=== PATIENT | male | born 1985 | race Caucasian/White ===

== ENCOUNTER 2024-12-16 19:03 | Inpatient (IN) | payer OTHER, SELFPAY ==
[2024-12-16] MEDS: TYLENOL 650 MG PO (19:19)
[2024-12-16 19:22] VITALS: BP 133/47
[2024-12-16 19:26] VITALS: BP 126/58
[2024-12-16 19:55] VITALS: BP 105/55
[2024-12-16 19:58] VITALS: BMI 27.4
[2024-12-16 20:22] LABS: % Basophils 0.6 % (0-2); % Eosinophils 1.2 % (0-6); % Immature Granulocytes 1.2 % (0-0.5); % Lymphocytes 16.4 % (20.5-51.1); % Monocytes 6.7 % (1.7-9.3); % Neutrophils 73.9 % (42.2-75.2); Absolute Basophils 0.1 10^3/uL (0-0.2); Absolute Eosinophils 0.1 10^3/uL (0-0.7); Absolute Immature Granulocytes 0.1 10^3/uL (0-0.05); Absolute Lymphocytes 1.4 10^3/uL (1.2-3.4); Absolute Monocytes 0.6 10^3/uL (0.1-0.6); Absolute Neutrophils 6.2 10^3/uL (1.4-6.5); Hematocrit 41.1 % (39.0-52.0); Hemoglobin 14.6 g/dL (13.0-18.0); Mean Corp Hgb Conc. 35.5 g/dL (33.0-37.0); Mean Corpuscular Hgb 32.7 pg (27.0-31.0); Mean Corpuscular Volume 91.9 fL (80.0-94.0); Mean Platelet Volume 8.7 fL (7.4-10.4); Nucleated Red Blood Cells % 0 % (-); Platelet Count 209 10^3/uL (130-400); Red Blood Cell Count 4.47 10^6/uL (4.70-6.10); Red Cell Dist. Width 12.7 % (11.5-14.5); White Blood Cell Count 8.4 10^3/uL (4.8-10.8)
[2024-12-16] MEDS: DILAUDID 0.5 MG IV ×2 (20:26→23:51)
[2024-12-16] MEDS: ENTRESTO 24 MG/26 MG 1 TAB PO (20:27)
[2024-12-16 20:32] LABS: Opiates Positive (Negative)
[2024-12-16 20:34] LABS: Amphetamines Negative (Negative); Barbiturates Negative (Negative); Benzodiazepines Negative (Negative); Buprenorphine Negative (Negative); Cocaine Negative (Negative)
[2024-12-16 20:35] LABS: Marijuana Negative (Negative); Methadone Negative (Negative); Methamphetamines Negative (Negative); Phencyclidine Negative (Negative); Tricyclic Antidepressants Negative (Negative)
[2024-12-16 20:39] LABS: INR 0.96; PT 13.3 Sec (11.4-14.6)
[2024-12-16 20:41] LABS: APTT 57.9 Sec (23.4-35.0); Fentanyl, Urine Negative (Negative)
[2024-12-16 20:52] LABS: ALT (SGPT) 46 U/L (0-50); AST (SGOT) 50 U/L (17-59); Alkaline Phosphatase 125 U/L (38-126); Blood Urea Nitrogen 15 mg/dl (9-20); Carbon Dioxide 26 mmol/L (22-30); Chloride 105 mmol/L (98-107); Estimated Creatinine Clearance 114 ml/min; Glucose 114 mg/dl (70-99); Potassium 4.6 mmol/L (3.5-5.1); Sodium 136 mmol/L (135-145); Total Bilirubin 0.9 mg/dl (0.2-1.3); Total Protein 6.8 g/dl (6.3-8.2); eGFR > 60.00
[2024-12-16] MEDS: HEPARIN 6900 UNITS IV (20:56)
--- NOTE | 2024-12-16 22:10 | PTCARENOTE ---
Patient arrived from [place] transport. SR on the monitor, HR in the 80s. VSS on room air. Alert and oriented x3. Neurological check WNL. Heparin running at 2300 from [facility] [employer], ptt obtained, protocol followed. 02/21 lower back pain, PRN Tylenol
and Dilaudid administered, see MAR. Oriented pt to room, admission assessment completed. Call mckee within reach.
--- NOTE | 2024-12-16 22:18 | HPS.HSE ---
Family Physician
-
Family Physician: NOT KNOW UNKNOWN - PT DOES
Chief Complaint
-
back pain, pleuritic pain
History of Present Illness
39yo M with PMHX of endocarditis x3, hx of IVDA, not currently on rugs, smoker came to [facility] with pleuritic chest pain, found L subsegmental pulmonary embolism and strted on anticoagulation. Also Echo showed severe AI and TR with reduced EF and
concern for either previous endocarditis or a new one. Bcx grew GPC in one set. Patient also c/o lower back pain started for the past 2 weeks. Transferrd to for possible valvular repair
Medical History
Past Medical History
Past Medical History: Reports Other
Additional Past Medical History:
See HPI
Past Surgical History: Reports None
Social History
Tobacco: Smoker
Alcohol: None
Drug: Former User
Family History
Family History: Not pertinent
Allergies / Home Medications
Allergies reflects when Allergies were last updated in [facility].
Home Medications with original date entered in [facility]
Allergy/Medication List:
Allergies
Allergy/AdvReac Type Severity Reaction Status Date / Time
No Known Allergies Allergy Unverified 12/16/24 16:27
Review of Systems
-
A 12 point ROS was completed and negative except as noted: Yes
Respiratory: Reports See HPI
Musculoskeletal: Reports See HPI
Physical Exam
Vital Signs
Vital Signs
Temp Pulse Resp BP Pulse Ox
97.9 F 77 18 105/55 98
12/16/24 19:52 12/16/24 20:27 12/16/24 19:52 12/16/24 20:27 12/16/24 19:52
Physical Exam
General: No Apparent Distress, Comfortable and Conversant
HEENT: NormoCephalic, Anicteric and Moist mucous membranes
Respiratory: Crackles (bibasilar); No Wheezes or Rales
Cardiac: S1/S2, Regular Rhythm and Murmur (diastolic)
GI: Soft, Non Tender and Non Distended
Genito-urinary: No costovertebral tender
Musculoskeletal: No Clubbing, No Cyanosis, No Edema and Other (thoracic and lumbar spine point tenderness to palpation)
Skin: Warm; No Dry or Rash
Neuro: Awake, Alert, Oriented and AO x 3
Psych: Calm
Laboratory Results
-
12/16/24 20:09
12/16/24 20:09
Laboratory Results
PT 13.3 Sec (11.4-14.6) 12/16/24 20:09
PT Cancelled 12/16/24 20:09
INR 0.96 12/16/24 20:09
INR Cancelled 12/16/24 20:09
APTT 57.9 Sec (23.4-35.0) H 12/16/24 20:09
Total Bilirubin 0.9 mg/dl (0.2-1.3) 12/16/24 20:09
AST 50 U/L (17-59) 12/16/24 20:09
ALT 46 U/L (0-50) 12/16/24 20:09
Alkaline Phosphatase 125 U/L (38-126) 12/16/24 20:09
Data Reviewed
-
Medical Tests (Nuc Med, Echo, EKG etc): Report Reviewed by me
Old Records: Reviewed
Impression/Plan
-
A/P:
#Severe AI and TR with concern for endocarditis
#HFrEF
COnt Entresto, Aldactone, BB, Faxiga
Add Lasix
Cardio, ID and Cardiothoracic consult
might need Echo
repeat Bcx
cont Vanco
#Pulmonary embolism
con heparin drip, eventual DOAC
#Back pain
with PMHX of IVDA and bacteremia - concern for vertebral infection. Pain extending from lower thoracic to lumbar spine - MRI ordered
DVt ppx on hep drip
Full code
I have spent at least 78min admitting the patient
[2024-12-16] MEDS: LASIX 40 MG IV (22:38)
[2024-12-16 22:39] VITALS: BP 120/46
[2024-12-16 23:03] VITALS: BP 115/50
[2024-12-16] MEDS: HEPARIN 25000 UNITS/250 ML IV (23:51)
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
[2024-12-17] MEDS: VANCOCIN 535 MG IV ×3 (00:14→19:53)
[2024-12-17 02:25] VITALS: BP 118/51
[2024-12-17] MEDS: DILAUDID 0.5 MG IV ×7 (02:59→23:15)
[2024-12-17 03:17] LABS: % Basophils 0.6 % (0-2); % Eosinophils 1.4 % (0-6); % Immature Granulocytes 1.5 % (0-0.5); % Lymphocytes 20.7 % (20.5-51.1); % Monocytes 8.4 % (1.7-9.3); % Neutrophils 67.4 % (42.2-75.2); Absolute Basophils 0.1 10^3/uL (0-0.2); Absolute Eosinophils 0.1 10^3/uL (0-0.7); Absolute Immature Granulocytes 0.1 10^3/uL (0-0.05); Absolute Lymphocytes 1.9 10^3/uL (1.2-3.4); Absolute Monocytes 0.8 10^3/uL (0.1-0.6); Absolute Neutrophils 6.3 10^3/uL (1.4-6.5); Hematocrit 40.2 % (39.0-52.0); Hemoglobin 14.1 g/dL (13.0-18.0); Mean Corp Hgb Conc. 35.1 g/dL (33.0-37.0); Mean Corpuscular Hgb 32.3 pg (27.0-31.0); Mean Corpuscular Volume 92.2 fL (80.0-94.0); Mean Platelet Volume 8.9 fL (7.4-10.4); Nucleated Red Blood Cells % 0 % (-); Platelet Count 215 10^3/uL (130-400); Red Blood Cell Count 4.36 10^6/uL (4.70-6.10); Red Cell Dist. Width 12.5 % (11.5-14.5); White Blood Cell Count 9.3 10^3/uL (4.8-10.8)
[2024-12-17 04:09] LABS: ALT (SGPT) 48 U/L (0-50); AST (SGOT) 48 U/L (17-59); Alkaline Phosphatase 120 U/L (38-126); Blood Urea Nitrogen 16 mg/dl (9-20); Calcium 8.9 mg/dl (8.4-10.2); Carbon Dioxide 26 mmol/L (22-30); Chloride 104 mmol/L (98-107); Estimated Creatinine Clearance 114 ml/min; Glucose 103 mg/dl (70-99); Magnesium 2.2 mg/dl (1.6-2.3); Potassium 4.3 mmol/L (3.5-5.1); Sodium 136 mmol/L (135-145); Total Bilirubin 0.8 mg/dl (0.2-1.3); eGFR > 60.00
[2024-12-17 04:40] LABS: TSH 2.82 uIU/ml (0.47-4.68)
[2024-12-17 05:08] LABS: INR 0.99; PT 13.6 Sec (11.4-14.6)
[2024-12-17 05:09] LABS: APTT 180.6 Sec (23.4-35.0)
[2024-12-17 06:00] VITALS: BMI 26.7
--- NOTE | 2024-12-17 07:35 | CON.CAR ---
Addendum entered and electronically signed by Jerrell Cifuentes MD 12/17/24 08:58:
I saw and examined the patient.
The Military Source Operations Specialist's note was reviewed and I agree with the note.
Comment:
GEN: No distress, awake, Ox3
HEENT: supple, anicteric, mmm
LUNGS: CTA, no wheezes/rales
CV: Reg, S1/S2, 2/6 syst LSB, no gallop
ABD: soft, BS+, NT/ND
EXT: No edema
NEURO: Gross non-focal
SKIN: No rash
PLan:
39-year-old male with past medical history of IV drug use and prior endocarditis x 3, last episode in 2017 treated conservatively with IV antibiotics presents to [facility] with severe back pains. He was found to have elevated white blood
cell count and echocardiogram suggestive of EF 37% severe aortic regurgitation and moderate to severe tricuspid regurgitation. Blood cultures were positive for gram-positive cocci, no organism identified as of yet. He denies any fevers or chills.
He states he has not used IV drugs in several years. He did have recent dental work 3 months ago where his teeth were pulled. CT scan of chest view also revealed on the left pulmonary embolism.
Check transthoracic echo today and LAURIE tomorrow.
MRI of the spine to evaluate for discitis/infectious process and back.
Continue vancomycin broad-spectrum antibiotics until bacteria identified.
LVEF was found to be 37%. He will be getting a CT scan to evaluate his coronary arteries. Continue Coreg, Entresto, spironolactone and Farxiga for now. He is on low-dose Lasix. Will check proBNP.
His EKG has no heart block and he has no clear signs of congestive heart failure.
Check CRP to evaluate inflammatory markers. His white blood cell count is normal and hemoglobin is 14.1.
The tentative plan is for likely CT surgery next week pending the results of his further testing.
Original Note:
Consultation
Consultation Request
Date/Time Consultation Performed: 12/17/24
Requesting Provider: Dr. Pineda
Performing Provider: Lor Rivera PA-C for Dr. Cifuentes
Reason for Consultation: endocarditis
Medical History
-
Chief Complaint: back pain
History of Present Illness:
Patient is a 39 yo M with PMH of IVDA (heroin, sober since 06/2023), history of endocarditis x3 in setting of prior IVDA, who presented to [facility] due to back pain. 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
the next morning felt as though he could barely walk. He went to urgent care who gave him 5 days of steroids however states the pain persisted. He then developed some pleuritic chest discomfort and he presented to [facility] ER. He was noted to have a
white count of 14. He underwent CTA which showed evidence of L PE. He was started on IV heparin. His chest imaging showed RV dysfunction out of proportion to PE burden and he underwent echo which showed EF 37% with severe AI and mod to severe TR
with echodensity of aortic valve and mobile lesion of LV outflow tract. He had 1 blood culture prelim positive for GPC. Transferred to [facility] for CT surgical evaluation. Remains with back pain. Denies fevers, chills. Reports he recently (within last 3
months) had his teeth pulled and is getting fitted for dentures.
PMH:
History of endocarditis x3 ~2017, treated with IV abx
Clot in setting of above requiring thrombectomy
History of IVDA (heroin, sober since 06/2023)
Multiple dental extractions over last several months
Tobacco use
Daily ETOH use (2-3 beers daily)
Past Medical History
Past Medical History: Other (in HPI)
Social History
Tobacco: Smoker (1 ppd)
Alcohol: Daily (2-3 beers)
Drug: Former User (heroin, quit 06/2023)
Employment: Employed
Family History
Family History: Reviewed & Not Pertinent
Allergies / Home Medications
Allergy/AdvReac Type Severity Reaction Status Date / Time
No Known Allergies Allergy Unverified 12/16/24 16:27
Review of Systems
-
History Source: Patient
All other systems: Negative unless noted
Physical Exam
Vital Signs
Temp Pulse Resp BP Pulse Ox
97.8 F 81 18 118/51 98
12/17/24 02:39 12/17/24 02:30 12/17/24 02:39 12/17/24 02:25 12/17/24 02:39
Lab Results
12/17/24 02:34
12/17/24 02:34
Physical Exam
General: No Apparent Distress and Comfortable
HEENT: Normocephalic, Anicteric and Moist Mucous Membranes
Respiratory: Clear and Non Labored Respirations
Cardiac: S1/S2, Regular Rhythm and Murmur
GI: Soft, Non Tender, Non Distended and Normal Bowel Sounds
Musculoskeletal: No Clubbing, No Cyanosis and No Edema
Skin: Warm and Dry
Neuro: AO x 3
Impression / Plan
-
Primary Natural Resources Extension Educator: ATC
Assessment:
Presentation to [facility] with back pain
Leukocytosis
L PE
Endocarditis
Severe AI and mod to severe TR with echodensity of AV and LVOT by echo at [facility]
Cardiomyopathy, EF 37% by echo at [facility]
History of endocarditis x3 ~2017, treated with IV abx
Clot in setting of above requiring thrombectomy
History of IVDA (heroin, sober since 06/2023)
Multiple dental extractions over last several months
Tobacco use
Daily ETOH use (2-3 beers daily)
ECHO at [facility]: EF 37% with Severe AI and mod to severe TR with echodensity of AV and LVOT appearing adherent onto the ventricular side of the base of the anterior mitral valve leaflet
ECHO 12/17/24: pending
Plan:
-Patient presented to [facility] with back pain and was found to have leukocytosis. Then by imaging noted to have left PE with evidence of RV dysfunction out of proportion to degree of pulmonary embolus burden. Underwent echocardiogram
which showed EF of 37% as well as severe AI and moderate to severe TR with echodensity of aortic valve as well as left ventricular outflow tract. Patient was then transferred to [facility] for CT surgical evaluation for endocarditis.
-ID evaluation. continue IV abx. follow blood cultures.
-for MRI today to further evaluate back pain. concern for discitis.
-for coronary as well as C/A/P CTA today
-continue IV heparin for PE
-EKG SR with NSSTS. in SR on review of tele overnight
-check TTE today
-will plan for LAURIE in AM. NPO after midnight
-for panelipse today. concern for oral etiology given recent extractions
-for CUS today
-does not appear to be in acute CHF. will follow on po lasix 20mg daily
-EF 37% by echo at [facility]. continue coreg, entresto, aldactone, farxiga. will have CM assess cost to patient of entresto/farxiga
-tentatively planned for surgery sometime next week
-tobacco/ETOH cessation
-d/w CT surgery
Data Reviewed
-
EKG: Tracing Personally Visualized and interpreted
CT Scan: Report Reviewed by me
Medical Tests (Nuc Med, Echo etc): Report Reviewed by me
Labs: Labs Reviewed by me
Old Records: Reviewed
[2024-12-17 07:38] VITALS: BP 116/35
[2024-12-17] MEDS: COREG 3.125 MG PO ×2 (07:56→19:52)
[2024-12-17] MEDS: ALDACTONE 25 MG PO (07:56)
[2024-12-17] MEDS: ENTRESTO 24 MG/26 MG 1 TAB PO ×2 (07:56→19:52)
[2024-12-17] MEDS: LASIX 20 MG PO (07:57)
[2024-12-17] MEDS: FARXIGA 5 MG PO (07:57)
--- NOTE | 2024-12-17 09:49 | PHA.VAN.FU ---
Vancomycin Assessment / Plan
- Assessment
Renal Function: Stable
WBC's are: WNL
In the past 24 hrs, patient has been: Afebrile
- Dosing Plan
Continue: VANCO 1750MG Q12
CONTINUE DOSING REGIMEN FROM [facility]
PREDICTED: AUC 646, PEAK 42.8, TROUGH 15.1
- Monitoring Plan
Peak Level: 6 @1000
Trough Level: 12/18 @1730
- Follow Up
Pharmacy will continue to follow.
Vancomycin Follow UP
- -
Patient Age: 39
Patient Sex: Male
Vancomycin Day #: 5 ([facility] TRANSFER, UNCLEAR EXACT START DATE)
Indication: Endocarditis
Requesting Provider: DR. WHITE
Height / Weight:
Height 5 ft 10 in
Actual Weight 84.4 kg
Pertinent Past Medical History: ENDOCARDITIS, HX PREVIOUS IVDA, PE
- Vital Signs / Lab Results
Temp Pulse Resp BP Pulse Ox
98 F 77 20 116/35 96
12/17/24 07:38 12/17/24 08:45 12/17/24 07:38 12/17/24 07:56 12/17/24 07:38
Lab Results - Hematology
12/16/24 12/17/24
20:09 02:34
WBC 8.4 9.3
Lab Results - Chemistry
12/16/24 12/17/24
20:09 02:34
BUN 15 16
Creatinine 0.9 0.9
Estimated Creat Clear 114 114
Albumin 4.0 4.0
--- NOTE | 2024-12-17 10:31 | PTCARENOTE ---
report received from previous RN at change of shift. Pt resting in bed, AAOx3. pt reports lower back pain and left sided pleural pain with deep breaths. SR on telemetry heart rate 70-80s. +murmur. +pulses, no edema. pt on room air. lung sounds
dimsinished in bases, fine crackles. active bowel sounds. voiding in urinal. pt updated on plan of care. heparin gtt infusing per protocol. see worklist for full nursing assessment and interventions.
[2024-12-17] MEDS: HEPARIN 25000 UNITS/250 ML IV ×2 (11:35→22:47)
[2024-12-17 11:38] LABS: NT-proBNP 835 pg/ml
[2024-12-17 11:46] VITALS: BP 113/61
[2024-12-17 12:03] LABS: APTT 89.3 Sec (23.4-35.0)
--- NOTE | 2024-12-17 12:22 | W.PN.HOSP.TC ---
Today's Communication/Plan
-
Await for matthews CT imaging
Carotid ultrasound pending
MRI of the back pending
Continue with broad-spectrum antibiotic
Continue with IV heparin infusion
Await CT surgery input
ID evaluation pending
Assessment / Plan
Assessment / Plan
General: No Apparent Distress, Comfortable and Conversant
HEENT: NormoCephalic, Anicteric and Moist mucous membranes
Respiratory: Crackles (bibasilar); No Wheezes or Rales
Cardiac: S1/S2, Regular Rhythm and Murmur
GI: Soft, Non Tender and Non Distended
Genito-urinary: No costovertebral tender
Musculoskeletal: No Clubbing, No Cyanosis, No Edema and Other (thoracic and lumbar spine point tenderness to palpation)
Skin: Warm; No Dry or Rash
Neuro: Awake, Alert, Oriented and AO x 3
Psych: Calm
#Severe AI and TR with concern for endocarditis
#Back pain
with PMHX of IVDA and bacteremia - concern for vertebral infection. Pain extending from lower thoracic to lumbar spine - MRI ordered
History of endocarditis
Continue with broad-spectrum antibiotics for now
MRSA screen pending
Blood cultures and lab
Transthoracic echo and LAURIE pending
CRP elevated.
Infectious disease evaluation
# Acute pulmonary embolism
Continue with heparin drip infusion for now until surgical plan is confirmed.
# Chronic HFrEF
Continue with goal-directed medical therapy with Farxiga, Entresto, Aldactone, Lasix
Monitor creatinine closely
Currently looks euvolemic
# Alcohol abuse
Low likelihood of withdrawal
# History of IV drug abuse
Currently states he is drug-free
#Tobacco abuse
Currently on nicotine patch.
Counseled on cessation.
DVt ppx on hep drip
Full code
Anticipated Discharge: > 48 hours
Subjective/Interval History
-
Date of Service: December 17, 2024
Patient states of left low pain with deep inspiration
Objective Data
-
Labs:
Laboratory Results
12/17/24 12/17/24 12/17/24
02:34 02:34 11:38
WBC 9.3
Hgb 14.1
Hct 40.2
Plt Count 215
PT 13.6
INR 0.99
APTT 180.6 H* Cancelled 89.3 H
Sodium 136
Potassium 4.3
Chloride 104
Carbon Dioxide 26
BUN 16
Creatinine 0.9
Glucose 103 H
Calcium 8.9
Total Bilirubin 0.8
AST 48
ALT 48
Alkaline Phosphatase 120
12/17/24
18:00
WBC
Hgb
Hct
Plt Count
PT
INR
APTT Pending
Sodium
Potassium
Chloride
Carbon Dioxide
BUN
Creatinine
Glucose
Calcium
Total Bilirubin
AST
ALT
Alkaline Phosphatase
Vital Signs:
Vital Signs
Temp Pulse Resp BP Pulse Ox
98 F 77 20 113/61 97
12/17/24 12:13 12/17/24 12:00 12/17/24 12:13 12/17/24 11:46 12/17/24 12:13
I&O
12/16/24 12/17/24 12/18/24
06:59 06:59 06:59
Intake Total 480 / 480
Output Total 500 / 500
Balance -500 / -500 480 / 480
Data Reviewed
-
Total Time Spent with Patient (in minutes): 55
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
--- NOTE | 2024-12-17 13:58 | CM ---
Reviewed chart. Met with Mr. Thomas to review discharge plans. He states prior to admission he resides in a three story boarding home. He states he has two flight of steps to get to his bedroom. He states the full bathroom is on the second floor.
He states prior to admission he was independent with ambulation and adls. He states he does not have any DME in the home. He states he has a prescription plan. Medical work-up in progress. The discharge plan is ti return home when medically
stable.
[2024-12-17 15:08] VITALS: BP 109/43
--- NOTE | 2024-12-17 16:13 | PTCARENOTE ---
pt refused laxatives- hospitalist notified.
[2024-12-17 18:31] LABS: APTT 82.2 Sec (23.4-35.0)
[2024-12-17 19:08] VITALS: BP 104/52
[2024-12-17 19:10] LABS: Urine Albumin 1+ (Neg - Trace); Urine Bilirubin Negative (Negative); Urine Character Clear (Clear); Urine Color Yellow; Urine Glucose 4+ (Negative); Urine Ketone Negative (Negative); Urine Leukocyte Negative (Negative); Urine Nitrite Negative (Negative); Urine Occult Blood 1+ (Negative); Urine Urobilinogen Negative (Neg - 1+)
[2024-12-17 19:25] LABS: Urine Bacteria Few (Negative)
[2024-12-17 22:27] VITALS: BP 103/82
--- NOTE | 2024-12-18 00:07 | PTCARENOTE ---
Assumed care of patient at change of shift. Patient ambulating self in room w/out difficulty. Neuro WNL. Tele monitor shows NSR, VSS, and sating 95-97% RA. Patient c/o pain on his left lateral side when taking in a deep breathe. Pete COVINGTON
aware. PRN Dilaudid administered--see MAR for further details. IS performed w/ a result of 1000. Patient aware to maintain NPO status at midnight for echo/[place] on 12/18. IV Heparin gtt currently infusing at 23ml/hr, ptt therapeutic. Next ptt due at
06:00. Patient refusing stool softeners but reports moving his bowels twice during the day. POC ongoing, call mckee within reach.
[2024-12-18] MEDS: DILAUDID 0.5 MG IV ×6 (02:44→21:41)
[2024-12-18 02:54] VITALS: BP 105/63
[2024-12-18 05:12] VITALS: BMI 26.5
[2024-12-18 05:23] LABS: % Basophils 0.6 % (0-2); % Eosinophils 1.2 % (0-6); % Immature Granulocytes 1.2 % (0-0.5); % Lymphocytes 16.3 % (20.5-51.1); % Monocytes 10.2 % (1.7-9.3); % Neutrophils 70.5 % (42.2-75.2); Absolute Basophils 0.1 10^3/uL (0-0.2); Absolute Eosinophils 0.1 10^3/uL (0-0.7); Absolute Immature Granulocytes 0.1 10^3/uL (0-0.05); Absolute Lymphocytes 1.5 10^3/uL (1.2-3.4); Absolute Neutrophils 6.5 10^3/uL (1.4-6.5); Hemoglobin 14.2 g/dL (13.0-18.0); Mean Corp Hgb Conc. 35.5 g/dL (33.0-37.0); Mean Corpuscular Hgb 32.7 pg (27.0-31.0); Mean Corpuscular Volume 92.2 fL (80.0-94.0); Mean Platelet Volume 8.7 fL (7.4-10.4); Nucleated Red Blood Cells % 0 % (-); Platelet Count 222 10^3/uL (130-400); Red Blood Cell Count 4.34 10^6/uL (4.70-6.10); Red Cell Dist. Width 12.4 % (11.5-14.5); White Blood Cell Count 9.3 10^3/uL (4.8-10.8)
[2024-12-18 05:41] LABS: APTT 106.8 Sec (23.4-35.0)
[2024-12-18] MEDS: VANCOCIN 535 MG IV ×2 (06:03→17:58)
[2024-12-18 06:25] LABS: ALT (SGPT) 45 U/L (0-50); AST (SGOT) 39 U/L (17-59); Albumin 3.9 g/dl (3.5-5.0); Alkaline Phosphatase 117 U/L (38-126); Blood Urea Nitrogen 19 mg/dl (9-20); Calcium 8.8 mg/dl (8.4-10.2); Carbon Dioxide 23 mmol/L (22-30); Chloride 107 mmol/L (98-107); Estimated Creatinine Clearance > 125 ml/min; Glucose 99 mg/dl (70-99); Potassium 4.5 mmol/L (3.5-5.1); Sodium 135 mmol/L (135-145); Total Bilirubin 0.9 mg/dl (0.2-1.3); Total Protein 6.9 g/dl (6.3-8.2); eGFR > 60.00
[2024-12-18 06:59] VITALS: BP 119/40
[2024-12-18 08:17] LABS: Erythrocyte Sed Rate 34 mm/hour (0-20)
--- NOTE | 2024-12-18 08:36 | W.PN.UPDATE ---
Update Note
Progress Note Update
Unable to calculate a STS risk score d/t the category patient is in. We will continue ongoing surgical work up and patient is tentatively scheduled for Saturday12/23/[address] Pugh. LAURIE pending for today.
--- NOTE | 2024-12-18 10:28 | PTCARENOTE ---
pt off unit for MRI and LAURIE. Report given to labor union business representative.
[2024-12-18 12:01] VITALS: BP 96/82
[2024-12-18] MEDS: COREG 3.125 MG PO ×2 (12:22→20:17)
[2024-12-18] MEDS: ENTRESTO 24 MG/26 MG PO (12:23)
[2024-12-18] MEDS: ALDACTONE PO (12:23)
[2024-12-18] MEDS: FARXIGA PO (12:24)
[2024-12-18] MEDS: HEPARIN 25000 UNITS/250 ML IV ×2 (12:25→21:45)
--- NOTE | 2024-12-18 12:53 | W.PN.HOSP.TC ---
Today's Communication/Plan
-
Surveillance cultures
Continue with broad-spectrum antibiotics
Continue with goal-directed medical therapy
Assessment / Plan
Assessment / Plan
General: No Apparent Distress, Comfortable and Conversant
HEENT: NormoCephalic, Anicteric and Moist mucous membranes
Respiratory: Crackles (bibasilar); No Wheezes or Rales
Cardiac: S1/S2, Regular Rhythm and Murmur
GI: Soft, Non Tender and Non Distended
Genito-urinary: No costovertebral tender
Musculoskeletal: No Clubbing, No Cyanosis, No Edema and Other (thoracic and lumbar spine point tenderness to palpation)
Skin: Warm; No Dry or Rash
Neuro: Awake, Alert, Oriented and AO x 3
Psych: Calm
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
#Back pain likely secondary to osteoarthrosis suspected discitis osteomyelitis at L5-S1-
#History of endocarditis x 3
Continue with broad-spectrum antibiotics for now-vancomycin
MRSA screen negative
Blood cultures growing gram-positive.
Surveillance cultures ordered
Transesophageal echocardiogram showing endocarditis involving LVOT, AV with perforation and severe AR, and tricuspid valve. Tricuspid valve lesion is calcified�may be old but TR is severe.
CRP elevated.
MRI of the thoracic spine negative
MRI of the lumbar spine abnormal finding at L5-S1 level Osteoarthritis versus discitis/osteomyelitis
Plan for surgery next week and agree with CT surgery that would like culture clearance
Infectious disease evaluation
# Acute pulmonary embolism
Continue with heparin drip infusion for now until surgical plan is confirmed.
#Splenic infarcts/ pulmonary nodules likely septic emboli
Pain control. On anticoagulation.
# Chronic HFrEF
Continue with goal-directed medical therapy with Farxiga, Entresto, Aldactone, Lasix
Monitor creatinine closely
Currently looks euvolemic
# Alcohol abuse
Low likelihood of withdrawal
# History of IV drug abuse
Currently states he is drug-free
#Tobacco abuse
Currently on nicotine patch.
Counseled on cessation.
DVt ppx on hep drip
Full code
Anticipated Discharge: > 48 hours
Subjective/Interval History
-
Date of Service: December 18, 2024
states of intermittent low back pain
Objective Data
-
Labs:
Laboratory Results
12/18/24
05:08
WBC 9.3
Hgb 14.2
Hct 40.0
Plt Count 222
APTT 106.8 H
Sodium 135
Potassium 4.5
Chloride 107
Carbon Dioxide 23
BUN 19
Creatinine 0.8
Glucose 99
Calcium 8.8
Total Bilirubin 0.9
AST 39
ALT 45
Alkaline Phosphatase 117
Vital Signs:
Vital Signs
Temp Pulse Resp BP Pulse Ox
98.1 F 83 20 96/82 96
12/18/24 06:59 12/18/24 12:22 12/18/24 06:59 12/18/24 12:22 12/18/24 07:36
I&O
12/17/24 12/18/24 12/19/24
06:59 06:59 06:59
Intake Total 2010 535 / 535
Output Total 500 / 500
Balance -500 / -500 2010 535 / 535
Data Reviewed
-
Total Time Spent with Patient (in minutes): 55
--- NOTE | 2024-12-18 13:00 | W.PN.CARDCBS ---
Addendum entered and electronically signed by Jerrell Cifuentes MD 12/18/24 14:29:
I saw and examined the patient.
The Manager Play's note was reviewed and I agree with the note.
Comment:
GEN: No distress, awake, Ox3
HEENT: supple, anicteric, mmm
LUNGS: CTA, no wheezes/rales
CV: Reg, S1/S2, 2/6 syst LSB, no gallop
ABD: soft, BS+, NT/ND
EXT: No edema
NEURO: Gross non-focal
SKIN: No rash
PLan:
LAURIE reviewed. 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 Will discuss the findings with CT surgery especially at the aorto mitral annulus.
MRI of the spine suggest possible discitis. Will need evaluation by spine/neurosurgery.
Blood cultures are currently positive here. Continue antibiotics.
He remains on IV heparin. Will need to review CT scan with radiology to assess whether previous scans are consistent with pulmonary embolism or septic emboli. He also has evidence of possible splenic infarcts.
His blood pressure remains marginal. Continue Coreg and Lasix. Would hold on Entresto/Aldactone for now.
LVEF by echocardiogram here at [place] is improved at 45 to 50%.
Original Note:
Today's Communication / Plan
-
IV abx
IV heparin
neurosurg consult
follow blood cultures
tentatively planned for double valve surgery next week
Impression / Plan
-
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
Assessment:
Presentation to [facility] with back pain
Leukocytosis
L PE
Endocarditis
Severe AI and mod to severe TR with echodensity of AV and LVOT by echo at [facility]
Cardiomyopathy, EF 37% by echo at [facility]
History of endocarditis x3 ~2017, treated with IV abx
Clot in setting of above requiring thrombectomy
History of IVDA (heroin, sober since 06/2023)
Multiple dental extractions over last several months
Tobacco use
Daily ETOH use (2-3 beers daily)
ECHO at [facility]: EF 37% with Severe AI and mod to severe TR with echodensity of AV and LVOT appearing adherent onto the ventricular side of the base of the anterior mitral valve leaflet
ECHO 12/17/24: EF 45-50%, possible basal inferior hypokinesis, stage 1 diastolic dysfunction, mobile echodensities at junction of anterior leaflet of mitral valve in LVOT, mod sized highly mobile echodensity of NCC, severe AR, small mobile echodensity
suspicious for endocarditis on tricuspid valve with moderate to severe TR, PAP 30 mmHg
Plan:
-s/p LAURIE today with EF 45 to 50%, large highly mobile echodensity of aortic valve appears to be associated with LVOT near anterior leaflet of mitral valve, no mitral valve regurgitation, another vegetation associated with aortic valve, leaflet
perforation at [facility] and also some involvement of NCC, severe AR, calcified echodensity associated of tricuspid valve with severe TR
-spine MRI with evidence of possible discitis/mild osteomyelitis with no abscess. discussed with ortho, they do not cover spine, so consulted neuro surgery for eval
-continue IV abx. follow blood cultures
-tentatively planned for double valve surgery mid week
-in SR on review of tele
-continue IV heparin for PE
-CUS with <50% stenosis B/L
-does not appear to be in acute CHF. will follow on po lasix 20mg daily
-EF 37% by echo at [facility], 45-50% by echo 12/17. continue coreg, entresto, aldactone, farxiga. will have CM assess cost to patient of entresto/farxiga
-tobacco/ETOH cessation
-d/w CT surgery
PREADMIT DATA:
-Patient presented to [facility] with back pain and was found to have leukocytosis. Then by imaging noted to have left PE with evidence of RV dysfunction out of proportion to degree of pulmonary embolus burden. Underwent echocardiogram
which showed EF of 37% as well as severe AI and moderate to severe TR with echodensity of aortic valve as well as left ventricular outflow tract. Patient was then transferred to [facility] for CT surgical evaluation for endocarditis.
Progress Note - Tea Leaf Reader
Subjective
Date of Service: December 18, 2024
reports continued back pain and pleuritic pain
Objective
Labs:
12/18/24 05:08
12/18/24 05:08
Labs
Hgb 14.2 g/dL (13.0-18.0) 12/18/24 05:08
Hct 40.0 % (39.0-52.0) 12/18/24 05:08
Plt Count 222 10^3/uL (130-400) 12/18/24 05:08
PT 13.6 Sec (11.4-14.6) 12/17/24 02:34
INR 0.99 12/17/24 02:34
APTT 106.8 Sec (23.4-35.0) H 12/18/24 05:08
Sodium 135 mmol/L (135-145) 12/18/24 05:08
Potassium 4.5 mmol/L (3.5-5.1) 12/18/24 05:08
BUN 19 mg/dl (9-20) 12/18/24 05:08
Creatinine 0.8 mg/dL (0.7-1.3) 12/18/24 05:08
Glucose 99 mg/dl (70-99) 12/18/24 05:08
Vital Signs and I&O:
Vital Signs
Temp Pulse Resp BP Pulse Ox
98.1 F 83 20 96
12/18/24 06:59 12/18/24 12:22 12/18/24 06:59 12/18/24 12:22 12/18/24 07:36
Vital Signs
Temp Pulse Resp BP Pulse Ox
98.1 F 83 20 96/82 96
12/18/24 06:59 12/18/24 12:22 12/18/24 06:59 12/18/24 12:22 12/18/24 07:36
Intake & Output
12/16/24 12/17/24 12/18/24 12/19/24
07:59 07:59 07:59 07:59
Intake Total 2546 / 2546
Output Total 500 / 500
Balance -500 / -20 2546 / 2546
Physical Exam
Physical Exam
GEN: No distress, awake, alert, oriented x3
HEENT: supple, anicteric, mmm, eomi
LUNGS: CTA B/L, no wheezes/rales
CV: Reg, S1/S2, 2/6 murmur
ABD: soft, BS+, NT/ND
EXT: No cyanosis, clubbing, edema
NEURO: Gross non-focal
SKIN: Warm, pink, dry. No rash
--- NOTE | 2024-12-18 13:10 | RESPNOTE ---
Patient declining bedside PFT at this time ' it hurts to much to take a deep breath, I cant do that.' CAP SEWER Shreya notified will attempt again tomorrow
--- NOTE | 2024-12-18 13:27 | CM ---
Reviewed chart . Met with Mr. Thomas to review discharge plans. He states he is feeling okay. He states some discussion about surgery next week. Prior to admission he resides in a three story boarding home He has to go up two full flight of stps to
get to his bedroom. His full bathroom is on the second floor. Prior to admission he was independent with ambulation and adls. He does not have any DME in the home. He has a prescription plan. Medical work-up in progress. The discharge plan is to
return home when medically stable.
[2024-12-18] MEDS: LASIX PO (13:55)
--- NOTE | 2024-12-18 14:21 | PHA.VAN.FU ---
Addendum entered and electronically signed by Shanice Lombardo, [facility] 12/18/24 18:49:
Peak level resulted at 22.4 (drawn late, ~4.5 hours after 0600 dose as pt was off of the unit)
Trough level resulted at 16 (drawn appropriately)
Plan to continue vancomycin 1750mg Q12H
Consider repeat levels in next few days
Original Note:
Vancomycin Assessment / Plan
- Assessment
Renal Function: Stable
WBC's are: WNL
In the past 24 hrs, patient has been: Afebrile
- Dosing Plan
Continue: vancomycin 1750 mg q12h
- Monitoring Plan
Peak Level: pending 12/18
Trough Level: pending 12/18
- Follow Up
Pharmacy will continue to follow.
Vancomycin Follow UP
- -
Patient Age: 39
Patient Sex: Male
Vancomycin Day #: 6 ([facility] TRANSFER, UNCLEAR EXACT START DATE)
Indication: Endocarditis
Requesting Provider: DR. WHITE
Height / Weight:
Height 5 ft 10 in
Actual Weight 83.9 kg
Pertinent Past Medical History: ENDOCARDITIS, HX PREVIOUS IVDA, PE
- Vital Signs / Lab Results
Temp Pulse Resp BP Pulse Ox
98.1 F 83 20 96/82 96
12/18/24 06:59 12/18/24 12:22 12/18/24 06:59 12/18/24 12:22 12/18/24 07:36
Lab Results - Hematology
12/16/24 12/17/24 12/18/24
20:09 02:34 05:08
WBC 8.4 9.3 9.3
Lab Results - Chemistry
12/16/24 12/17/24 12/18/24
20:09 02:34 05:08
BUN 15 16 19
Creatinine 0.9 0.9 0.8
Estimated Creat Clear 114 114 > 125
Albumin 4.0 4.0 3.9
Lab Results - Urine
12/17/24
19:05
Urine Nitrite (Reflex) Negative
Leukocyte Esterase Rfl Negative
Ur Squamous Epith Cells 3-5
Microbiology Results
12/16/24 22:52 Blood Culture - Preliminary
Blood/Venous Positive culture in progress
Gram Stain - Preliminary
12/16/24 23:46 Blood Culture - Preliminary
Blood/Venous Positive culture in progress
Gram Stain - Preliminary
12/16/24 20:09 MRSA Screen - Final
Nose No Methicillin Resistant Staphylococcus aureus isolated.
--- NOTE | 2024-12-18 15:08 | CON.NS ---
Consultation
-
Date/Time Consultation Performed: 12/18/2024; 15:10
Performing Provider: Paulina
Chief Complaint
History of Present Illness
This is a neurosurgical consultation at 39-year-old gentleman, transferred from [facility] to [facility]. He has a active medical issues including endocarditis, history of drug IV drug abuse, smoker, who presented with pleuritic
chest pain. He was found to have pulmonary embolus, started on anticoagulation. Echo cardiogram demonstrated AIN TR with reduced ejection fraction. Gram-positive cocci with blood cultures were grown. He also had significant low back pain, that
has been ongoing for the last several weeks. He has been on IV vancomycin for his bacteremia. Ejection fraction was found to be 37%. Given back pain, and bacteremia, patient underwent MRI.
Patient seen examined. Reports lower lumbosacral, midline back pain, with some radiation to the bilateral buttock area. He denies any numbness, tingling, or weakness of the lower extremities. He denies any bowel or bladder changes. He has some
radiation of pain into the groin area as well. Denies any perineal numbness.
Reports his symptoms started approximately 2 weeks ago, without any inciting event or trauma.
Review of Systems
-
10 point review of systems including constitutional, ENT, cardiovascular, respiratory, GI, , neurologic, endocrinologic, hematologic, psychiatric, musculoskeletal was performed, and was negative except for as stated in HPI.
Medication and Allergies
Allergies
Allergies
Allergy/AdvReac Type Severity Reaction Status Date / Time
No Known Allergies Allergy Unverified 12/16/24 16:27
Physical Exam
-
Exam:
Awake, alert, no apparent distress.
Cranial nerves II to XII grossly intact.
Speech is fluent, comprehension intact, repetition is normal
Motor: 5/5 strength bilaterally in the upper extremities, lower extremities.
Sensation to light touch is intact bilaterally in the upper and lower extremities.
Head is normocephalic, atraumatic.
Neck is supple
Breathing nonlabored
Cardiac: Regular rate
Abdomen is soft
Extremities are warm
Pulses palpable bilaterally
MRI of the thoracic spine with and without contrast performed on 12/18/2024 was reviewed. Images were personally viewed and interpreted by me. There is no obvious evidence of acute cord compression within the thoracic spine. No evidence of
contrast-enhancement within the thoracic cord. MRI of the lumbar spine with without contrast was reviewed. Images reports viewed and interpreted by me. There is evidence of contrast-enhancement of the L5-S1 endplates, and intervening disc, which
could be consistent/suspicious for possible early osteomyelitis/discitis. Less likely this is consistent with degenerative changes. No evidence of epidural abscess, or neural compression is noted.
Assessment / Plan
-
This is a 39-year-old gentleman with endocarditis, slated for valvular repair next week. Patient also noted to have bacteremia. He has had progressive back pain over the last several weeks. MRI of the lumbar spine does demonstrate
contrast-enhancement of the L5-S1 endplates, and intervening disc, which could be consistent with early osteodiscitis.
Given no evidence of neural compression, would not recommend surgical intervention at present time.
Recommend treatment of primary infectious etiology/source, which is bacteremia from endocarditis, which according to chart review will be valvular repair and IV antibiotics.
Recommend surveillance imaging studies (MRI of the lumbar spine with and without contrast)
in approximately 6 weeks to ensure that presumed osteodiscitis is responding, sooner should new symptoms occur/examination change.
[2024-12-18 15:11] VITALS: BP 126/44
--- NOTE | 2024-12-18 15:33 | W.PN.ID1 ---
Date of Service
Date of Service: December 18, 2024
Today's Communication
Continue antibiotics.
Assessment / Plan
Abnormal echocardiogram concerning for endocarditis
Bacteremia with coag negative staph
L5-S1 discitis
Elevated CRP
Hx prior endocarditis (x 3)
Recommendations:
Continue with empiric vancomycin.
Blood cultures at OSH are currently being worked up for full microbial identification and susceptibility.
Blood cultures here now positive. Awaiting full identification and susceptibility.
Monitor vancomycin levels to prevent nephrotoxicity.
Monitor white count and temperature curve.
Patient for possible valve replacement next week.
����������������������������������������������������������
Chief Complaint
-: Bacteremia and Other (Endocarditis; lumbar discitis)
Subjective / Review of Systems
Patient seen and examined. No significant changes overnight. Notes ongoing low back pain.
Review of Systems: No Fever
Vital Signs / Physical Exam
Vital Signs
Vital Signs
Temp Pulse Resp BP Pulse Ox
97.5 F 83 20 96/82 97
12/18/24 15:10 12/18/24 12:22 12/18/24 15:10 12/18/24 12:22 12/18/24 15:10
Physical Exam
Constitutional: No Acute Distress, Comfortable and Non-toxic
Eyes: No Conjunctival Hemorrhage and Sclera Anicteric
Cardiovascular: Regular Rate, S1/S2 and Murmur; Negative S3/S4
Pulmonary: Clear; Negative Wheezes, Rales or Rhonchi
Gastrointestinal: Soft, Non Tender, Non Distended and Normal Bowel Sounds
Extremities: Edema; Negative Cyanosis, Erythema, Splinter Hemorrhage or Janeway Lesions
Skin: Warm and Dry; Negative Rash or Jaundice
Neurological: Awake and Alert
Psychological: Calm
Objective Data
Lab Data
Lab Results
12/18/24 05:08
12/18/24 05:08
ESR 34 mm/hour (0-20) H 12/18/24 05:08
PT 13.6 Sec (11.4-14.6) 12/17/24 02:34
INR 0.99 12/17/24 02:34
APTT 106.8 Sec (23.4-35.0) H 12/18/24 05:08
Estimated Creat Clear > 125 ml/min 12/18/24 05:08
Total Bilirubin 0.9 mg/dl (0.2-1.3) 12/18/24 05:08
AST 39 U/L (17-59) 12/18/24 05:08
ALT 45 U/L (0-50) 12/18/24 05:08
Alkaline Phosphatase 117 U/L (38-126) 12/18/24 05:08
C-Reactive Protein 52.60 mg/L (0.0-10.00) H 12/17/24 02:34
Most recent labs reviewed.
Micro Results:
12/16/24 22:52 Blood Culture - Preliminary
Blood/Venous Positive culture in progress
Gram Stain - Preliminary
12/16/24 23:46 Blood Culture - Preliminary
Blood/Venous Positive culture in progress
Gram Stain - Preliminary
12/16/24 20:09 MRSA Screen - Final
Nose No Methicillin Resistant Staphylococcus aureus isolated.
12/14/20241734
Blood/Venous Blood Culture :
Coag negative staph
12/14/2024 1730
Blood/Venous Blood Culture :
Coag negative staph
Imaging:
12/18/2024 ECHO ([facility]): EF approximately 45%. Trileaflet aortic valve with a large highly mobile echodensity noted also concern for anterior leaflet mitral valve vegetation. Please see full dictation for additional detail
12/18/2024 MRI thoracic and lumbar spine: In the thoracic spine there is no evidence of discitis or osteomyelitis. No epidural abscess or focal disc protrusion. On the lumbar MRI there is disc space narrowing at L5-S1 which is suspicious for
discitis and mild osteomyelitis. No epidural collection or abscess is noted.
12/17/2024 CT chest/abdomen/pelvis: Possible aortic valve vegetation. 2 splenic hypodense wedge-shaped areas suspicious for splenic infarcts. Pulmonary nodules also noted suspicious for possible septic emboli. Please see full dictation for
additional detail.
ECHO at [facility]: EF 37% with Severe AI and mod to severe TR with echodensity of AV and LVOT appearing adherent onto the ventricular side of the base of the anterior mitral valve leaflet
[2024-12-18 16:01] LABS: Vancomycin Peak 22.4 ug/ml (18-26)
[2024-12-18 18:00] LABS: APTT 63.2 Sec (23.4-35.0)
[2024-12-18] MEDS: HEPARIN 6900 UNITS IV (18:38)
[2024-12-18 19:08] VITALS: BP 126/70
--- NOTE | 2024-12-18 19:26 | PTCARENOTE ---
pt continues to be sr on the monitor, hr in the 70s, vss. pt offers no complaints at this time. neuro checks unchanged from previous shift. heparin gtt running pre protocol. pt continues to c/o pain in left flank when breathing, Dilaudid given as
ordered, see MAR. pt finds relief. pt ambulating in room and tolerating well. pt educated on plan of care and pt verbalized understanding. call mckee within reach.
[2024-12-18] MEDS: ENTRESTO 24 MG/26 MG 1 TAB PO (20:16)
[2024-12-18 22:50] VITALS: BP 126/51
[2024-12-19] MEDS: DILAUDID 0.5 MG IV ×5 (01:08→22:27)
[2024-12-19 01:34] LABS: APTT 124.6 Sec (23.4-35.0)
--- NOTE | 2024-12-19 03:46 | PTCARENOTE ---
Pt. complaining of intermittent left lower back/flank pain with inspiration and movement this shift. Pulse ox on RA 96%, left lung base breath sounds diminished. Medicated with Dilaudid with adequate results obtained. NSR on the monitor with no
complaints of chest pain. Heparin gtt infusing as per order. Pt. sleeping.
[2024-12-19 04:27] VITALS: BP 119/46
[2024-12-19 04:34] VITALS: BMI 26.8
[2024-12-19] MEDS: VANCOCIN 535 MG IV (05:23)
[2024-12-19] MEDS: HEPARIN 25000 UNITS/250 ML IV ×2 (07:06→17:49)
[2024-12-19 07:43] VITALS: BP 101/35
--- NOTE | 2024-12-19 07:50 | PHA.VAN.FU ---
Vancomycin Assessment / Plan
- Assessment
Renal Function: No New Labs Today (labs not collected yet this AM)
- Assessment - Therapeutic Drug Monitoring
Extrapolated Cmax (mcg/mL): 31
Peak level was drawn: More than 3 hours after previous dose (drawn ~4.7H after end of previous infusion)
Extrapolated Cmin (mcg/mL): 15.5
Trough Drawn: Appropriately
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
Calculated AUC (mcg*h/mL): 541
Calculated ke: 0.0689
Calculated half life (H): 10.1
Calculated Vd (L): 94 (~1.1 L/kg)
Calculated Vanc CL (ml/min): 108
Peak was drawn late - Cmax & AUC are likely underestimated from true values and half-life may be overestimated
- Dosing Plan
Adjust Regimen to: Vanc 1500mg Q12H
New Regimen Predicts: AUC (488), Peak (28.4), Trough (13.8)
Predicted PK values have reduced accuracy due to late peak; however, linear PK predicts similar trough
- Monitoring Plan
No level(s) ordered at this time: consider repeat levels in next few days
- Follow Up
Pharmacy will continue to follow.
Vancomycin Follow UP
- -
Patient Age: 39
Patient Sex: Male
Vancomycin Day #: 7 ([facility] TRANSFER, UNCLEAR EXACT START DATE)
Indication: Endocarditis
Requesting Provider: Dr. Pineda
Pertinent Antimicrobial Allergies:
NKDA
Height / Weight:
Height 5 ft 10 in
Actual Weight 84.6 kg
Pertinent Past Medical History: Hx of IV JONA, Endocarditis
- Vital Signs / Lab Results
Temp Pulse Resp BP Pulse Ox
98.0 F 76 18 119/46 98
12/19/24 04:28 12/19/24 05:00 12/19/24 04:28 12/19/24 04:27 12/19/24 04:28
Lab Results - Hematology
12/16/24 12/17/24 12/18/24
20:09 02:34 05:08
WBC 8.4 9.3 9.3
Lab Results - Chemistry
12/16/24 12/17/24 12/18/24
20:09 02:34 05:08
BUN 15 16 19
Creatinine 0.9 0.9 0.8
Estimated Creat Clear 114 114 > 125
Albumin 4.0 4.0 3.9
Microbiology Results
12/16/24 23:46 Blood Culture - Preliminary
Blood/Venous Positive culture in progress
Gram Stain - Final
12/16/24 22:52 Blood Culture - Preliminary
Blood/Venous Positive culture in progress
Gram Stain - Preliminary
12/16/24 20:09 MRSA Screen - Final
Nose No Methicillin Resistant Staphylococcus aureus isolated.
Therapeutic Drug Monitoring
Vancomycin Peak 22.4 ug/ml (18-26) 12/18/24 12:45
Vancomycin Trough 16.0 ug/ml (5-20) 12/18/24 17:38
--- NOTE | 2024-12-19 08:15 | RESPNOTE ---
Attempt made for bedside PFT, patient declining due to pain when taken deep breaths. Explained its an important part of the preoperative testing, still declining. Will follow up
[2024-12-19 08:48] LABS: % Basophils 0.6 % (0-2); % Immature Granulocytes 0.9 % (0-0.5); % Lymphocytes 17.7 % (20.5-51.1); % Monocytes 8.3 % (1.7-9.3); % Neutrophils 71.5 % (42.2-75.2); Absolute Basophils 0.1 10^3/uL (0-0.2); Absolute Eosinophils 0.1 10^3/uL (0-0.7); Absolute Immature Granulocytes 0.1 10^3/uL (0-0.05); Absolute Lymphocytes 1.5 10^3/uL (1.2-3.4); Absolute Monocytes 0.7 10^3/uL (0.1-0.6); Absolute Neutrophils 6.2 10^3/uL (1.4-6.5); Hemoglobin 13.1 g/dL (13.0-18.0); Mean Corp Hgb Conc. 34.5 g/dL (33.0-37.0); Mean Corpuscular Volume 92.7 fL (80.0-94.0); Mean Platelet Volume 8.7 fL (7.4-10.4); Nucleated Red Blood Cells % 0 % (-); Platelet Count 223 10^3/uL (130-400); Red Cell Dist. Width 12.6 % (11.5-14.5); White Blood Cell Count 8.7 10^3/uL (4.8-10.8)
[2024-12-19 08:55] LABS: APTT 111.6 Sec (23.4-35.0)
[2024-12-19] MEDS: ALDACTONE 25 MG PO (08:57)
[2024-12-19] MEDS: LASIX 20 MG PO (08:57)
[2024-12-19] MEDS: FARXIGA 5 MG PO (08:57)
[2024-12-19] MEDS: ENTRESTO 24 MG/26 MG 1 TAB PO ×2 (08:57→20:28)
[2024-12-19] MEDS: COREG 3.125 MG PO ×2 (08:57→20:27)
[2024-12-19 09:19] LABS: ALT (SGPT) 37 U/L (0-50); AST (SGOT) 30 U/L (17-59); Albumin 3.8 g/dl (3.5-5.0); Alkaline Phosphatase 102 U/L (38-126); Blood Urea Nitrogen 19 mg/dl (9-20); Calcium 8.8 mg/dl (8.4-10.2); Carbon Dioxide 23 mmol/L (22-30); Chloride 109 mmol/L (98-107); Estimated Creatinine Clearance > 125 ml/min; Glucose 111 mg/dl (70-99); Potassium 4.5 mmol/L (3.5-5.1); Sodium 137 mmol/L (135-145); Total Bilirubin 0.7 mg/dl (0.2-1.3); Total Protein 6.9 g/dl (6.3-8.2); eGFR > 60.00
--- NOTE | 2024-12-19 09:32 | W.PN.CARDCBS ---
Addendum entered and electronically signed by Jerrell Cifuentes MD 12/19/24 10:52:
I saw and examined the patient.
The Welder Fitter Apprentice's note was reviewed and I agree with the note.
Comment:
GEN: No distress, awake, Ox3
HEENT: supple, anicteric, mmm
LUNGS: CTA, no wheezes/rales
CV: Reg, S1/S2, 2/6 syst LSB, no gallop
ABD: soft, BS+, NT/ND
EXT: No edema
NEURO: Gross non-focal
SKIN: No rash
PLan:
Overall remains stable. Tentative plan is for operating room on Saturday. Continue IV antibiotics for multi valve endocarditis.
Blood pressure remains borderline. Continue Coreg, Entresto and Aldactone as blood pressure tolerates. Creatinine overall stable.
LVEF was improved by recent echo at 50%.
Appreciate neurosurgery input. Plan is for conservative therapy.
Original Note:
Today's Communication / Plan
-
Continue IV antibiotics
Continue GDMT
Continue IV heparin
Anticipated valve surgery 12/23/2024
Impression / Plan
-
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
Assessment:
Presentation to [facility] with back pain
Leukocytosis
Left pulmonary embolus started on anticoagulation at [facility]
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
Severe AI and mod to severe TR with echodensity of AV and LVOT by echo at [facility]
Cardiomyopathy, EF 37% by echo at [facility]
History of endocarditis x3 ~2017, treated with IV abx
Clot in setting of above requiring thrombectomy
History of IVDA (heroin, sober since 06/2023)
Multiple dental extractions over last several months
Tobacco use
Daily ETOH use (2-3 beers daily)
ECHO at [facility]: EF 37% with Severe AI and mod to severe TR with echodensity of AV and LVOT appearing adherent onto the ventricular side of the base of the anterior mitral valve leaflet
ECHO 12/17/24: EF 45-50%, possible basal inferior hypokinesis, stage 1 diastolic dysfunction, mobile echodensities at junction of anterior leaflet of mitral valve in LVOT, mod sized highly mobile echodensity of NCC, severe AR, small mobile echodensity
suspicious for endocarditis on tricuspid valve with moderate to severe TR, PAP 30 mmHg
[facility] 12/18/2024: EF 45 to 50%. Large highly mobile echodensity (1.5 cm x 0.6 cm) suspected to be vegetation near anterior leaflet of mitral valve. No mitral regurgitation. Also appears to have vegetation associated with aortic valve with leaflet
perforation at RCC and some involvement of the NCC associated with severe AI. Calcified ehodensity (0.9 cm x 0.3 cm) associated with the tricuspid valve is visualized. Suspect calcified vegetation. Severe tricuspid regurgitation.
Plan:
-s/p LAURIE 12/18/24 with EF 45 to 50%, large highly mobile echodensity of aortic valve appears to be associated with LVOT near anterior leaflet of mitral valve, no mitral valve regurgitation, another vegetation associated with aortic valve, leaflet
perforation at RCC and also some involvement of NCC, severe AR, calcified echodensity associated of tricuspid valve with severe TR
-coagulase negative Staphylococcus on 2 cultures 12/16/24. Continue empiric vancomycin per ID
-tentatively planned multivalve surgery 12/23/[address] Pugh
-in SR on my review of tele
-continue IV heparin for pulmonary embolism
-CUS with <50% stenosis B/L
-does not appear to be in acute CHF. will follow on po lasix 20mg daily
-EF 37% by echo at [facility], 45-50% by echo 12/17. Continue Coreg, Entresto, Aldactone, Farxiga.
-tobacco/ETOH cessation
-spine MRI with evidence of possible discitis/mild osteomyelitis with no abscess. Neurosurgery evaluation appreciated. They would not recommend surgical intervention at this time but continue treatment with IV antibiotics. Recommended
surveillance imaging studies MRI of lower spine with and without contrast in 6 weeks to reassess presumed osteodiscitis.
-d/w CT surgery, patient, nursing
PREADMIT DATA:
-Patient presented to [facility] with back pain and was found to have leukocytosis. Then by imaging noted to have left PE with evidence of RV dysfunction out of proportion to degree of pulmonary embolus burden. Underwent echocardiogram
which showed EF of 37% as well as severe AI and moderate to severe TR with echodensity of aortic valve as well as left ventricular outflow tract. Patient was then transferred to [facility] for CT surgical evaluation for endocarditis.
Progress Note - Sales Representative [employer]
Subjective
Date of Service: December 19, 2024
Patient seen and examined. Patient sitting up on edge of bed playing game on phone. Continues to have some mild left-sided chest discomfort with taking deep breath. Otherwise feels well.
Objective
Labs:
12/19/24 08:32
12/19/24 08:32
Labs
Hgb 13.1 g/dL (13.0-18.0) 12/19/24 08:32
Hct 38.0 % (39.0-52.0) L 12/19/24 08:32
Plt Count 223 10^3/uL (130-400) 12/19/24 08:32
PT 13.6 Sec (11.4-14.6) 12/17/24 02:34
INR 0.99 12/17/24 02:34
APTT 111.6 Sec (23.4-35.0) H 12/19/24 08:32
Sodium 137 mmol/L (135-145) 12/19/24 08:32
Potassium 4.5 mmol/L (3.5-5.1) 12/19/24 08:32
BUN 19 mg/dl (9-20) 12/19/24 08:32
Creatinine 0.8 mg/dL (0.7-1.3) 12/19/24 08:32
Glucose 111 mg/dl (70-99) H 12/19/24 08:32
Vital Signs and I&O:
Vital Signs
Temp Pulse Resp BP Pulse Ox
97.9 F 80 16 101/35 98
12/19/24 09:04 12/19/24 09:00 12/19/24 09:04 12/19/24 07:43 12/19/24 04:28
Vital Signs
Temp Pulse Resp BP Pulse Ox
97.9 F 80 16 101/35 98
12/19/24 09:04 12/19/24 09:00 12/19/24 09:04 12/19/24 07:43 12/19/24 04:28
Intake & Output
12/17/24 12/18/24 12/19/24 12/20/24
06:59 06:59 06:59 06:59
Intake Total 2010 535 / 535
Output Total 500 / 500
Balance -500 / -500 2010 535 / 535
Physical Exam
Physical Exam
GEN: No distress, awake, alert, oriented x3
HEENT: supple, anicteric, mmm, eomi
LUNGS: Mildly decreased at bases otherwise CTA B/L, no wheezes/rales
CV: Reg, S1/S2, 2/6 radiating murmur
ABD: soft, BS+, NT/ND
EXT: No cyanosis, clubbing, edema
NEURO: Gross non-focal
SKIN: Warm, pink, dry. No rash
[2024-12-19 10:53] LABS: Glycohemoglobin (HgbA1c) 4.9 % (4.0-5.6)
[2024-12-19] MEDS: ROXICODONE 5 MG PO ×2 (11:02→15:01)
[2024-12-19 11:03] VITALS: BP 111/46
--- NOTE | 2024-12-19 11:12 | W.PN.HOSP.TC ---
Today's Communication/Plan
-
Continue with heparin drip
Continue with antibiotic
Follow culture data
Assessment / Plan
Assessment / Plan
General: No Apparent Distress, Comfortable and Conversant
HEENT: NormoCephalic, Anicteric and Moist mucous membranes
Respiratory: Crackles (bibasilar); No Wheezes or Rales
Cardiac: S1/S2, Regular Rhythm and Murmur
GI: Soft, Non Tender and Non Distended
Genito-urinary: No costovertebral tender
Musculoskeletal: No Clubbing, No Cyanosis, No Edema and Other (thoracic and lumbar spine point tenderness to palpation)
Skin: Warm; No Dry or Rash
Neuro: Awake, Alert, Oriented and AO x 3
Psych: Calm
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
#Back pain likely secondary to osteoarthrosis suspected discitis osteomyelitis at L5-S1-
#History of endocarditis x 3
Continue with broad-spectrum antibiotics for now-vancomycin
MRSA screen negative
Blood cultures growing coag negative staph
Surveillance cultures ordered
Transesophageal echocardiogram showing endocarditis involving LVOT, AV with perforation and severe AR, and tricuspid valve. Tricuspid valve lesion is calcified�may be old but TR is severe.
CRP elevated.
MRI of the thoracic spine negative
MRI of the lumbar spine abnormal finding at L5-S1 level Osteoarthritis versus discitis/osteomyelitis-per neurosurgery no plan for surgery. Continue with medical management and treating with antibiotics.
Plan for surgery next week and agree with CT surgery that would like culture clearance
# Acute pulmonary embolism
Continue with heparin drip infusion for now until surgical plan is confirmed.
#Splenic infarcts/ pulmonary nodules likely septic emboli
Pain control. On anticoagulation.
# Chronic HFrEF
Continue with goal-directed medical therapy with Farxiga, Entresto, Aldactone, Lasix
Monitor creatinine closely
Currently looks euvolemic
# Alcohol abuse
Low likelihood of withdrawal
# History of IV drug abuse
Currently states he is drug-free
#Tobacco abuse
Currently on nicotine patch.
Counseled on cessation.
DVt ppx on hep drip
Full code
Anticipated Discharge: > 48 hours
Subjective/Interval History
-
Date of Service: December 19, 2024
Remains with intermittent back pain
Remains afebrile
Tolerating diet
Objective Data
-
Labs:
Laboratory Results
12/19/24 12/19/24 12/19/24
01:13 06:00 08:32
WBC 8.7
Hgb 13.1
Hct 38.0 L
Plt Count 223
APTT 124.6 H Cancelled 111.6 H
Sodium 137
Potassium 4.5
Chloride 109 H
Carbon Dioxide 23
BUN 19
Creatinine 0.8
Glucose 111 H
Calcium 8.8
Total Bilirubin 0.7
AST 30
ALT 37
Alkaline Phosphatase 102
12/19/24
15:00
WBC
Hgb
Hct
Plt Count
APTT Pending
Sodium
Potassium
Chloride
Carbon Dioxide
BUN
Creatinine
Glucose
Calcium
Total Bilirubin
AST
ALT
Alkaline Phosphatase
Vital Signs:
Vital Signs
Temp Pulse Resp BP Pulse Ox
97.9 F 80 16 101/35 98
12/19/24 09:04 12/19/24 09:00 12/19/24 09:04 12/19/24 07:43 12/19/24 04:28
I&O
12/18/24 12/19/24 12/20/24
06:59 06:59 06:59
Intake Total 2010 535 / 535
Balance 2010 535 / 535
--- NOTE | 2024-12-19 11:47 | W.PN.ID1 ---
Date of Service
Date of Service: December 19, 2024
Today's Communication
Continue antibiotics.
Assessment / Plan
Endocarditis
Bacteremia with coag negative staph
L5-S1 discitis
Elevated CRP
Hx prior endocarditis (x 3)
Recommendations:
Continue with empiric vancomycin.
Blood cultures at OSH are currently being worked up for full microbial identification and susceptibility.
Blood cultures here now positive. Awaiting full identification and susceptibility. Repeat blood cultures obtained today.
Monitor vancomycin levels to prevent nephrotoxicity.
Monitor white count and temperature curve.
Patient for tentative valve replacements next week.
����������������������������������������������������������
Chief Complaint
-: Bacteremia and Other (Endocarditis; lumbar discitis)
Subjective / Review of Systems
Review of Systems: No Fever and No Chills
Vital Signs / Physical Exam
Vital Signs
Vital Signs
Temp Pulse Resp BP Pulse Ox
97.9 F 80 16 101/35 96
12/19/24 09:04 12/19/24 09:00 12/19/24 09:04 12/19/24 07:43 12/19/24 11:28
Physical Exam
Constitutional: No Acute Distress, Comfortable and Non-toxic
Eyes: Sclera Anicteric
Cardiovascular: Regular Rate, S1/S2 and Murmur; Negative S3/S4
Pulmonary: Clear; Negative Wheezes, Rales or Rhonchi
Gastrointestinal: Soft and Non Distended
Extremities: Edema; Negative Cyanosis, Erythema, Splinter Hemorrhage or Janeway Lesions
Skin: Warm and Dry; Negative Rash or Jaundice
Neurological: Awake and Alert
Psychological: Calm
Objective Data
Lab Data
Lab Results
12/19/24 08:32
12/19/24 08:32
ESR 34 mm/hour (0-20) H 12/18/24 05:08
PT 13.6 Sec (11.4-14.6) 12/17/24 02:34
INR 0.99 12/17/24 02:34
APTT 111.6 Sec (23.4-35.0) H 12/19/24 08:32
Estimated Creat Clear > 125 ml/min 12/19/24 08:32
Total Bilirubin 0.7 mg/dl (0.2-1.3) 12/19/24 08:32
AST 30 U/L (17-59) 12/19/24 08:32
ALT 37 U/L (0-50) 12/19/24 08:32
Alkaline Phosphatase 102 U/L (38-126) 12/19/24 08:32
C-Reactive Protein 52.60 mg/L (0.0-10.00) H 12/17/24 02:34
Most recent labs reviewed.
Micro Results:
12/16/24 23:46 Blood Culture - Preliminary
Blood/Venous Coagulase neg. staphylococcus
Gram Stain - Final
12/16/24 22:52 Blood Culture - Preliminary
Blood/Venous Coagulase neg. staphylococcus
Gram Stain - Preliminary
12/19/24 08:32 Blood Culture - Pending
Blood/Venous
12/16/24 20:09 MRSA Screen - Final
Nose No Methicillin Resistant Staphylococcus aureus isolated.
12/14/20241734
Blood/Venous Blood Culture :
Coag negative staph
12/14/2024 1730
Blood/Venous Blood Culture :
Coag negative staph
Imaging:
12/18/2024 ECHO ([facility]): EF approximately 45%. Trileaflet aortic valve with a large highly mobile echodensity noted also concern for anterior leaflet mitral valve vegetation. Please see full dictation for additional detail
12/18/2024 MRI thoracic and lumbar spine: In the thoracic spine there is no evidence of discitis or osteomyelitis. No epidural abscess or focal disc protrusion. On the lumbar MRI there is disc space narrowing at L5-S1 which is suspicious for
discitis and mild osteomyelitis. No epidural collection or abscess is noted.
12/17/2024 CT chest/abdomen/pelvis: Possible aortic valve vegetation. 2 splenic hypodense wedge-shaped areas suspicious for splenic infarcts. Pulmonary nodules also noted suspicious for possible septic emboli. Please see full dictation for
additional detail.
ECHO at [facility]: EF 37% with Severe AI and mod to severe TR with echodensity of AV and LVOT appearing adherent onto the ventricular side of the base of the anterior mitral valve leaflet
[2024-12-19] MEDS: NEURONTIN 400 MG PO ×2 (15:01→22:27)
[2024-12-19 15:29] VITALS: BP 120/48
[2024-12-19 16:53] LABS: APTT 87.2 Sec (23.4-35.0)
[2024-12-19] MEDS: VANCOCIN 530 MG IV (17:48)
[2024-12-19 20:20] VITALS: BP 125/57
[2024-12-19 22:44] VITALS: BP 108/70
[2024-12-19 23:03] LABS: APTT 72.5 Sec (23.4-35.0)
[2024-12-19] MEDS: HEPARIN 3500 UNITS IV (23:25)
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
[2024-12-20] MEDS: DILAUDID 0.5 MG IV ×4 (02:30→21:29)
[2024-12-20 02:36] VITALS: BP 124/51
[2024-12-20] MEDS: ROXICODONE 5 MG PO ×2 (04:49→12:45)
[2024-12-20] MEDS: HEPARIN 25000 UNITS/250 ML IV ×2 (04:49→18:33)
[2024-12-20] MEDS: VANCOCIN 530 MG IV (05:07)
[2024-12-20 05:17] LABS: % Basophils 0.8 % (0-2); % Eosinophils 0.9 % (0-6); % Immature Granulocytes 0.6 % (0-0.5); % Monocytes 7.7 % (1.7-9.3); Absolute Basophils 0.1 10^3/uL (0-0.2); Absolute Eosinophils 0.1 10^3/uL (0-0.7); Absolute Immature Granulocytes 0.1 10^3/uL (0-0.05); Absolute Lymphocytes 1.9 10^3/uL (1.2-3.4); Absolute Monocytes 0.7 10^3/uL (0.1-0.6); Absolute Neutrophils 6.2 10^3/uL (1.4-6.5); Hematocrit 39.3 % (39.0-52.0); Hemoglobin 13.7 g/dL (13.0-18.0); Mean Corp Hgb Conc. 34.9 g/dL (33.0-37.0); Mean Corpuscular Hgb 32.3 pg (27.0-31.0); Mean Corpuscular Volume 92.7 fL (80.0-94.0); Mean Platelet Volume 8.5 fL (7.4-10.4); Nucleated Red Blood Cells % 0 % (-); Platelet Count 240 10^3/uL (130-400); Red Blood Cell Count 4.24 10^6/uL (4.70-6.10); Red Cell Dist. Width 12.4 % (11.5-14.5); White Blood Cell Count 8.9 10^3/uL (4.8-10.8)
[2024-12-20 05:42] LABS: APTT 159.6 Sec (23.4-35.0)
[2024-12-20 06:12] LABS: ALT (SGPT) 30 U/L (0-50); AST (SGOT) 30 U/L (17-59); Albumin 3.9 g/dl (3.5-5.0); Alkaline Phosphatase 91 U/L (38-126); Blood Urea Nitrogen 15 mg/dl (9-20); Calcium 9.1 mg/dl (8.4-10.2); Carbon Dioxide 22 mmol/L (22-30); Chloride 109 mmol/L (98-107); Estimated Creatinine Clearance > 125 ml/min; Glucose 109 mg/dl (70-99); Potassium 4.5 mmol/L (3.5-5.1); Sodium 139 mmol/L (135-145); Total Bilirubin 0.7 mg/dl (0.2-1.3); Total Protein 6.9 g/dl (6.3-8.2); eGFR > 60.00
[2024-12-20 06:59] VITALS: BP 109/43
--- NOTE | 2024-12-20 07:42 | PHA.VAN.FU ---
Vancomycin Assessment / Plan
- Assessment
Renal Function: Stable
WBC's are: WNL
In the past 24 hrs, patient has been: Afebrile
- Dosing Plan
Continue: Vanc 1500mg Q12H (adjusted 12/19)
- Monitoring Plan
Peak Level: 12/20 21:30
Trough Level: 12/21 05:30
Monitoring Comments: levels to be drawn after 3rd maintenance dose
- Follow Up
Pharmacy will continue to follow.
Vancomycin Follow UP
- -
Patient Age: 39
Patient Sex: Male
Vancomycin Day #: 8 ([facility] TRANSFER, UNCLEAR EXACT START DATE)
Indication: Endocarditis
Requesting Provider: Dr. Pineda
Pertinent Antimicrobial Allergies:
NKDA
Height / Weight:
Height 5 ft 10 in
Actual Weight 84.6 kg
Pertinent Past Medical History: Hx of IV JONA, Endocarditis
- Vital Signs / Lab Results
Temp Pulse Resp BP Pulse Ox
97.5 F 83 20 124/51 97
12/20/24 06:59 12/20/24 02:36 12/20/24 06:59 12/20/24 02:36 12/20/24 06:59
Lab Results - Hematology
12/18/24 12/19/24 12/20/24
05:08 08:32 05:04
WBC 9.3 8.7 8.9
Lab Results - Chemistry
12/18/24 12/19/24 12/20/24
05:08 08:32 05:03
BUN 19 19 15
Creatinine 0.8 0.8 0.8
Estimated Creat Clear > 125 > 125 > 125
Albumin 3.9 3.8 3.9
Microbiology Results
12/16/24 22:52 Blood Culture - Preliminary
Blood/Venous Coagulase neg. staphylococcus
Positive culture in progress
Gram Stain - Preliminary
12/16/24 23:46 Blood Culture - Preliminary
Blood/Venous Coagulase neg. staphylococcus
Gram Stain - Final
12/16/24 20:09 MRSA Screen - Final
Nose No Methicillin Resistant Staphylococcus aureus isolated.
Therapeutic Drug Monitoring
Vancomycin Peak 22.4 ug/ml (18-26) 12/18/24 12:45
Vancomycin Trough 16.0 ug/ml (5-20) 12/18/24 17:38
[2024-12-20] MEDS: LASIX 20 MG PO (08:26)
[2024-12-20] MEDS: COREG 3.125 MG PO ×2 (08:26→21:20)
[2024-12-20] MEDS: ENTRESTO 24 MG/26 MG 1 TAB PO (08:26)
[2024-12-20] MEDS: NEURONTIN 400 MG PO (08:28)
[2024-12-20] MEDS: ALDACTONE 25 MG PO (08:28)
[2024-12-20 08:44] VITALS: BMI 26.3
--- NOTE | 2024-12-20 10:33 | W.PN.ID1 ---
Date of Service
Date of Service: December 20, 2024
Today's Communication
Continue antibiotics. Transition to cefazolin.
Assessment / Plan
Endocarditis
Bacteremia with coag negative staph
L5-S1 discitis
Elevated CRP
Hx prior endocarditis (x 3)
Recommendations:
Blood cultures with Staph epidermidis on several bottles, which match isolates recovered at OSH.
Staph. epi. noted to be MSSE.
Transition to cefazolin 2 g IV every 8 hours
Monitor white count and temperature curve.
Patient for tentative valve replacements 12/23/2024.
����������������������������������������������������������
Chief Complaint
-: Bacteremia and Other (Endocarditis; lumbar discitis)
Subjective / Review of Systems
Patient seen and examined. Reports feels well except for ongoing discomfort in the low back, and the left thorax.
Review of Systems: No Fever and No Chills
Vital Signs / Physical Exam
Vital Signs
Vital Signs
Temp Pulse Resp BP Pulse Ox
97.5 F 83 20 124/51 97
12/20/24 06:59 12/20/24 02:36 12/20/24 06:59 12/20/24 02:36 12/20/24 08:00
Physical Exam
Constitutional: No Acute Distress, Comfortable and Non-toxic
Eyes: No Conjunctival Hemorrhage and Sclera Anicteric
Cardiovascular: Regular Rate, S1/S2 and Murmur; Negative S3/S4
Pulmonary: Clear and Non Labored; Negative Wheezes, Rales or Rhonchi
Gastrointestinal: Soft and Non Distended
Extremities: Edema; Negative Cyanosis, Erythema, Splinter Hemorrhage or Janeway Lesions
Skin: Warm and Dry; Negative Rash or Jaundice
Neurological: Awake and Alert
Psychological: Calm
Objective Data
Lab Data
Lab Results
12/20/24 05:04
12/20/24 05:03
ESR 34 mm/hour (0-20) H 12/18/24 05:08
PT 13.6 Sec (11.4-14.6) 12/17/24 02:34
INR 0.99 12/17/24 02:34
APTT 159.6 Sec (23.4-35.0) H* 12/20/24 05:03
Estimated Creat Clear > 125 ml/min 12/20/24 05:03
Total Bilirubin 0.7 mg/dl (0.2-1.3) 12/20/24 05:03
AST 30 U/L (17-59) 12/20/24 05:03
ALT 30 U/L (0-50) 12/20/24 05:03
Alkaline Phosphatase 91 U/L (38-126) 12/20/24 05:03
C-Reactive Protein 52.60 mg/L (0.0-10.00) H 12/17/24 02:34
Most recent labs reviewed.
Micro Results:
12/16/24 22:52 Blood Culture - Preliminary
Blood/Venous Staphylococcus epidermidis
Gram Stain - Preliminary
12/16/24 23:46 Blood Culture - Final
Blood/Venous Staphylococcus epidermidis
Gram Stain - Final
12/19/24 08:32 Blood Culture - Preliminary
Blood/Venous No Growth in 24 hours- Final report to follow
12/19/24 16:26 Blood Culture - Pending
Blood/Venous
12/16/24 20:09 MRSA Screen - Final
Nose No Methicillin Resistant Staphylococcus aureus isolated.
12/14/20241734
Blood/Venous Blood Culture :
Coag negative staph
12/14/20241729
Blood/Venous Blood Culture :
Coag negative staph
Blood Culture 12/20/24-1015
1. Staphylococcus epidermidis
M.I.C. RX
--------- ---
Amoxicillin/Potas. Clavulanate <=4/2 S
Ampicillin <=2 R
Clindamycin <=0.5 S
Gentamicin <=4 S
Erythromycin >4 R
Levofloxacin <=1 S
--> Oxacillin <=0.25 S
Tetracycline <=4 S
Trimethoprim/Sulfamethoxazole 2/38 S
Vancomycin 1 S
Imaging:
12/18/2024 ECHO ([facility]): EF approximately 45%. Trileaflet aortic valve with a large highly mobile echodensity noted also concern for anterior leaflet mitral valve vegetation. Please see full dictation for additional detail
12/18/2024 MRI thoracic and lumbar spine: In the thoracic spine there is no evidence of discitis or osteomyelitis. No epidural abscess or focal disc protrusion. On the lumbar MRI there is disc space narrowing at L5-S1 which is suspicious for
discitis and mild osteomyelitis. No epidural collection or abscess is noted.
12/17/2024 CT chest/abdomen/pelvis: Possible aortic valve vegetation. 2 splenic hypodense wedge-shaped areas suspicious for splenic infarcts. Pulmonary nodules also noted suspicious for possible septic emboli. Please see full dictation for
additional detail.
ECHO at [facility]: EF 37% with Severe AI and mod to severe TR with echodensity of AV and LVOT appearing adherent onto the ventricular side of the base of the anterior mitral valve leaflet
--- NOTE | 2024-12-20 10:52 | W.PN.HOSP.TC ---
Today's Communication/Plan
-
Continue with heparin drip
Continue with antibiotic-transition to cefazolin
Follow culture data
OR tentatively next week
Increase gabapentin to 600 3 times daily
Assessment / Plan
Assessment / Plan
General: No Apparent Distress, Comfortable and Conversant
HEENT: NormoCephalic, Anicteric and Moist mucous membranes
Respiratory: Crackles (bibasilar); No Wheezes or Rales
Cardiac: S1/S2, Regular Rhythm and Murmur
GI: Soft, Non Tender and Non Distended
Genito-urinary: No costovertebral tender
Musculoskeletal: No Clubbing, No Cyanosis, No Edema and Other (thoracic and lumbar spine point tenderness to palpation)
Skin: Warm; No Dry or Rash
Neuro: Awake, Alert, Oriented and AO x 3
Psych: Calm
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
#Back pain likely secondary to osteoarthrosis suspected discitis osteomyelitis at L5-S1-
#History of endocarditis x 3
Vancomycin discontinued on 12/20/2024 and started on cefazolin per ID.
MRSA screen negative
Blood cultures growing Staph epidermidis. Sensitivity noted.
Surveillance cultures in lab.
Transesophageal echocardiogram showing endocarditis involving LVOT, AV with perforation and severe AR, and tricuspid valve. Tricuspid valve lesion is calcified�may be old but TR is severe.
CRP elevated.
MRI of the thoracic spine negative
MRI of the lumbar spine abnormal finding at L5-S1 level Osteoarthritis versus discitis/osteomyelitis-per neurosurgery no plan for surgery. Continue with medical management and treating with antibiotics.
Plan for surgery next week and agree with CT surgery that would like culture clearance
# Acute pulmonary embolism
Continue with heparin drip infusion for now until surgical plan is confirmed.
#Splenic infarcts/ pulmonary nodules likely septic emboli
Pain control. On anticoagulation.
# Chronic HFrEF
Continue with goal-directed medical therapy with Farxiga, Entresto, Aldactone, Lasix
Monitor creatinine closely
Currently looks euvolemic. Blood pressure controlled.
# Alcohol abuse
Low likelihood of withdrawal
# History of IV drug abuse
Currently states he is drug-free
#Tobacco abuse
Currently on nicotine patch.
Counseled on cessation.
DVt ppx on hep drip
Full code
Discussed with ID
Anticipated Discharge: > 48 hours
Subjective/Interval History
-
Date of Service: December 20, 2024
Remains with back pain
Tolerating diet
Remains afebrile
Looks comfortable
Objective Data
-
Labs:
Laboratory Results
12/19/24 12/20/24 12/20/24
22:42 05:03 05:04
WBC 8.9
Hgb 13.7
Hct 39.3
Plt Count 240
APTT 72.5 H 159.6 H*
Sodium 139
Potassium 4.5
Chloride 109 H
Carbon Dioxide 22
BUN 15
Creatinine 0.8
Glucose 109 H
Calcium 9.1
Total Bilirubin 0.7
AST 30
ALT 30
Alkaline Phosphatase 91
12/20/24
12:45
WBC
Hgb
Hct
Plt Count
APTT Pending
Sodium
Potassium
Chloride
Carbon Dioxide
BUN
Creatinine
Glucose
Calcium
Total Bilirubin
AST
ALT
Alkaline Phosphatase
Vital Signs:
Vital Signs
Temp Pulse Resp BP Pulse Ox
97.5 F 83 20 124/51 97
12/20/24 06:59 12/20/24 02:36 12/20/24 06:59 12/20/24 02:36 12/20/24 08:00
I&O
12/19/24 12/20/24 12/21/24
06:59 06:59 06:59
Intake Total 1367 / 1367 1288 / 1288
Balance 1367 / 1367 1288 / 1288
Data Reviewed
-
Total Time Spent with Patient (in minutes): 55
--- NOTE | 2024-12-20 11:15 | W.PN.CARDCBS ---
Today's Communication / Plan
-
No new fevers. Coag negative staph endocarditis awaiting surgery on Saturday
Plans conservative therapy for discitis and continued IV antibiotics. Currently on cefazolin.
LVEF looked improved on repeat echo. Continue Coreg, Entresto, spironolactone, and Lasix. Blood pressure has been stable.
CT scan had no clear central pulmonary emboli. Will continue IV heparin for now. Will discuss with CT surgery regarding plan for long-term anticoagulation
CT scan did have some splenic infarcts.
Continue pain control.
Impression / Plan
-
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
Assessment:
Presentation to [facility] with back pain
Leukocytosis
Left pulmonary embolus started on anticoagulation at [facility]
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
Severe AI and mod to severe TR with echodensity of AV and LVOT by echo at [facility]
Cardiomyopathy, EF 37% by echo at [facility]
History of endocarditis x3 ~2017, treated with IV abx
Clot in setting of above requiring thrombectomy
History of IVDA (heroin, sober since 06/2023)
Multiple dental extractions over last several months
Tobacco use
Daily ETOH use (2-3 beers daily)
ECHO at [facility]: EF 37% with Severe AI and mod to severe TR with echodensity of AV and LVOT appearing adherent onto the ventricular side of the base of the anterior mitral valve leaflet
ECHO 12/17/24: EF 45-50%, possible basal inferior hypokinesis, stage 1 diastolic dysfunction, mobile echodensities at junction of anterior leaflet of mitral valve in LVOT, mod sized highly mobile echodensity of NCC, severe AR, small mobile echodensity
suspicious for endocarditis on tricuspid valve with moderate to severe TR, PAP 30 mmHg
[facility] 12/18/2024: EF 45 to 50%. Large highly mobile echodensity (1.5 cm x 0.6 cm) suspected to be vegetation near anterior leaflet of mitral valve. No mitral regurgitation. Also appears to have vegetation associated with aortic valve with leaflet
perforation at [facility] and some involvement of the NCC associated with severe AI. Calcified ehodensity (0.9 cm x 0.3 cm) associated with the tricuspid valve is visualized. Suspect calcified vegetation. Severe tricuspid regurgitation.
Plan:
-s/p [facility]IE 12/18/24 with EF 45 to 50%, large highly mobile echodensity of aortic valve appears to be associated with LVOT near anterior leaflet of mitral valve, no mitral valve regurgitation, another vegetation associated with aortic valve, leaflet
perforation at [facility] and also some involvement of NCC, severe AR, calcified echodensity associated of tricuspid valve with severe TR
-coagulase negative Staphylococcus on 2 cultures 12/16/24. Continue empiric vancomycin per ID. Repeat blood cultures are negative.
-tentatively planned multivalve surgery 12/23/[address] Pugh
-Remains in sinus rhythm.
-continue IV heparin for pulmonary embolism. Repeat CT scan here did not show large central pulmonary embolism. Will discuss with CT surgery regarding long plan for anticoagulation.
-CUS with <50% stenosis B/L
-does not appear to be in acute CHF. will follow on po lasix 20mg daily
-EF 37% by echo at [facility], 45-50% by echo 12/17. Continue Coreg, Entresto, Aldactone, Farxiga.
-tobacco/ETOH cessation
-spine MRI with evidence of possible discitis/mild osteomyelitis with no abscess. Neurosurgery evaluation appreciated. They would not recommend surgical intervention at this time but continue treatment with IV antibiotics. Recommended
surveillance imaging studies MRI of lower spine with and without contrast in 6 weeks to reassess presumed osteodiscitis.
-d/w , patient
PREADMIT DATA:
-Patient presented to [facility] with back pain and was found to have leukocytosis. Then by imaging noted to have left PE with evidence of RV dysfunction out of proportion to degree of pulmonary embolus burden. Underwent echocardiogram
which showed EF of 37% as well as severe AI and moderate to severe TR with echodensity of aortic valve as well as left ventricular outflow tract. Patient was then transferred to [facility] for CT surgical evaluation for endocarditis.
Progress Note - Wood Floor Refinisher
Subjective
Date of Service: December 20, 2024
Overall doing well. Still having some back pains and occasional left-sided chest pains with deep breaths. No fevers.
Objective
Labs:
12/20/24 05:04
12/20/24 05:03
Labs
Hgb 13.7 g/dL (13.0-18.0) 12/20/24 05:04
Hct 39.3 % (39.0-52.0) 12/20/24 05:04
Plt Count 240 10^3/uL (130-400) 12/20/24 05:04
PT 13.6 Sec (11.4-14.6) 12/17/24 02:34
INR 0.99 12/17/24 02:34
APTT 159.6 Sec (23.4-35.0) H* 12/20/24 05:03
Sodium 139 mmol/L (135-145) 12/20/24 05:03
Potassium 4.5 mmol/L (3.5-5.1) 12/20/24 05:03
BUN 15 mg/dl (9-20) 12/20/24 05:03
Creatinine 0.8 mg/dL (0.7-1.3) 12/20/24 05:03
Glucose 109 mg/dl (70-99) H 12/20/24 05:03
Vital Signs and I&O:
Vital Signs
Temp Pulse Resp BP Pulse Ox
97.5 F 83 20 124/51 97
12/20/24 06:59 12/20/24 02:36 12/20/24 06:59 12/20/24 02:36 12/20/24 08:00
Vital Signs
Temp Pulse Resp BP Pulse Ox
97.5 F 83 20 124/51 97
12/20/24 06:59 12/20/24 02:36 12/20/24 06:59 12/20/24 02:36 12/20/24 08:00
Intake & Output
12/18/24 12/19/24 12/20/24 12/21/24
06:59 06:59 06:59 06:59
Intake Total 2010 1367 / 1367 1288 / 1288
Balance 2010 1367 / 1367 1288 / 1288
Physical Exam
Physical Exam
GEN: No distress, awake, Ox3
HEENT: supple, anicteric, mmm
LUNGS: CTA, no wheezes/rales
CV: Reg, S1/S2, 2/6 syst LSB, no gallop
ABD: soft, BS+, NT/ND
EXT: No edema
NEURO: Gross non-focal
SKIN: No rash
[2024-12-20] MEDS: ANCEF 10 IV ×2 (11:33→21:19)
[2024-12-20] MEDS: FLUSH (NSS) 1 FLUSH IV (11:34)
[2024-12-20 12:09] VITALS: BP 128/54
[2024-12-20 13:24] LABS: APTT 96.5 Sec (23.4-35.0)
[2024-12-20 16:12] VITALS: BP 114/48
[2024-12-20] MEDS: NEURONTIN 600 MG PO ×2 (16:25→21:20)
--- NOTE | 2024-12-20 16:57 | PTCARENOTE ---
Pt received this am with continued c/o of left sided chest pain requesting Dilaudid alternating with roxicodone with partial relief. Heparin infusing as ordered. OOB ad karen in the room. No other c/o offered.
[2024-12-20 20:07] LABS: APTT 74.4 Sec (23.4-35.0)
[2024-12-20 20:15] VITALS: BP 117/58
[2024-12-20 22:17] VITALS: BP 128/56
[2024-12-21 03:42] VITALS: BP 121/42
[2024-12-21] MEDS: ANCEF 10 IV ×3 (04:04→19:51)
[2024-12-21] MEDS: DILAUDID 0.5 MG IV ×5 (04:05→21:15)
[2024-12-21 04:10] VITALS: BMI 26.4
[2024-12-21 04:21] LABS: % Basophils 0.5 % (0-2); % Eosinophils 0.7 % (0-6); % Immature Granulocytes 0.6 % (0-0.5); % Lymphocytes 23.9 % (20.5-51.1); % Neutrophils 66.3 % (42.2-75.2); Absolute Eosinophils 0.1 10^3/uL (0-0.7); Absolute Immature Granulocytes 0.1 10^3/uL (0-0.05); Absolute Monocytes 0.7 10^3/uL (0.1-0.6); Absolute Neutrophils 5.4 10^3/uL (1.4-6.5); Hematocrit 40.5 % (39.0-52.0); Hemoglobin 14.1 g/dL (13.0-18.0); Mean Corp Hgb Conc. 34.8 g/dL (33.0-37.0); Mean Corpuscular Hgb 32.6 pg (27.0-31.0); Mean Corpuscular Volume 93.5 fL (80.0-94.0); Mean Platelet Volume 8.8 fL (7.4-10.4); Nucleated Red Blood Cells % 0 % (-); Platelet Count 238 10^3/uL (130-400); Red Blood Cell Count 4.33 10^6/uL (4.70-6.10); Red Cell Dist. Width 12.3 % (11.5-14.5); White Blood Cell Count 8.2 10^3/uL (4.8-10.8)
[2024-12-21 04:25] LABS: APTT 88.7 Sec (23.4-35.0)
[2024-12-21 04:45] LABS: ALT (SGPT) 28 U/L (0-50); AST (SGOT) 25 U/L (17-59); Albumin 4.1 g/dl (3.5-5.0); Alkaline Phosphatase 103 U/L (38-126); Blood Urea Nitrogen 19 mg/dl (9-20); Calcium 9.4 mg/dl (8.4-10.2); Carbon Dioxide 25 mmol/L (22-30); Chloride 106 mmol/L (98-107); Estimated Creatinine Clearance 102 ml/min; Glucose 103 mg/dl (70-99); Potassium 4.6 mmol/L (3.5-5.1); Sodium 139 mmol/L (135-145); Total Bilirubin 0.8 mg/dl (0.2-1.3); Total Protein 7.2 g/dl (6.3-8.2); eGFR > 60.00
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
--- NOTE | 2024-12-21 06:14 | PTCARENOTE ---
Pt NSR on monitor. c/o left side pain 01/21. PRN Dilaudid given. No SOB noted. Pt independent in the room
[2024-12-21] MEDS: MYLICON 80 MG PO (06:34)
[2024-12-21] MEDS: HEPARIN 25000 UNITS/250 ML IV ×2 (06:34→18:57)
[2024-12-21 07:46] VITALS: BP 121/40
[2024-12-21] MEDS: COREG 3.125 MG PO ×2 (08:47→19:51)
[2024-12-21] MEDS: LASIX 20 MG PO (08:47)
[2024-12-21] MEDS: ALDACTONE 25 MG PO (08:47)
[2024-12-21] MEDS: NEURONTIN 600 MG PO ×3 (08:47→21:15)
--- NOTE | 2024-12-21 09:05 | W.PN.HOSP.TC ---
Today's Communication/Plan
-
Obtain a chest x-ray
Continue with Lasix and spironolactone. Holding Farxiga and Entresto presurgery.
Assessment / Plan
Assessment / Plan
#Infective endocarditis involving the aortic valve.
#Staph epidermidis bacteremia
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
#Back pain likely secondary to osteoarthrosis suspected discitis osteomyelitis at L5-S1-
#History of endocarditis x 3
Vancomycin discontinued on 12/20/2024 and started on cefazolin per ID. Continue with antibiotics per ID
MRSA screen negative
Blood cultures growing Staph epidermidis. Sensitivity noted.
Surveillance cultures so far negative
Transesophageal echocardiogram showing endocarditis involving LVOT, AV with perforation and severe AR, and tricuspid valve. Tricuspid valve lesion is calcified�may be old but TR is severe.
CRP elevated.
MRI of the thoracic spine negative
MRI of the lumbar spine abnormal finding at L5-S1 level Osteoarthritis versus discitis/osteomyelitis-per neurosurgery no plan for surgery. Continue with medical management and treating with antibiotics.
CT surgery awaiting clearance of blood cultures and optimization of medical condition prior to planned AVR/TVR +/- LENCHO clip by Dr. Pugh on Saturday, 12/23
# Acute pulmonary embolism in the left lung-noted at [facility].
CT angiogram of the chest on this admission shows pulmonary nodule and raises concern for septic emboli.
Continue with heparin drip infusion for now until surgical plan is confirmed.
#Splenic infarcts/ pulmonary nodules likely septic emboli
Pain control. On anticoagulation.
# Chronic HFrEF
Continue with goal-directed medical therapy with Aldactone, Lasix. Holding Entresto and Farxiga pre-CT surgery
Monitor creatinine closely
Blood pressure controlled.
Repeat chest x-ray to evaluate for pleural effusion
# Alcohol abuse
No signs and symptoms of withdrawal
# History of IV drug abuse
Currently states he is drug-free
#Tobacco abuse
Currently on nicotine patch.
Counseled on cessation.
DVt ppx on hep drip
Full code
Discussed with ID
Anticipated Discharge: > 48 hours
Subjective/Interval History
-
Date of Service: December 21, 2024
Complaints of shortness of breath which has been better since admission to the hospital. Not hypoxic. He also has associated left-sided pleuritic chest pain. Again the pleuritic chest pain is present since hospitalization. He does have left
shoulder discomfort along with the pleuritic chest pain. No radiation to the left arm.
No cough. No fever chills currently. No nausea vomiting.
Persist to have low back pain without radiculopathy.
Objective Data
-
Labs:
Laboratory Results
12/21/24
03:50
WBC 8.2
Hgb 14.1
Hct 40.5
Plt Count 238
APTT 88.7 H
Sodium 139
Potassium 4.6
Chloride 106
Carbon Dioxide 25
BUN 19
Creatinine 1.0
Glucose 103 H
Calcium 9.4
Total Bilirubin 0.8
AST 25
ALT 28
Alkaline Phosphatase 103
Vital Signs:
Vital Signs
Temp Pulse Resp BP Pulse Ox
97.7 F 79 20 121/40 97
12/21/24 07:46 12/21/24 08:00 12/21/24 07:46 12/21/24 07:46 12/21/24 07:46
I&O
12/20/24 12/21/24 12/22/24
06:59 06:59 06:59
Intake Total 1288 / 1288 763 / 763
Balance 1288 / 1288 763 / 763
Review of Systems
-
Constitutional: Denies Fever or Chills
EENT: Denies Sore Throat
Abdomen/GI: Denies Abdominal Pain, Nausea or Vomiting
Neuro: Denies Dizzy
Physical Exam
-
HEENT: Moist Mucous Membranes
Respiratory: Decreased Breath Sounds (Bilateral bases); Negative Wheezes or Rales
Cardiac: Regular Rhythm, S1/S2 and Murmur
GI: Soft
Musculoskeletal: No Edema
Neuro: AO x 3
Data Reviewed
-
Labs: Labs Reviewed by me
[2024-12-21 11:58] VITALS: BP 105/38
--- NOTE | 2024-12-21 12:58 | W.PN.CARDCBS ---
Today's Communication / Plan
-
Optimize medical therapy with plan for AVR/TVR +/- LENCHO clip by Dr. Pugh on Saturday, 12/23
Impression / Plan
-
Primary Iron Launder Operator: ATC
Assessment:
Presentation to [facility] with back pain
Leukocytosis
Left pulmonary embolus started on anticoagulation at [facility]
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
Severe AI and mod to severe TR with echodensity of AV and LVOT by echo at [facility]
Cardiomyopathy, EF 37% by echo at [facility]
History of endocarditis x3 ~2017, treated with IV abx
Clot in setting of above requiring thrombectomy
History of IVDA (heroin, sober since 06/2023)
Multiple dental extractions over last several months
Tobacco use
Daily ETOH use (2-3 beers daily)
ECHO at [facility]: EF 37% with Severe AI and mod to severe TR with echodensity of AV and LVOT appearing adherent onto the ventricular side of the base of the anterior mitral valve leaflet
ECHO 12/17/24: EF 45-50%, possible basal inferior hypokinesis, stage 1 diastolic dysfunction, mobile echodensities at junction of anterior leaflet of mitral valve in LVOT, mod sized highly mobile echodensity of NCC, severe AR, small mobile echodensity
suspicious for endocarditis on tricuspid valve with moderate to severe TR, PAP 30 mmHg
LAURIE 12/18/2024: EF 45 to 50%. Large highly mobile echodensity (1.5 cm x 0.6 cm) suspected to be vegetation near anterior leaflet of mitral valve. No mitral regurgitation. Also appears to have vegetation associated with aortic valve with leaflet
perforation at RCC and some involvement of the NCC associated with severe AI. Calcified ehodensity (0.9 cm x 0.3 cm) associated with the tricuspid valve is visualized. Suspect calcified vegetation. Severe tricuspid regurgitation.
Plan:
39-year-old gentleman with history of prior IV drug abuse, sober since June 2023 presents with left-sided pulmonary embolism and MSSE bacteremia s/p LAURIE 12/18/24 with EF 45 to 50%, large highly mobile echodensity of aortic valve appears to be
associated with LVOT near anterior leaflet of mitral valve, no mitral valve regurgitation, another vegetation associated with aortic valve, leaflet perforation at RCC and also some involvement of NCC, severe AR, calcified echodensity associated of
tricuspid valve with severe TR
-Remains hemodynamically stable with several days of left shoulder pain worse with deep inspiration suggesting pleuritic etiology in the setting of left sided pulmonary embolism. Agree with primary service to order a chest x-ray, pending.
-Continue IV heparin for pulmonary embolism
-Continue IV antibiotics; appreciate ID input
-Patient has a history of cardiomyopathy who appears euvolemic. Entresto/Farxiga held in anticipation of surgery on 12/23/2024
-Carotid ultrasound with less than 50% stenosis bilaterally
-Will continue carvedilol and Aldactone
-spine MRI with evidence of possible discitis/mild osteomyelitis with no abscess. Neurosurgery evaluation appreciated. They would not recommend surgical intervention at this time but continue treatment with IV antibiotics. Recommended
surveillance imaging studies MRI of lower spine with and without contrast in 6 weeks to reassess presumed osteodiscitis.
-tentatively planned multivalve surgery 12/23/[address] Pugh
-tobacco/ETOH cessation
PREADMIT DATA:
-Patient presented to [facility] with back pain and was found to have leukocytosis. Then by imaging noted to have left PE with evidence of RV dysfunction out of proportion to degree of pulmonary embolus burden. Underwent echocardiogram
which showed EF of 37% as well as severe AI and moderate to severe TR with echodensity of aortic valve as well as left ventricular outflow tract. Patient was then transferred to [facility] for CT surgical evaluation for endocarditis.
Progress Note - Iron Launder Operator
Subjective
Date of Service: December 21, 2024
Patient seen and examined. Complaining of left-sided shoulder pain with deep inspiration. No chest pain. No fevers. No shortness of breath. No edema.
Objective
Labs:
12/21/24 03:50
12/21/24 03:50
Labs
Hgb 14.1 g/dL (13.0-18.0) 12/21/24 03:50
Hct 40.5 % (39.0-52.0) 12/21/24 03:50
Plt Count 238 10^3/uL (130-400) 12/21/24 03:50
PT 13.6 Sec (11.4-14.6) 12/17/24 02:34
INR 0.99 12/17/24 02:34
APTT 88.7 Sec (23.4-35.0) H 12/21/24 03:50
Sodium 139 mmol/L (135-145) 12/21/24 03:50
Potassium 4.6 mmol/L (3.5-5.1) 12/21/24 03:50
BUN 19 mg/dl (9-20) 12/21/24 03:50
Creatinine 1.0 mg/dL (0.7-1.3) 12/21/24 03:50
Glucose 103 mg/dl (70-99) H 12/21/24 03:50
Vital Signs and I&O:
Vital Signs
Temp Pulse Resp BP Pulse Ox
98 F 80 18 121/40 96
12/21/24 11:56 12/21/24 11:56 12/21/24 11:56 12/21/24 07:46 12/21/24 11:56
Vital Signs
Temp Pulse Resp BP Pulse Ox
98 F 80 18 121/40 96
12/21/24 11:56 12/21/24 11:56 12/21/24 11:56 12/21/24 07:46 12/21/24 11:56
Intake & Output
12/19/24 12/20/24 12/21/24 12/22/24
06:59 06:59 06:59 06:59
Intake Total 1367 / 1367 1288 / 1288 763 / 763 400 / 400
Balance 1367 / 1367 1288 / 1288 763 / 763 400 / 400
Physical Exam
Physical Exam
GEN: No distress, awake, Ox3
HEENT: supple, anicteric, mmm
LUNGS: CTA, no wheezes/rales
CV: Reg, S1/S2, 2/6 syst LSB, no gallop
ABD: soft, BS+, NT/ND
EXT: No edema
NEURO: Gross non-focal
SKIN: No rash
--- NOTE | 2024-12-21 13:41 | CM ---
Addendum entered by Enid Fontana RN 12/21/24 14:25:
Voicemail left for Hi. REJI to followup
Original Note:
Chart reviewed. Patient is independent of ADLS, lives in a Boarding Home, 3 STH, 2 full flight of stairs to get to his bedroom/bathroom, 0 TAI, 0 DME. Reviewed preoperative and postoperative instructions, along with showering guidelines. Patient
already had a Cardiac Surgery Book at bedside. Patient has a history of IV drug abuse. Reached out to Dr Contreras to see if patient can go back to [facility] on IV antibiotics, if he is able to CM to follow up with Hi, manager security and safety at [facility]
Home, to see if he is allowed to return there with IV antibiotics. Hi # [phone]. CM to follow
[2024-12-21 15:16] VITALS: BP 125/53
--- NOTE | 2024-12-21 16:11 | W.PN.ID1 ---
Date of Service
Date of Service: December 21, 2024
Today's Communication
Continue antibiotics.
Assessment / Plan
Endocarditis
Bacteremia with coag negative staph
L5-S1 discitis
Elevated CRP
Hx prior endocarditis (x 3)
Recommendations:
Blood cultures with Staph epidermidis on several bottles, which match isolates recovered at OSH.
Staph. epi. noted to be MSSE.
Transition to cefazolin 2 g IV every 8 hours
Monitor white count and temperature curve.
Patient for tentative valve replacements 12/23/2024.
����������������������������������������������������������
Chief Complaint
-: Bacteremia and Other (Endocarditis; lumbar discitis)
Subjective / Review of Systems
Review of Systems: No Fever and No Chills
Vital Signs / Physical Exam
Vital Signs
Vital Signs
Temp Pulse Resp BP Pulse Ox
98 F 90 20 125/53 100
12/21/24 15:14 12/21/24 15:16 12/21/24 15:14 12/21/24 15:16 12/21/24 15:14
Physical Exam
Constitutional: No Acute Distress, Comfortable and Non-toxic
Eyes: No Conjunctival Hemorrhage and Sclera Anicteric
Cardiovascular: Regular Rate, S1/S2 and Murmur; Negative S3/S4
Pulmonary: Clear and Non Labored; Negative Wheezes, Rales or Rhonchi
Gastrointestinal: Soft and Non Distended
Extremities: Edema; Negative Cyanosis, Erythema, Splinter Hemorrhage or Janeway Lesions
Skin: Warm and Dry; Negative Rash or Jaundice
Neurological: Awake and Alert
Psychological: Calm
Objective Data
Lab Data
Lab Results
12/21/24 03:50
12/21/24 03:50
ESR 34 mm/hour (0-20) H 12/18/24 05:08
PT 13.6 Sec (11.4-14.6) 12/17/24 02:34
INR 0.99 12/17/24 02:34
APTT 88.7 Sec (23.4-35.0) H 12/21/24 03:50
Estimated Creat Clear 102 ml/min 12/21/24 03:50
Total Bilirubin 0.8 mg/dl (0.2-1.3) 12/21/24 03:50
AST 25 U/L (17-59) 12/21/24 03:50
ALT 28 U/L (0-50) 12/21/24 03:50
Alkaline Phosphatase 103 U/L (38-126) 12/21/24 03:50
C-Reactive Protein 52.60 mg/L (0.0-10.00) H 12/17/24 02:34
Most recent labs reviewed.
Micro Results:
12/19/24 08:32 Blood Culture - Preliminary
Blood/Venous Positive culture in progress
Gram Stain - Preliminary
12/16/24 22:52 Blood Culture - Preliminary
Blood/Venous Staphylococcus epidermidis
Gram Stain - Preliminary
12/19/24 16:26 Blood Culture - Preliminary
Blood/Venous No Growth in 24 hours- Final report to follow
12/16/24 23:46 Blood Culture - Final
Blood/Venous Staphylococcus epidermidis
Gram Stain - Final
12/16/24 20:09 MRSA Screen - Final
Nose No Methicillin Resistant Staphylococcus aureus isolated.
12/14/20241734
Blood/Venous Blood Culture :
Coag negative staph
12/14/20241729
Blood/Venous Blood Culture :
Coag negative staph
Blood Culture 12/20/24-5
1. Staphylococcus epidermidis
M.I.C. RX
--------- ---
Amoxicillin/Potas. Clavulanate <=4/2 S
Ampicillin <=2 R
Clindamycin <=0.5 S
Gentamicin <=4 S
Erythromycin >4 R
Levofloxacin <=1 S
--> Oxacillin <=0.25 S
Tetracycline <=4 S
Trimethoprim/Sulfamethoxazole 2/38 S
Vancomycin 1 S
Imaging:
12/18/2024 ECHO (LAURIE): EF approximately 45%. Trileaflet aortic valve with a large highly mobile echodensity noted also concern for anterior leaflet mitral valve vegetation. Please see full dictation for additional detail
12/18/2024 MRI thoracic and lumbar spine: In the thoracic spine there is no evidence of discitis or osteomyelitis. No epidural abscess or focal disc protrusion. On the lumbar MRI there is disc space narrowing at L5-S1 which is suspicious for
discitis and mild osteomyelitis. No epidural collection or abscess is noted.
12/17/2024 CT chest/abdomen/pelvis: Possible aortic valve vegetation. 2 splenic hypodense wedge-shaped areas suspicious for splenic infarcts. Pulmonary nodules also noted suspicious for possible septic emboli. Please see full dictation for
additional detail.
ECHO at [facility]: EF 37% with Severe AI and mod to severe TR with echodensity of AV and LVOT appearing adherent onto the ventricular side of the base of the anterior mitral valve leaflet
[2024-12-21 18:39] VITALS: BP 130/49
[2024-12-21 21:51] VITALS: BP 124/51
[2024-12-22] VITALS (7 sets, daily range): BP systolic 114–134; BP diastolic 46–59; BMI 26.4
[2024-12-22] MEDS: DILAUDID 0.5 MG IV ×5 (01:31→21:42)
[2024-12-22] MEDS: ANCEF 10 IV ×3 (04:06→19:44)
[2024-12-22 04:39] LABS: Blood Urea Nitrogen 23 mg/dl (9-20); Calcium 9.9 mg/dl (8.4-10.2); Carbon Dioxide 25 mmol/L (22-30); Chloride 105 mmol/L (98-107); Estimated Creatinine Clearance 114 ml/min; Glucose 103 mg/dl (70-99); Potassium 4.7 mmol/L (3.5-5.1); Sodium 138 mmol/L (135-145); eGFR > 60.00
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
--- NOTE | 2024-12-22 05:38 | PTCARENOTE ---
pt NSR on monitor, VSS, c/o left side pain, PRN Dilaudid given. Heparin gtt per protocol.
[2024-12-22] MEDS: HEPARIN 25000 UNITS/250 ML IV ×2 (06:26→17:46)
[2024-12-22] MEDS: ALDACTONE 25 MG PO (08:35)
[2024-12-22] MEDS: NEURONTIN 600 MG PO ×3 (08:35→21:42)
[2024-12-22] MEDS: COREG 3.125 MG PO ×2 (08:35→19:43)
[2024-12-22] MEDS: LASIX 20 MG PO (08:35)
--- NOTE | 2024-12-22 09:45 | W.PN.HOSP.TC ---
Today's Communication/Plan
-
Continue with IV cefazolin, IV heparin.
OR tomorrow
Assessment / Plan
Assessment / Plan
#Infective endocarditis involving the aortic valve.
#Staph epidermidis bacteremia-persistent positivity blood cultures noted
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
#Back pain likely secondary to osteoarthrosis suspected discitis osteomyelitis at L5-S1-
#History of endocarditis x 3
Vancomycin discontinued on 12/20/2024 and started on cefazolin per ID. Continue with antibiotics per ID
MRSA screen negative
Blood cultures growing Staph epidermidis. Sensitivity noted
Surveillance cultures positive
Transesophageal echocardiogram showing endocarditis involving LVOT, AV with perforation and severe AR, and tricuspid valve. Tricuspid valve lesion is calcified�may be old but TR is severe
CRP elevated
MRI of the thoracic spine negative
MRI of the lumbar spine abnormal finding at L5-S1 level Osteoarthritis versus discitis/osteomyelitis-per neurosurgery no plan for surgery. Continue with medical management and treating with antibiotics.
CT surgery planned AVR/TVR +/- LENCHO clip by Dr. Pugh on Saturday, 12/23.
Possibly surgical treatment will help sterilize the bloodstream.
# Acute pulmonary embolism in the left lung-noted at [facility].
CT angiogram of the chest on this admission shows pulmonary nodule and raises concern for septic emboli.
Continue with heparin drip infusion for now until surgical plan is confirmed.
#Splenic infarcts/ pulmonary nodules likely septic emboli
Pain control. On anticoagulation.
# Chronic HFrEF
Continue with goal-directed medical therapy with Aldactone, Lasix. Holding Entresto and Farxiga pre-CT surgery
Monitor creatinine closely
Blood pressure controlled.
chest x-ray 12/21 without pleural effusions
# Alcohol abuse
No signs and symptoms of withdrawal
# History of IV drug abuse
Currently states he is drug-free
#Tobacco abuse
Currently on nicotine patch.
Counseled on cessation.
DVt ppx on hep drip
Full code
Anticipated Discharge: > 48 hours
Subjective/Interval History
-
Date of Service: December 22, 2024
Feels okay today. Finishes breakfast. Denies any nausea or vomiting.
Denies any shortness of breath at rest.
Objective Data
-
Labs:
Laboratory Results
12/22/24
04:01
APTT 96.0 H
Sodium 138
Potassium 4.7
Chloride 105
Carbon Dioxide 25
BUN 23 H
Creatinine 0.9
Glucose 103 H
Calcium 9.9
Vital Signs:
Vital Signs
Temp Pulse Resp BP Pulse Ox
97.9 F 71 18 114/53 97
12/22/24 07:15 12/22/24 07:21 12/22/24 07:15 12/22/24 07:21 12/22/24 07:15
I&O
12/21/24 12/22/24 12/23/24
06:59 06:59 06:59
Intake Total 763 / 763 1443 / 1443
Balance 763 / 763 1443 / 1443
Review of Systems
-
Constitutional: Denies Fever
Neuro: Denies Dizzy
Physical Exam
-
General: No Apparent Distress
HEENT: Moist Mucous Membranes
Respiratory: Clear to Auscultation (Today, able to take deep breaths)
Cardiac: Regular Rhythm and S1/S2
GI: Soft
Neuro: AO x 3
Psych: Calm
Data Reviewed
-
Diagnostic Radiology: Report Reviewed by me (Chest x-ray)
Labs: Labs Reviewed by me
--- NOTE | 2024-12-22 10:35 | CM ---
Chart reviewed. Patient is going for AVR/TVR tomorrow. Patient lives [facility], patient's room is on the 3rd floor, 2 full flight of stairs, 0 DME. Patient has IVDA history. I spoke to Hi, the wellness program manager at the [facility],
and he said it is not a recovery house, patient will be able to come back there on IV antibiotics. CM to talk to Risk to assess if patient will be able to return to the [facility] on IV antibiotics.
--- NOTE | 2024-12-22 12:49 | W.PN.CARDCBS ---
Addendum entered and electronically signed by Alberto Escudero MD 12/22/24 13:16:
I saw and examined the patient.
The Rn Placement's note was reviewed and I agree with the note.
Comment: Briefly, 39-year-old man past medical history of endocarditis complicated by severe aortic regurgitation and severe tricuspid regurgitation with resultant cardiomyopathy
He was referred to [place] for CT surgery evaluation to address his valvular pathology
Resting comfortably this morning the time of my evaluation
Appears euvolemic on exam and is not reporting any symptoms of decompensated heart failure
Would continue current oral Lasix and Aldactone dosing
Entresto and Farxiga on hold for OR
We will follow along with you
Original Note:
Today's Communication / Plan
-
for AVR/TVR/LENCHO clip in AM
continue IV heparin, IV abx
will follow postoperatively
Impression / Plan
-
Primary Data Management Consultant: ATC
Assessment:
Presentation to [facility] with back pain
Leukocytosis
Left pulmonary embolus started on anticoagulation at [facility]
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
Severe AI and mod to severe TR with echodensity of AV and LVOT by echo at [facility]
Cardiomyopathy, EF 37% by echo at [facility]
History of endocarditis x3 ~2017, treated with IV abx
Clot in setting of above requiring thrombectomy
History of IVDA (heroin, sober since 06/2023)
Multiple dental extractions over last several months
Tobacco use
Daily ETOH use (2-3 beers daily)
ECHO at [facility]: EF 37% with Severe AI and mod to severe TR with echodensity of AV and LVOT appearing adherent onto the ventricular side of the base of the anterior mitral valve leaflet
ECHO 12/17/24: EF 45-50%, possible basal inferior hypokinesis, stage 1 diastolic dysfunction, mobile echodensities at junction of anterior leaflet of mitral valve in LVOT, mod sized highly mobile echodensity of NCC, severe AR, small mobile echodensity
suspicious for endocarditis on tricuspid valve with moderate to severe TR, PAP 30 mmHg
LAURIE 12/18/2024: EF 45 to 50%. Large highly mobile echodensity (1.5 cm x 0.6 cm) suspected to be vegetation near anterior leaflet of mitral valve. No mitral regurgitation. Also appears to have vegetation associated with aortic valve with leaflet
perforation at RCC and some involvement of the NCC associated with severe AI. Calcified ehodensity (0.9 cm x 0.3 cm) associated with the tricuspid valve is visualized. Suspect calcified vegetation. Severe tricuspid regurgitation.
Plan:
39-year-old gentleman with history of prior IV drug abuse, sober since June 2023 presents with left-sided pulmonary embolism and MSSE bacteremia s/p LAURIE 12/18/24 with EF 45 to 50%, large highly mobile echodensity of aortic valve appears to be
associated with LVOT near anterior leaflet of mitral valve, no mitral valve regurgitation, another vegetation associated with aortic valve, leaflet perforation at RCC and also some involvement of NCC, severe AR, calcified echodensity associated of
tricuspid valve with severe TR
-plan for AVR/TVR/LENCHO clip 12/23/24
-continue IV heparin for PE
-continue IV abx. appreciate ID
-in SR on review of tele
-Patient has a history of cardiomyopathy. Entresto/Farxiga held in anticipation of surgery on 12/23/2024. continue coreg, aldactone
-spine MRI with evidence of possible discitis/mild osteomyelitis with no abscess. Neurosurgery evaluation appreciated. They would not recommend surgical intervention at this time but continue treatment with IV antibiotics. Recommended
surveillance imaging studies MRI of lower spine with and without contrast in 6 weeks to reassess presumed osteodiscitis.
-tobacco/ETOH cessation
-d/w nursing
PREADMIT DATA:
-Patient presented to [facility] with back pain and was found to have leukocytosis. Then by imaging noted to have left PE with evidence of RV dysfunction out of proportion to degree of pulmonary embolus burden. Underwent echocardiogram
which showed EF of 37% as well as severe AI and moderate to severe TR with echodensity of aortic valve as well as left ventricular outflow tract. Patient was then transferred to [facility] for CT surgical evaluation for endocarditis.
Progress Note - Data Management Consultant
Subjective
Date of Service: December 22, 2024
remains with pleuritic chest discomfort. back pain improving
Objective
Labs:
12/21/24 03:50
12/22/24 04:01
Labs
Hgb 14.1 g/dL (13.0-18.0) 12/21/24 03:50
Hct 40.5 % (39.0-52.0) 12/21/24 03:50
Plt Count 238 10^3/uL (130-400) 12/21/24 03:50
PT 13.6 Sec (11.4-14.6) 12/17/24 02:34
INR 0.99 12/17/24 02:34
APTT 96.0 Sec (23.4-35.0) H 12/22/24 04:01
Sodium 138 mmol/L (135-145) 12/22/24 04:01
Potassium 4.7 mmol/L (3.5-5.1) 12/22/24 04:01
BUN 23 mg/dl (9-20) H 12/22/24 04:01
Creatinine 0.9 mg/dL (0.7-1.3) 12/22/24 04:01
Glucose 103 mg/dl (70-99) H 12/22/24 04:01
Vital Signs and I&O:
Vital Signs
Temp Pulse Resp BP Pulse Ox
97.8 F 77 15 116/46 97
12/22/24 11:10 12/22/24 11:10 12/22/24 11:10 12/22/24 11:10 12/22/24 11:10
Vital Signs
Temp Pulse Resp BP Pulse Ox
97.8 F 77 15 116/46 97
12/22/24 11:10 12/22/24 11:10 12/22/24 11:10 12/22/24 11:10 12/22/24 11:10
Intake & Output
12/20/24 12/21/24 12/22/24 12/23/24
07:59 07:59 07:59 07:59
Intake Total 1288 / 1288 763 / 763 1443 / 1443
Balance 1288 / 1288 763 / 763 1443 / 1443
Physical Exam
Physical Exam
GEN: No distress, awake, alert, oriented x3
HEENT: supple, anicteric, mmm, eomi
LUNGS: CTA B/L, no wheezes/rales
CV: Reg, S1/S2, 2/6 murmur
ABD: soft, BS+, NT/ND
EXT: No cyanosis, clubbing, edema
NEURO: Gross non-focal
SKIN: Warm, pink, dry. No rash
--- NOTE | 2024-12-22 13:09 | W.PN.ID1 ---
Date of Service
Date of Service: December 22, 2024
Today's Communication
Continue antibiotics
Assessment / Plan
Endocarditis
Bacteremia with coag negative staph
L5-S1 discitis
Elevated CRP
Hx prior endocarditis (x 3)
Recommendations:
Blood cultures remain positive for Staph epidermidis, which match isolates recovered at OSH.
Staph. epi. noted to be MSSE.
Continue cefazolin 2 g IV every 8 hours
Monitor white count and temperature curve.
Patient for tentative valve replacements 12/23/2024.
����������������������������������������������������������
Chief Complaint
-: Bacteremia and Other (Endocarditis; lumbar discitis)
Subjective / Review of Systems
Review of Systems: No Fever and No Chills
Vital Signs / Physical Exam
Vital Signs
Vital Signs
Temp Pulse Resp BP Pulse Ox
97.8 F 77 15 116/46 97
12/22/24 11:10 12/22/24 11:10 12/22/24 11:10 12/22/24 11:10 12/22/24 11:10
Physical Exam
Constitutional: No Acute Distress, Comfortable and Non-toxic
Eyes: No Conjunctival Hemorrhage and Sclera Anicteric
Cardiovascular: Regular Rate, S1/S2 and Murmur; Negative S3/S4
Pulmonary: Clear and Non Labored; Negative Wheezes, Rales or Rhonchi
Gastrointestinal: Soft and Non Distended
Extremities: Edema; Negative Cyanosis, Erythema, Splinter Hemorrhage or Janeway Lesions
Skin: Warm and Dry; Negative Rash or Jaundice
Neurological: Awake and Alert
Psychological: Calm
Objective Data
Lab Data
Lab Results
12/21/24 03:50
12/22/24 04:01
ESR 34 mm/hour (0-20) H 12/18/24 05:08
PT 13.6 Sec (11.4-14.6) 12/17/24 02:34
INR 0.99 12/17/24 02:34
APTT 96.0 Sec (23.4-35.0) H 12/22/24 04:01
Estimated Creat Clear 114 ml/min 12/22/24 04:01
Total Bilirubin 0.8 mg/dl (0.2-1.3) 12/21/24 03:50
AST 25 U/L (17-59) 12/21/24 03:50
ALT 28 U/L (0-50) 12/21/24 03:50
Alkaline Phosphatase 103 U/L (38-126) 12/21/24 03:50
C-Reactive Protein 52.60 mg/L (0.0-10.00) H 12/17/24 02:34
Most recent labs reviewed.
Micro Results:
12/19/24 16:26 Blood Culture - Preliminary
Blood/Venous Staphylococcus epidermidis
Gram Stain - Preliminary
12/19/24 08:32 Blood Culture - Preliminary
Blood/Venous Staphylococcus epidermidis
Gram Stain - Preliminary
12/16/24 22:52 Blood Culture - Final
Blood/Venous Staphylococcus epidermidis
Gram Stain - Final
12/16/24 23:46 Blood Culture - Final
Blood/Venous Staphylococcus epidermidis
Gram Stain - Final
12/16/24 20:09 MRSA Screen - Final
Nose No Methicillin Resistant Staphylococcus aureus isolated.
12/14/20241734
Blood/Venous Blood Culture :
Coag negative staph
12/14/2024 1730
Blood/Venous Blood Culture :
Coag negative staph
Blood Culture 12/20/24-5
1. Staphylococcus epidermidis
M.I.C. RX
--------- ---
Amoxicillin/Potas. Clavulanate <=4/2 S
Ampicillin <=2 R
Clindamycin <=0.5 S
Gentamicin <=4 S
Erythromycin >4 R
Levofloxacin <=1 S
--> Oxacillin <=0.25 S
Tetracycline <=4 S
Trimethoprim/Sulfamethoxazole 2/38 S
Vancomycin 1 S
Imaging:
12/18/2024 ECHO ([facility]): EF approximately 45%. Trileaflet aortic valve with a large highly mobile echodensity noted also concern for anterior leaflet mitral valve vegetation. Please see full dictation for additional detail
12/18/2024 MRI thoracic and lumbar spine: In the thoracic spine there is no evidence of discitis or osteomyelitis. No epidural abscess or focal disc protrusion. On the lumbar MRI there is disc space narrowing at L5-S1 which is suspicious for
discitis and mild osteomyelitis. No epidural collection or abscess is noted.
12/17/2024 CT chest/abdomen/pelvis: Possible aortic valve vegetation. 2 splenic hypodense wedge-shaped areas suspicious for splenic infarcts. Pulmonary nodules also noted suspicious for possible septic emboli. Please see full dictation for
additional detail.
ECHO at [facility]: EF 37% with Severe AI and mod to severe TR with echodensity of AV and LVOT appearing adherent onto the ventricular side of the base of the anterior mitral valve leaflet
--- NOTE | 2024-12-22 13:33 | W.CVOR.SURPR ---
CVOR Surgeon Immed Pre Op
-
I have examined this patient prior to performance of the scheduled procedure.
The patient's condition is unchanged from the time of the dictated/written History and
Physical and the patient is able to undergo the scheduled procedure.
We discussed the options of a mech valve in the AV position. With his severe TR with the background of endocarditis, I'm suspicious this is secondary to infection and may find ourselves with a TVR. If this is the case, he will certainly require
another surgical intervention in his lifetime. He states he would like a biological valve, despite his age, and understands that even with improving transcatheter technology, he would need likely another open heart surgery and transcatheter
intervention down the line, the order of which is debatable. He will think about it overnight and make the decision in the morning.
--- NOTE | 2024-12-22 14:55 | PTCARENOTE ---
Pt w/ run of VT and broke back to SR. Strip in chart. Pt asymptomatic. BP 132/49. Lor COVINGTON made aware. EKG obtained and mag lab added.
[2024-12-23] MEDS: DILAUDID 0.5 MG IV ×5 (01:48→21:42)
--- NOTE | 2024-12-23 05:03 | PTCARENOTE ---
Assumed care of pt from dayshift. Hep gtt continues infusing at 21 mls/hour. Pt requiring Dilaudid Q4 hour for left flank pain rating it 7 or 8/10. VSS. SR/ST on monitor , HR 60s-100s. OOB as tolerated independently.
[2024-12-23] MEDS: ANCEF 10 IV ×3 (05:29→19:22)
[2024-12-23] MEDS: HEPARIN 25000 UNITS/250 ML IV ×2 (05:30→18:43)
[2024-12-23 05:33] LABS: Hematocrit 37.1 % (39.0-52.0); Hemoglobin 13.2 g/dL (13.0-18.0); Mean Corp Hgb Conc. 35.6 g/dL (33.0-37.0); Mean Corpuscular Hgb 32.1 pg (27.0-31.0); Mean Corpuscular Volume 90.3 fL (80.0-94.0); Mean Platelet Volume 8.6 fL (7.4-10.4); Platelet Count 251 10^3/uL (130-400); Red Blood Cell Count 4.11 10^6/uL (4.70-6.10); White Blood Cell Count 7.4 10^3/uL (4.8-10.8)
[2024-12-23 05:36] VITALS: BP 127/48
[2024-12-23 05:40] LABS: APTT 84.3 Sec (23.4-35.0)
[2024-12-23 05:45] LABS: Blood Urea Nitrogen 23 mg/dl (9-20); Calcium 9.4 mg/dl (8.4-10.2); Carbon Dioxide 25 mmol/L (22-30); Chloride 107 mmol/L (98-107); Estimated Creatinine Clearance 114 ml/min; Glucose 107 mg/dl (70-99); Potassium 4.4 mmol/L (3.5-5.1); Sodium 139 mmol/L (135-145); eGFR > 60.00
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
[2024-12-23 06:58] VITALS: BP 109/51
[2024-12-23] MEDS: NEURONTIN 600 MG PO ×3 (07:21→21:42)
[2024-12-23] MEDS: LASIX 20 MG PO (07:21)
[2024-12-23] MEDS: COREG 3.125 MG PO ×2 (07:21→19:22)
[2024-12-23] MEDS: ALDACTONE 25 MG PO (07:27)
--- NOTE | 2024-12-23 08:39 | W.PN.CARDCBS ---
Addendum entered and electronically signed by Alberto Escudero MD 12/23/24 10:48:
I saw and examined the patient.
The Snuff Container Inspector's note was reviewed and I agree with the note.
Comment: Briefly, 39-year-old man past medical history of endocarditis complicated by severe aortic regurgitation and severe tricuspid regurgitation with resultant cardiomyopathy
He was referred to [place] for CT surgery evaluation to address his valvular pathology
Intermittent left-sided chest discomfort which sounds pleuritic in nature, but otherwise no complaints
Appears euvolemic on exam and is not reporting any symptoms of decompensated heart failure
Would continue current oral Lasix and Aldactone dosing
Entresto and Farxiga on hold for OR
Tentative plan for OR tomorrow
We will follow along with you
Original Note:
Today's Communication / Plan
-
for AVR/TVR/LENCHO clip 12/24/24
continue IV heparin, IV abx
Impression / Plan
-
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
Assessment:
Presentation to [facility] with back pain
Leukocytosis
Left pulmonary embolus started on anticoagulation at [facility]
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
Severe AI and mod to severe TR with echodensity of AV and LVOT by echo at [facility]
Cardiomyopathy, EF 37% by echo at [facility]
History of endocarditis x3 ~2017, treated with IV abx
Clot in setting of above requiring thrombectomy
History of IVDA (heroin, sober since 06/2023)
Multiple dental extractions over last several months
Tobacco use
Daily ETOH use (2-3 beers daily)
ECHO at [facility]: EF 37% with Severe AI and mod to severe TR with echodensity of AV and LVOT appearing adherent onto the ventricular side of the base of the anterior mitral valve leaflet
ECHO 12/17/24: EF 45-50%, possible basal inferior hypokinesis, stage 1 diastolic dysfunction, mobile echodensities at junction of anterior leaflet of mitral valve in LVOT, mod sized highly mobile echodensity of NCC, severe AR, small mobile echodensity
suspicious for endocarditis on tricuspid valve with moderate to severe TR, PAP 30 mmHg
LAURIE 12/18/2024: EF 45 to 50%. Large highly mobile echodensity (1.5 cm x 0.6 cm) suspected to be vegetation near anterior leaflet of mitral valve. No mitral regurgitation. Also appears to have vegetation associated with aortic valve with leaflet
perforation at RCC and some involvement of the NCC associated with severe AI. Calcified ehodensity (0.9 cm x 0.3 cm) associated with the tricuspid valve is visualized. Suspect calcified vegetation. Severe tricuspid regurgitation.
Plan:
-39-year-old gentleman with history of prior IV drug abuse, sober since June 2023 presents with left-sided pulmonary embolism and MSSE bacteremia s/p LAURIE 12/18/24 with EF 45 to 50%, large highly mobile echodensity of aortic valve appears to be
associated with LVOT near anterior leaflet of mitral valve, no mitral valve regurgitation, another vegetation associated with aortic valve, leaflet perforation at RCC and also some involvement of NCC, severe AR, calcified echodensity associated of
tricuspid valve with severe TR
-reports back pain is improving. states remains with some pleuritic pain
-plan for AVR/TVR/LENCHO clip 12/24/24
-continue IV heparin for PE
-continue IV abx. appreciate ID
-in SR on review of tele overnight
-Patient has a history of cardiomyopathy. Entresto/Farxiga held in anticipation of surgery on 12/23/2024. continue coreg, aldactone
-spine MRI with evidence of possible discitis/mild osteomyelitis with no abscess. Neurosurgery evaluation appreciated. no surgical intervention at this time but continue treatment with IV abx. Recommended surveillance imaging studies MRI of lower
spine with and without contrast in 6 weeks to reassess presumed osteodiscitis.
-tobacco/ETOH cessation has been encouraged
PREADMIT DATA:
-Patient presented to [facility] with back pain and was found to have leukocytosis. Then by imaging noted to have left PE with evidence of RV dysfunction out of proportion to degree of pulmonary embolus burden. Underwent echocardiogram
which showed EF of 37% as well as severe AI and moderate to severe TR with echodensity of aortic valve as well as left ventricular outflow tract. Patient was then transferred to [facility] for CT surgical evaluation for endocarditis.
Progress Note - Supervisor [employer]
Subjective
Date of Service: December 23, 2024
Reports back discomfort is somewhat improved. Continues with pleuritic discomfort, particularly with deep breathing
Objective
Labs:
12/23/24 05:02
12/23/24 05:02
Labs
Hgb 13.2 g/dL (13.0-18.0) 12/23/24 05:02
Hct 37.1 % (39.0-52.0) L 12/23/24 05:02
Plt Count 251 10^3/uL (130-400) 12/23/24 05:02
PT 13.6 Sec (11.4-14.6) 12/17/24 02:34
INR 0.99 12/17/24 02:34
APTT 84.3 Sec (23.4-35.0) H 12/23/24 05:02
Sodium 139 mmol/L (135-145) 12/23/24 05:02
Potassium 4.4 mmol/L (3.5-5.1) 12/23/24 05:02
BUN 23 mg/dl (9-20) H 12/23/24 05:02
Creatinine 0.9 mg/dL (0.7-1.3) 12/23/24 05:02
Glucose 107 mg/dl (70-99) H 12/23/24 05:02
Vital Signs and I&O:
Vital Signs
Temp Pulse Resp BP Pulse Ox
97.8 F 69 16 127/48 97
12/23/24 07:00 12/23/24 05:36 12/23/24 07:00 12/23/24 05:36 12/23/24 07:09
Vital Signs
Temp Pulse Resp BP Pulse Ox
97.8 F 69 16 127/48 97
12/23/24 07:00 12/23/24 05:36 12/23/24 07:00 12/23/24 05:36 12/23/24 07:09
Intake & Output
12/21/24 12/22/24 12/23/24 12/24/24
07:59 07:59 07:59 07:59
Intake Total 763 / 763 1443 / 1443 600 / 600
Balance 763 / 763 1443 / 1443 600 / 600
Physical Exam
Physical Exam
GEN: No distress, awake, alert, oriented x3
HEENT: supple, anicteric, mmm, eomi
LUNGS: CTA B/L, no wheezes/rales
CV: Reg, S1/S2, 2/6 murmur
ABD: soft, BS+, NT/ND
EXT: No cyanosis, clubbing, edema
NEURO: Gross non-focal
SKIN: Warm, pink, dry. No rash
[2024-12-23 10:44] VITALS: BP 120/62
--- NOTE | 2024-12-23 11:04 | CM ---
Chart reviewed. Patient's surgery reschedule and his AVR/TVR will be tomorrow. Patient lives at a Boarding House, [address], patient's room is on the 3rd floor, 2 full flight of stairs, 0 DME. Patient has IVDA history. I spoke to Hi, the fabrication manager
at the [facility], and he said it is not a recovery house, patient will be able to come back there on IV antibiotics. Dr Contreras is OK with the patient returning to the boarding house. Patient's girlfriend is house sitting and patient would
like to go there and then back to his Boarding House. Patient will confirm with CM and get address. Plan is for the patient to go with girlfriend or home with IV antibiotics. CM to follow
--- NOTE | 2024-12-23 11:17 | W.PN.ID1 ---
Date of Service
Date of Service: December 23, 2024
Today's Communication
Continue antibiotics. Recheck blood cultures today.
Assessment / Plan
Endocarditis
Bacteremia with coag negative staph
L5-S1 discitis
Elevated CRP
Hx prior endocarditis (x 3)
Recommendations:
Blood cultures remain positive for Staph epidermidis, which match isolates recovered at OSH.
Staph. epi. noted to be MSSE.
Continue cefazolin 2 g IV every 8 hours
Repeat blood cultures x 2 today.
Monitor white count and temperature curve.
Patient for tentative valve replacements 12/24/2024.
����������������������������������������������������������
Chief Complaint
-: Bacteremia and Other (Endocarditis; lumbar discitis)
Subjective / Review of Systems
Review of Systems: No Fever and No Chills
Vital Signs / Physical Exam
Vital Signs
Vital Signs
Temp Pulse Resp BP Pulse Ox
97.8 F 69 16 127/48 97
12/23/24 07:00 12/23/24 05:36 12/23/24 07:00 12/23/24 05:36 12/23/24 07:09
Physical Exam
Constitutional: No Acute Distress, Comfortable and Non-toxic
Eyes: No Conjunctival Hemorrhage and Sclera Anicteric
Cardiovascular: Regular Rate, S1/S2 and Murmur; Negative S3/S4
Pulmonary: Clear and Non Labored; Negative Wheezes, Rales or Rhonchi
Gastrointestinal: Soft and Non Distended
Extremities: Edema; Negative Cyanosis, Erythema, Splinter Hemorrhage or Janeway Lesions
Skin: Warm and Dry; Negative Rash or Jaundice
Neurological: Awake and Alert
Psychological: Calm
Objective Data
Lab Data
Lab Results
12/23/24 05:02
12/23/24 05:02
ESR 34 mm/hour (0-20) H 12/18/24 05:08
PT 13.6 Sec (11.4-14.6) 12/17/24 02:34
INR 0.99 12/17/24 02:34
APTT 84.3 Sec (23.4-35.0) H 12/23/24 05:02
Estimated Creat Clear 114 ml/min 12/23/24 05:02
Total Bilirubin 0.8 mg/dl (0.2-1.3) 12/21/24 03:50
AST 25 U/L (17-59) 12/21/24 03:50
ALT 28 U/L (0-50) 12/21/24 03:50
Alkaline Phosphatase 103 U/L (38-126) 12/21/24 03:50
C-Reactive Protein 52.60 mg/L (0.0-10.00) H 12/17/24 02:34
Most recent labs reviewed.
Micro Results:
12/16/24 23:46 Blood Culture - Final
Blood/Venous Staphylococcus epidermidis
Gram Stain - Final
12/19/24 16:26 Blood Culture - Preliminary
Blood/Venous Staphylococcus epidermidis
Gram Stain - Preliminary
12/19/24 08:32 Blood Culture - Preliminary
Blood/Venous Staphylococcus epidermidis
Gram Stain - Preliminary
12/16/24 22:52 Blood Culture - Final
Blood/Venous Staphylococcus epidermidis
Gram Stain - Final
12/16/24 20:09 MRSA Screen - Final
Nose No Methicillin Resistant Staphylococcus aureus isolated.
12/14/20241734
Blood/Venous Blood Culture :
Coag negative staph
12/14/20241729
Blood/Venous Blood Culture :
Coag negative staph
Blood Culture 12/20/24-1015
1. Staphylococcus epidermidis
M.I.C. RX
--------- ---
Amoxicillin/Potas. Clavulanate <=4/2 S
Ampicillin <=2 R
Clindamycin <=0.5 S
Gentamicin <=4 S
Erythromycin >4 R
Levofloxacin <=1 S
--> Oxacillin <=0.25 S
Tetracycline <=4 S
Trimethoprim/Sulfamethoxazole 2/38 S
Vancomycin 1 S
Imaging:
12/18/2024 ECHO ([facility]): EF approximately 45%. Trileaflet aortic valve with a large highly mobile echodensity noted also concern for anterior leaflet mitral valve vegetation. Please see full dictation for additional detail
12/18/2024 MRI thoracic and lumbar spine: In the thoracic spine there is no evidence of discitis or osteomyelitis. No epidural abscess or focal disc protrusion. On the lumbar MRI there is disc space narrowing at L5-S1 which is suspicious for
discitis and mild osteomyelitis. No epidural collection or abscess is noted.
12/17/2024 CT chest/abdomen/pelvis: Possible aortic valve vegetation. 2 splenic hypodense wedge-shaped areas suspicious for splenic infarcts. Pulmonary nodules also noted suspicious for possible septic emboli. Please see full dictation for
additional detail.
ECHO at [facility]: EF 37% with Severe AI and mod to severe TR with echodensity of AV and LVOT appearing adherent onto the ventricular side of the base of the anterior mitral valve leaflet
--- NOTE | 2024-12-23 14:20 | W.PN.HOSP.TC ---
Today's Communication/Plan
-
CTS tomorrow
CW IV heparin- dc holistic health practitioner to OR
Assessment / Plan
Assessment / Plan
#Infective endocarditis involving the aortic valve.
#Staph epidermidis bacteremia-persistent positivity blood cultures noted
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
#Back pain likely secondary to osteoarthrosis suspected discitis osteomyelitis at L5-S1-
#History of endocarditis x 3
Vancomycin discontinued on 12/20/2024 and started on cefazolin per ID. Continue with antibiotics per ID
MRSA screen negative
Blood cultures growing Staph epidermidis. Sensitivity noted
Surveillance cultures positive
Transesophageal echocardiogram showing endocarditis involving LVOT, AV with perforation and severe AR, and tricuspid valve. Tricuspid valve lesion is calcified�may be old but TR is severe
CRP elevated
MRI of the thoracic spine negative
MRI of the lumbar spine abnormal finding at L5-S1 level Osteoarthritis versus discitis/osteomyelitis-per neurosurgery no plan for surgery. Continue with medical management and treating with antibiotics.
CT surgery planned AVR/TVR +/- LENCHO clip by Dr. Pugh on 12/24.
Possibly surgical treatment will help sterilize the bloodstream.
# Acute pulmonary embolism in the left lung-noted at [facility].
CT angiogram of the chest on this admission shows pulmonary nodule and raises concern for septic emboli.
Continue with heparin drip infusion for now until surgical plan is confirmed.
#Splenic infarcts/ pulmonary nodules likely septic emboli
Pain control. On anticoagulation.
# Chronic HFrEF
Continue with goal-directed medical therapy with Aldactone, Lasix. Holding Entresto and Farxiga pre-CT surgery
Monitor creatinine closely
Blood pressure controlled.
chest x-ray 12/21 without pleural effusions
# Alcohol abuse
No signs and symptoms of withdrawal
# History of IV drug abuse
Currently states he is drug-free
#Tobacco abuse
Currently on nicotine patch.
Counseled on cessation.
DVt ppx on hep drip
Full code
Anticipated Discharge: > 48 hours
Subjective/Interval History
-
Date of Service: December 23, 2024
Voicing no specific complaints.
Await CT surgery tomorrow.
Denies shortness of breath, chest pain. No nausea vomiting.
No fever or chills.
Objective Data
-
Labs:
Laboratory Results
12/23/24
05:02
WBC 7.4
Hgb 13.2
Hct 37.1 L
Plt Count 251
APTT 84.3 H
Sodium 139
Potassium 4.4
Chloride 107
Carbon Dioxide 25
BUN 23 H
Creatinine 0.9
Glucose 107 H
Calcium 9.4
Vital Signs:
Vital Signs
Temp Pulse Resp BP Pulse Ox
98.1 F 69 20 127/48 96
12/23/24 11:39 12/23/24 05:36 12/23/24 11:39 12/23/24 05:36 12/23/24 11:39
I&O
12/22/24 12/23/24 12/24/24
06:59 06:59 06:59
Intake Total 1443 / 1443 600 / 600
Balance 1443 / 1443 600 / 600
Physical Exam
-
Respiratory: Non Labored Respirations; Negative Accessory Resp Muscle Use
Cardiac: Regular Rhythm and S1/S2
GI: Soft
Neuro: AO x 3
Data Reviewed
-
Labs: Labs Reviewed by me
[2024-12-23 15:18] VITALS: BP 119/53
--- NOTE | 2024-12-23 18:01 | PTCARENOTE ---
Pt received this am with c/o of left chest/side pain requesting Dilaudid. Pt using the Dilaudid q4hrs. Pt oob ad karen. Heparin infusing as ordered.
[2024-12-23 19:16] VITALS: BP 131/61
[2024-12-23] MEDS: ROXICODONE 5 MG PO (19:23)
[2024-12-23 22:47] VITALS: BP 116/50
[2024-12-24] VITALS (14 sets, daily range): BP systolic 90–119; BP diastolic 52–88; BMI 26.3
[2024-12-24] MEDS: DILAUDID 0.5 MG IV ×4 (02:34→22:27)
[2024-12-24 05:15] LABS: APTT 96.1 Sec (23.4-35.0)
[2024-12-24] MEDS: BACTROBAN 2% OINTMENT 1 APPLIC NASAL ×2 (05:59→20:57)
[2024-12-24] MEDS: LOPRESSOR 25 MG PO (06:00)
[2024-12-24] MEDS: MAGNESIUM OXIDE 500 MG PO (06:00)
[2024-12-24] MEDS: PROTONIX 40 MG PO (06:01)
--- NOTE | 2024-12-24 06:10 | W.CVOR.SURPR ---
CVOR Surgeon Immed Pre Op
-
I have examined this patient prior to performance of the scheduled procedure.
The patient's condition is unchanged from the time of the dictated/written History and
Physical and the patient is able to undergo the scheduled procedure.
He has made the decision to move forward with two biological valves
--- NOTE | 2024-12-24 06:40 | PTCARENOTE ---
Pt. clipped and showered x 2 with CHG soap this shift, also wipes in the AM. All linens changed, bed and equipment switched out for CVICU equipment, pre-op medications given. Heparin gtt dc'd human capital consultant to OR (per CV-PA) - report given to CVOR nurse
[place]. Pt. transported to OR at 0630.
[2024-12-24 07:19] LABS: ACT+ - POC 115 Seconds (82-134)
[2024-12-24 07:26] LABS: Urine Albumin 1+ (Neg - Trace); Urine Bilirubin Negative (Negative); Urine Character Clear (Clear); Urine Color Yellow; Urine Glucose Negative (Negative); Urine Ketone Negative (Negative); Urine Leukocyte Negative (Negative); Urine Nitrite Negative (Negative); Urine Occult Blood 1+ (Negative); Urine Urobilinogen Negative (Neg - 1+)
[2024-12-24 08:06] LABS: ACT+ - POC 451 Seconds (82-134)
[2024-12-24 08:19] LABS: Urine Squamous Cell 0-2 /LPF (Few)
[2024-12-24 08:32] LABS: B.E. - POC -0.4 mmol/L; Glucose - POC 108 mg/dl (70-99); HCO3 - POC 26 mmol/L (21-28); Hematocrit - POC 36 % PCV (42-52); Hemodilution- POC No; Hemoglobin Calculated - POC 12.2; Ionized Calcium - POC 1.27 mmol/L (1.15-1.33); Lactate - POC 1.29 mmol/L (0.36-0.75); O2 Saturation %Calculated-POC 99.7 % (94-98); PCO2 - POC 46 mmHg (35-48); PO2 - POC 218 mmHg (83-108); POC Comment PRE; Potassium - POC 4.3 mmol/L (3.5-5.1); Sodium - POC 138 mmol/L (136-145); Specimen Type - POC Arterial; pH - POC 7.35 (7.35-7.45)
[2024-12-24 08:42] LABS: ACT+ - POC 446 Seconds (82-134)
[2024-12-24 08:53] LABS: B.E. - POC 3.1 mmol/L; Glucose - POC 147 mg/dl (70-99); HCO3 - POC 30 mmol/L (21-28); Hematocrit - POC 28 % PCV (42-52); Hemodilution- POC Yes; Hemoglobin Calculated - POC 9.4; Ionized Calcium - POC 1.09 mmol/L (1.15-1.33); Lactate - POC 1.16 mmol/L (0.36-0.75); PCO2 - POC 56 mmHg (35-48); PO2 - POC 400 mmHg (83-108); POC Comment CPB; Potassium - POC 5.5 mmol/L (3.5-5.1); Sodium - POC 136 mmol/L (136-145); Specimen Type - POC Arterial; pH - POC 7.34 (7.35-7.45)
[2024-12-24 08:59] LABS: ACT+ - POC 457 Seconds (82-134)
[2024-12-24 09:27] LABS: B.E. - POC 2.6 mmol/L; Glucose - POC 169 mg/dl (70-99); HCO3 - POC 28 mmol/L (21-28); Hematocrit - POC 29 % PCV (42-52); Hemodilution- POC Yes; Hemoglobin Calculated - POC 9.7; Ionized Calcium - POC 1.08 mmol/L (1.15-1.33); Lactate - POC 1.92 mmol/L (0.36-0.75); O2 Saturation %Calculated-POC 99.8 % (94-98); PCO2 - POC 43 mmHg (35-48); PO2 - POC 247 mmHg (83-108); POC Comment CPB; Potassium - POC 6.4 mmol/L (3.5-5.1); Sodium - POC 134 mmol/L (136-145); Specimen Type - POC Arterial; pH - POC 7.41 (7.35-7.45)
--- NOTE | 2024-12-24 09:28 | CM ---
Addendum entered by AVINASH Cummings 12/24/24 10:55:
Per [employer], patient is covered at 100% for infusion care. [employer] will provide infusion nursing, no need for CM to arrange additional home-care agency.
At this time, anticipate HOME w/ IV ABT + CT Transitional Care RN.
Original Note:
Patient in OR today for CT Surgery.
Reviewed initial assessment. Pt. resides in a [address] [facility] with 2 FF of stairs to his bedroom.
Pt. is functionally indep. at baseline w/ ADLs, mobility.
At [place], patient is planning to stay with his sig. other while she house-sits in [place]. Will need to clarify address + for how long.
Anticipating that patient will require long tern IV ABX at [place]. I have sent preliminary paperwork to [employer] (infusion company) for benefit check. Will need to update them accordingly.
Will follow.
[2024-12-24 09:35] LABS: ACT+ - POC 452 Seconds (82-134)
[2024-12-24 09:47] LABS: B.E. - POC -0.8 mmol/L; Glucose - POC 252 mg/dl (70-99); HCO3 - POC 25 mmol/L (21-28); Hematocrit - POC 30 % PCV (42-52); Hemodilution- POC Yes; Hemoglobin Calculated - POC 10.1; Ionized Calcium - POC 1.08 mmol/L (1.15-1.33); Lactate - POC 3.01 mmol/L (0.36-0.75); O2 Saturation %Calculated-POC 97.5 % (94-98); PCO2 - POC 49 mmHg (35-48); PO2 - POC 105 mmHg (83-108); POC Comment CPB; Potassium - POC 6.3 mmol/L (3.5-5.1); Sodium - POC 135 mmol/L (136-145); Specimen Type - POC Arterial; pH - POC 7.33 (7.35-7.45)
[2024-12-24 09:54] LABS: ACT+ - POC 457 Seconds (82-134)
[2024-12-24 10:00] LABS: B.E. - POC -0.2 mmol/L; Glucose - POC 204 mg/dl (70-99); HCO3 - POC 27 mmol/L (21-28); Hematocrit - POC 35 % PCV (42-52); Hemodilution- POC Yes; Hemoglobin Calculated - POC 11.8; Ionized Calcium - POC 1.06 mmol/L (1.15-1.33); Lactate - POC 3.64 mmol/L (0.36-0.75); O2 Saturation %Calculated-POC 99.4 % (94-98); PCO2 - POC 54 mmHg (35-48); PO2 - POC 179 mmHg (83-108); POC Comment WARM; Potassium - POC 6.1 mmol/L (3.5-5.1); Sodium - POC 139 mmol/L (136-145); Specimen Type - POC Arterial; pH - POC 7.31 (7.35-7.45)
[2024-12-24 10:37] LABS: B.E. - POC -0.2 mmol/L; Glucose - POC 211 mg/dl (70-99); HCO3 - POC 24 mmol/L (21-28); Hematocrit - POC 33 % PCV (42-52); Hemodilution- POC Yes; Hemoglobin Calculated - POC 11.1; Lactate - POC 3.76 mmol/L (0.36-0.75); O2 Saturation %Calculated-POC 99.2 % (94-98); PCO2 - POC 35 mmHg (35-48); PO2 - POC 134 mmHg (83-108); POC Comment CPB; Sodium - POC 137 mmol/L (136-145); Specimen Type - POC Arterial; pH - POC 7.44 (7.35-7.45)
[2024-12-24 10:42] LABS: ACT+ - POC 123 Seconds (82-134)
[2024-12-24] MEDS: NEURONTIN PO ×2 (10:45→16:10)
[2024-12-24] MEDS: COREG PO (10:46)
[2024-12-24] MEDS: LASIX PO (10:46)
[2024-12-24] MEDS: ALDACTONE PO (10:46)
--- NOTE | 2024-12-24 10:58 | W.PN.CT.SURG ---
CT Surgery Operative Note
-
CARDIAC SURGERY OPERATIVE REPORT
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
Postoperative Diagnosis: Same
Procedure(s) Performed:
1. Standard sternotomy with aortic and bicaval cannulation
2. Surgical aortic valve replacement [27 mm bioprosthesis]
3. Extensive debridement of the anterior leaflet of the mitral valve on the ventricular aspect
4. Chordal sparing tricuspid valve replacement [33 mm bioprosthesis]
5. Left atrial appendage exclusion [50 mm device]
6. Placement of temporary atrial ventricular pacing wires
7. Transesophageal echocardiography
Date of Surgery: 12/24/2024
Comorbidities:
1. 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
2. Acute on chronic systolic and diastolic congestive heart failure with a EF of approximately 25% that recovered to 45% preoperatively
3. Osteomyelitis and splenic infarcts and abscess
4. History of endocarditis x 3
5. Acute pulmonary embolism of the left lung
6. EtOH abuse
7. History of IVDA
8. Tobacco abuse
Attending Surgeon: Brandon Pugh MD, MS
Assistants: Srinivas Galan PA-C (present and necessary to registered medical assistant, retraction, suction, exposure, suture management, and wound closure under my direction)
Anesthesiology: Gene Ramsye MD and Carson Kendrick CRNA
Scrub and Circulating RNs: Shanice Arce RN, Shreya Graham RN
Fieldwork Coordinator: Manpreet Mccabe CCP
Anesthesia: GETA
EBL: per perfusion records
Products: 2 FFP for heparin resistance
CPB Time: 112 minutes
Aortic Cross Clamp Time: 91 minutes
Indication(s) for Procedures: This is a 39-year-old male with a history of IVDA and endocarditis x 3. He presents with a dilated left ventricle reduced left trickle ejection fraction that was acute on chronic and severe aortic valve insufficiency
and severe tricuspid valve insufficiency secondary to endocarditis. Extensive discussion was had with the patient, overall consensus was to pursue 2 biological valves if necessary. Blood cultures were growing staph epi on multiple sets. A period
of approximately 7 days was given order for antibiotics to help eradicate bacteremia prior to surgery.
Aortic Valve Description: All 3 leaflets were destroyed with multiple fenestrations and vegetations on the ventricular aspect of the leaflets, left and right coronary ostia with normal anatomic positions.
Mitral Valve Description: There was an extensive degree of vegetations on the ventricular aspect of the aorto mitral curtain heading down to the LVOT. This was debrided with no clear perforation.
Tricuspid Valve Description: There is evidence of dilated tricuspid annulus and the anterior leaflet of the tricuspid valve looked as though it had burned-out endocarditis with the free margin being scarred and abnormal. All cords are elongated.
There is no evidence of active infection at this time however I did not feel that the repair of this valve was feasible.
Findings: His left ventricular ejection fraction preoperatively was essentially 50 to be 55% under anesthesia, the LV was dilated. He had severe aortic valve insufficiency due to destruction of his leaflets, and severe tricuspid valve
insufficiency. There is no significant mitral valve insufficiency however there was LVOT vegetations along the ventricular aspect of the anterior leaflet of the aorto mitral curtain. Following surgery his EF was approximately 45% with no new
regional wall motion abnormalities. There was initially mild to moderate mitral valve insufficiency secondary to LV dysfunction that improved with time and regaining of his sinus rhythm. The RV was normal size and function. There was no
paravalvular leak of the aortic valve leaflets, there was normal leaflet excursion and the mean gradient across the new valve was 8 mmHg. The valve was replaced with a total of 16 nonpledgeted 2-0 Ethibond sutures placed from LVOT through annulus
through sewing cuff. These were secured to place with core knots. I did examine the mitral valve with a dental mirror through the root, this was after debriding the vegetations off the aorto mitral curtain. There was no significant vegetations on
the mitral valve and the cords appeared to be normal as I left this alone. Moving onto the tricuspid valve, I felt the anteriorly for the tricuspid valve is very abnormal and the free margin was scarred from previous infections. The cords were
also elongated and the annulus was dilated. I did not feel that that could salvage this tricuspid valve and so the valve was replaced using a plication technique toward the septal leaflet in order to avoid the AV node. The rest the sutures were
placed to the annulus. A total of 14 pledgeted 2 Ethibond sutures were placed from RV through the leaflet/annulus through sewing cuff and secured with core knots. The Watkins was then replaced back into the RVOT. After, of cardiopulmonary bypass she
was initially on 3 of epinephrine however I quickly transitioned this to dobutamine at 4, on this he had a cardiac index of over 2.5 and his SVR was 900. He initially required AV pacing but then was able to regain a sinus rhythm. He only received
blood products because he was heparin resistant on cardiopulmonary bypass and so 2 FFP was ordered. The left atrial Penders was clipped flush the base and verified to be free of any thrombus or debris preoperatively and found to have no flow
postoperatively. Intraoperative cultures were sent.
Specimen(s): Aortic valve leaflets with vegetation, vegetation on the mitral valve. Both sent for culture.
Prosthesis:
1. 27 mm Valenz[employer]'s Resilia aortic valve bioprosthesis, serial #[id number]
2. 33 mm Valenzuela mitral's Resilia mitral valve bioprosthesis, serial #[id number]
3. 50 mm left atrial appendage clip, serial #[id number]
Description of Procedure: The patient was taken to the operating room. Their identity and procedure to be performed were verified and they were positioned supine on the operating table. Induction via general anesthesia with endotracheal intubation
was performed and central venous access and arterial monitoring were inserted. A preoperative transesophageal echocardiogram was performed to assess cardiac function and valvular function. The patient was then prepped and draped from chin to feet in
a sterile fashion. A preoperative time-out was performed with all members of the team present. A midline chest incision was performed along with median sternotomy. The innominate vein was isolated. Full heparinization was given (a total of 70
units). We created a pericardial well. The aortic cannulation site was chosen where it was soft, pliable, and free of calcium. Cannulation was performed with an arterial cannula in the ascending aorta, angled metal tip cannular in the superior vena
cava and straight bendable cannula in the inferior vena cava. The arterial cannula line had an appropriate bounce and correlating pressures. Next, a retrograde coronary sinus catheter was placed under manual and echo guidance. The pulmonary artery
was away from the aorta to facilitate a clamp site.The ACT was confirmed to be over 400 and retrograde autologous priming was performed before applying the cross-clamp and commencing cardiopulmonary bypass. At this point retrograde
cardioplegia was given with an intended dose of approximately 800 cc. The ascending aorta was opened and the heart was exsanguinated and the stay sutures were placed in order to facilitate exposure. Once 800 cc of antegrade cardioplegia was given,
additional cardioplegia down the left main and right coronary ostia were given to a dose of 1200 cc total. Planned for re-dosing every 60 minutes as necessary. There was rapid electro-mechanical arrest of the heart as soon as we started giving down
the right coronary ostia. Cold slush was placed into a lap on the RV and we systemically cooled to 34 degrees centigrade. Carbon dioxide was used to flood the field. The aortotomy was then extended towards the pulmonary artery and down towards the
STJ at the noncoronary sinus. The location of both left and right coronary vessels were visualized in the root.The leaflets were excised and sent for pathological assessment and culture. Once the leaflets were excised, there is obvious vegetations
toward the ventricular aspect of the aorto mitral curtain which was debrided using suction and a freer elevator. The root and left ventricular outflow tract were thoroughly irrigated with a diluted Betadine solution to remove any debris. I then
inspected the mitral valve through the root using a dental mirror and felt there was no active infection of the mitral valve on the atrial or chordal structures.
I turned my attention back toward the root. A total of 16 Non-pledgeted 2-0 ethibond inverted annular sutures were placed [id number] circumferentially. These were brought through the sewing cuff of the prosthetic valve which as then parachuted
into place. The left and right coronary ostia were visualized and were unobstructed by the valve. A Cor-Knot device was used to secure the annular sutures. The valve was inspected and was well seated. The aortotomy was approximated with 4-0 prolene
in two layers. PrevaLeak sealant was placed along the suture line for reinforcement. An additional 150cc of antegrade cardioplegia was given once the root vent was inserted and with a new competent valve.
While the heart was still arrested, I opened the right atrium longitudinally at the insertion point of the coronary sinus catheter. Pledgetted annular sutures were placed (at the anterio-septal to mid-septal portion I plicated the leaflets and
placed it just through the leaflet tissue to avoid the AV condition system). The tricuspid valve was replaced with a 33mm bioprosthesis as described above and the swan was manually replaced into the RVOT. De-airing maneuvers were performed and
temporary atrial and ventricular pacing wires were placed at the SVC/RA junction and base of the right ventricle, respectively. The patient was placed in a Trendelenburg position and flows on bypass were lowered. The aortic cross clamp was removed
and flows were slowly brought back up. The heart was allowed to reperfused while the RA suture line was closed in two layers with 5-0 prolene in a running fashion.
Transesophageal echocardiography revealed normal functioning AV prosthesis that was well seated without PVL or AI. There was only mild TR from the swan without PVL of the TV prosthesis. Once de-airing was satisfactory the left ventricular and root
vents were removed. After verifying acceptable parameters, we initiated weaning from cardiopulmonary bypass. Once we were off cardiopulmonary bypass, the venous cannulas was clamped and removed sequentially. A test dose of protamine was administered
and the patient was monitored for any adverse reaction before resuming protamine. Once half of the protamine dose was delivered, pump suckers were turned off and the systolic blood pressure was lowered for aortic decannulation. The aortic cannula
was removed and purse strings were tied down. All cannulation sites were oversewn with a 4-0 prolene. The right atrial suture line was inspected and hemostasis was confirmed. Mediastinal hemostasis was obtained. Two #24 Hema drains were placed
within the pericardium. The sternum was approximated with 4 #7 single and 3 #8 double stainless steel wires. Fascia was approximated with #1 vicryl suture. The subcutaneous, dermis and epidermis were closed in layers in a running fashion. The skin
wound was cleansed and dressed.
All instrument, sponge, and needle counts were confirmed to be correct x 2 at the end of the operation. The patient was transferred to the cardiac intensive care unit in critical but stable condition.
I, Dr. Brandon Pugh, was present, scrubbed for, and performed all critical elements of this procedure.
Brandon Pugh MD, MS
Cardiothoracic Surgeon
[facility]
This dictation was created using the [employer] dictation system. Please excuse any grammatical, typographical, or 'sound alike' errors
[2024-12-24 11:24] LABS: Glucose - POC 135 mg/dl (70-99); HCO3 - POC 29 mmol/L (21-28); Hematocrit - POC 31 % PCV (42-52); Hemodilution- POC Yes; Hemoglobin Calculated - POC 10.4; Ionized Calcium - POC 1.21 mmol/L (1.15-1.33); Lactate - POC 1.64 mmol/L (0.36-0.75); PCO2 - POC 54 mmHg (35-48); PO2 - POC 522 mmHg (83-108); POC Comment POST; Potassium - POC 3.9 mmol/L (3.5-5.1); Sodium - POC 142 mmol/L (136-145); Specimen Type - POC Arterial; pH - POC 7.34 (7.35-7.45)
[2024-12-24 11:47] LABS: Hepatitis B Surface Antigen Negative (Negative)
[2024-12-24 11:51] LABS: Glucose - Point of Care 125 mg/dl (70-99)
[2024-12-24 11:58] LABS: HIV Combo Negative (Negative)
--- NOTE | 2024-12-24 12:00 | PTCARENOTE ---
assumed care of patient @ 1130. received pt from [facility] intubated, sedate. Pt currently unresponsive, pupils are 3 and reactive. NSR with R bundle branch on tele. AV wires set to DDD rate 45, A 10, 0.5 V 0.3, 2. Box turned on, wires left unplugged,
was apparently competing. BP labile on arrival 80s-130s. Goal 90-130. [place] in right atria on chest xray, repositioned by providers at bedside , repeat xray showed correct placement in pulmonary artery. PAPs 20s/10s, CVP ~ 10. output 4.57, index
2.27, SVR 1207. 8.0 ET tube 22 @ lip SIMv 16, 500, 5/5 40 % pulling good volumes satting 100%. lungs clear and audible anteriorly. 2 mediastinal chest tubes to wall suction with moderate drainage, no air leaks tidaling or crepitus noted. belly
soft, hypoactive. indwelling summers draining clear yellow urine. [employer] CDI. R IJ cordis, swan now at 45. L radial a line, PIV x2 all patent. central lines zeroed and flushed. Labs drawn and sent, EKG preformed, summers care done, suctioned for thin
secretions and mouth swabbed.
[2024-12-24 12:05] LABS: Hepatitis B Surface Antibody Negative; Hepatitis C Antibody Negative (Negative)
--- NOTE | 2024-12-24 12:07 | CON.INTV ---
Consultation
Consultation Request
Date/Time Consultation Requested: 12/24/2024 - 1034
Date/Time Consultation Performed: 12/24/2024 - 1054
Requesting Provider: Tammy Lebron NP
Performing Provider: Dr. Powell
Reason for Consultation: s/p SAVR, TV replacement + ELAA
Medical History
-
Chief Complaint: Severe back pain
History of Present Illness:
39-year-old tobacco smoker male with a past medical history of alcohol abuse, IV drug abuse (no use since June 2023), and history of of endocarditis x 3 (last episode May 2017) presents with back pain X 2 weeks. 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 Went to urgent care and then was sent to [facility] on 12/12/2024. Patient also admitted to having shortness of breath with fatigue. CT chest at the time showed a left subsegmental PE
and IV heparin was started. LV appeared dilated and RV dysfunction was out of proportion to the pulmonary emboli clot burden. An echo was performed on 12/14/2024 showing an echodensity on the aortic valve as well as the LVOT, with severe AI,
moderate�severe TR and dilated LV with LVEF 37%. Blood cultures were positive in the <24 hours for GPC's. Apparently, the patient had his teeth pulled between April 2024 through August 2024 and was supposed to get dentures in the near future.
They also will plan to get an MRI of his spine at [facility] but this was never done. Vancomycin started and he was transferred to [facility] for further evaluation for valve replacement. Once he arrived, infectious disease was consulted and he
was continued on empiric vancomycin. Blood cultures drawn here between 12/16 and 12/19 grew Staphylococcus epidermidis. CTA chest, abdomen, pelvis on 12/17/2024 showed suspected aortic valve vegetations with a tiny pericardial effusion vs pericardial
thickening, with suspected to splenic infarcts, and pulmonary nodules with suspected septic emboli. MRI thoracic + lumbar spine imaging performed on 12/18/2024, with possible discitis/mild osteomyelitis of L5-S1, with no evidence for discitis or OM
of the thoracic spine. Transthoracic echo on 12/17/2024 showed an LVEF at 45-50% with suspected basal inferior hypokinesis, with normal RV size and function, with mobile echodensities at the junction of the anterior leaflet of the mitral valve in the
LVOT, as well as a moderately sized highly mobile vegetation on the noncoronary cusp of the aortic valve measuring 1.2 cm x 0.53 cm with severe AI, and also a small mobile echodensity on the tricuspid valve with moderate to severe eccentric TR with
a PASP of 30 mmHg. LAURIE on 12/18 confirmed a 1.5 cm x 0.6 cm large highly mobile echodensity on the aortic valve, which appeared to be associated with the LVOT, with severe AI and a calcified echodensity measuring 0.9 cm x 0.3 cm associated with the
tricuspid valve, with severe TR. Cardiothoracic surgery reviewed these findings with the patient and today underwent surgical aortic valve replacement with extensive debridement of the anterior leaflet of the mitral valve on the ventricular aspect,
chordal sparing tricuspid valve replacement and left atrial appendage exclusion. There were no complications, and he was transferred to the CVICU postoperatively with [employer] services consulted for additional management/recommendations.
When I saw the patient, he was intubated on SIMV 16/500/40%/5, with PIP 15 cmH2O, VTe 518 cc in breathing at 16 breaths/min. Heart rate currently 76, BP via A-line 108/67, PAP 31/28, CO/CI: 4.57/2.27, respectively, and saturating 99%. Currently on
insulin drip at 3.5 units/hr and Precedex at 0.3 mcg/kg/hr.
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
PSHx: Noncontributory
Past Medical History
Past Medical History: Other (Above as per HPI)
Past Surgical History: Other (Above as per HPI)
Social History
Tobacco: Smoker
Alcohol: Daily (2-3 beers daily)
Drug: Former User (History of heroin abuse, sober since 06/2023)
Employment: Employed
Family History
Family History: Reviewed & Not Pertinent
Allergies / Home Medications
Allergies
Allergy/AdvReac Type Severity Reaction Status Date / Time
No Known Allergies Allergy Unverified 12/16/24 16:27
Review of Systems
-
Unable to Obtain full review of systems at this time due to: Patient Intubation
Vitals / Labs / Diagnostic Testing
Vital Signs
Temp Pulse Resp BP Pulse Ox
96.6 F L 67 16 118/52 99
12/24/24 12:00 12/24/24 11:55 12/24/24 12:00 12/24/24 06:00 12/24/24 12:00
Laboratory Results
12/24/24
04:50
APTT 96.1 H
Microbiology
12/16/24 23:46 Blood/Venous Blood Culture - Final
Staphylococcus epidermidis
12/16/24 23:46 Blood/Venous Gram Stain - Final
12/19/24 16:26 Blood/Venous Blood Culture - Preliminary
Staphylococcus epidermidis
12/19/24 16:26 Blood/Venous Gram Stain - Preliminary
12/19/24 08:32 Blood/Venous Blood Culture - Preliminary
Staphylococcus epidermidis
12/19/24 08:32 Blood/Venous Gram Stain - Preliminary
12/16/24 22:52 Blood/Venous Blood Culture - Final
Staphylococcus epidermidis
12/16/24 22:52 Blood/Venous Gram Stain - Final
Diagnostic Testing:
Physical Exam
-
HEENT: Normocephalic, Anicteric and Other (ETT in place)
Cardiovascular: S1/S2 and Peripheral Edema (negative)
Respiratory: Wheeze (negative), Rales (negative), Rhonchi (negative), Non-Labored Respirations and Other (Mechanical breath sounds heard bilaterally)
GI: Soft, Non Distended, Non Tender and Normal Bowel Sounds
Neurology: Tremors (negative) and Other (Sedated)
Skin: Warm and Dry
General: Respiratory Distress (negative), Comfortable, Chills (negative) and Sweats (negative)
Assessment
-
Assessment: 39-year-old tobacco smoker male with a past medical history of alcohol abuse, IV drug abuse (no use since June 2023), and history of of endocarditis x 3 (last episode May 2017) presents with back pain X 2 weeks. 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 Went to urgent care and then was sent to [facility] on 12/12/2024. Patient also admitted to having shortness of breath with fatigue. CT chest at the time showed a left
subsegmental PE and IV heparin was started. LV appeared dilated and RV dysfunction was out of proportion to the pulmonary emboli clot burden. An echo was performed on 12/14/2024 showing an echodensity on the aortic valve as well as the LVOT, with
severe AI, moderate�severe TR and dilated LV with LVEF 37%. Blood cultures were positive in the <24 hours for GPC's. Apparently, the patient had his teeth pulled between April 2024 through August 2024 and was supposed to get dentures in the
near future. They also will plan to get an MRI of his spine at [facility] but this was never done. Vancomycin started and he was transferred to [facility] for further evaluation for valve replacement. Once he arrived, infectious disease was
consulted and he was continued on empiric vancomycin. Blood cultures drawn here between 12/16 and 12/19 grew Staphylococcus epidermidis. CTA chest, abdomen, pelvis on 12/17/2024 showed suspected aortic valve vegetations with a tiny pericardial effusion
vs pericardial thickening, with suspected to splenic infarcts, and pulmonary nodules with suspected septic emboli. MRI thoracic + lumbar spine imaging performed on 12/18/2024, with possible discitis/mild osteomyelitis of L5-S1, with no evidence for
discitis or OM of the thoracic spine. Transthoracic echo on 12/17/2024 showed an LVEF at 45-50% with suspected basal inferior hypokinesis, with normal RV size and function, with mobile echodensities at the junction of the anterior leaflet of the
mitral valve in the LVOT, as well as a moderately sized highly mobile vegetation on the noncoronary cusp of the aortic valve measuring 1.2 cm x 0.53 cm with severe AI, and also a small mobile echodensity on the tricuspid valve with moderate to
severe eccentric TR with a PASP of 30 mmHg. LAURIE on 12/18 confirmed a 1.5 cm x 0.6 cm large highly mobile echodensity on the aortic valve, which appeared to be associated with the LVOT, with severe AI and a calcified echodensity measuring 0.9 cm x 0.3
cm associated with the tricuspid valve, with severe TR. Cardiothoracic surgery reviewed these findings with the patient and on 12/24/2024, the pt underwent surgical aortic valve replacement with extensive debridement of the anterior leaflet of the
mitral valve on the ventricular aspect, chordal sparing tricuspid valve replacement and left atrial appendage exclusion. There were no complications, and he was transferred to the CVICU postoperatively with [employer] services consulted for
additional management/recommendations.
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
Impression:
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
chordal sparing tricuspid valve replacement (33 mm bioprosthesis), surgical aortic valve replacement (27 mm bioprosthesis), and left atrial appendage exclusion with 50 mm device (POD #0)
#CONS bacteremia
#L5-S1 discitis
#Acute anemia due to above
#Acute on chronic systolic and diastolic congestive heart failure
#Osteomyelitis and splenic infarcts and abscess with suspected septic emboli/pulmonary nodules
#History of endocarditis x 3
#Acute PE of the left lung (diagnosed at [facility])
#Alcohol abuse
#History of IVDA
#Tobacco abuse
Plan:
Ventilator settings reviewed
FiO2 will be weaned to maintain SpO2 >90-94%
Minute ventilation will be adjusted
Arterial blood gases will be monitored
Spontaneous breathing trial will be attempted with hopeful extubation after anesthesia/sedation wear off
prn nebulized bronchodilators - not currently bronchospastic
Pulmonary artery catheter parameters will be followed
Pressors/antihypertensive/inotropes/diuretics will be provided as needed
Maintain MAP>65
Replete electrolytes with K>4, Mg>2
Continue with antibiotics as per ID
Continue ASA, metoprolol and amiodarone
Monitor chest tube output (mediastinal chest tubes x 2)
Monitor hemoglobin
Monitor platelet count and coags
Transfuse blood products as needed to maintain Hb>7g/dL, plt>50k (given post-operative status)
CT surgery managing chest tubes
Monitor blood sugar to maintain euglycemia with goal BG 110-140
Insulin drip per protocol
Aspiration precautions
Nicotine patch
VAP prevention protocol
DVT prophylaxis
Early nutrition
Early mobilization
Continue CVICU level care for this critically ill patient.
Critical care statement: A total of 41 minutes of critical care time was provided for this patient today. This includes management of ventilator, spontaneous breathing trial, arterial blood gases, pressors, of unstable vital signs, evaluation of the
patient at bedside, reviewing the patient's pertinent medical records including radiographs, microbiology, laboratory evaluations, and discussion with primary team and critical care nursing.
[2024-12-24 12:08] LABS: B.E. 2.4 mmol/L; HCO3 27.8 mmol/L (21-28); O2 Saturation % 99.4 % (94-98); PCO2 46 mmHg (35-48); PO2 130 mmHg (83-108); Potassium 3.7 mMOL/L (3.5-5.1); Sodium 137 mMOL/L (136-145); pH 7.39 (7.35-7.45)
[2024-12-24 12:17] LABS: Hematocrit 29.1 % (39.0-52.0); Hemoglobin 10.4 g/dL (13.0-18.0); Platelet Count 169 10^3/uL (130-400)
[2024-12-24 12:18] LABS: INR 1.25; Mixed Venous O2 Saturation 68.6 %; PT 16.2 Sec (11.4-14.6)
[2024-12-24 12:19] LABS: APTT 36.5 Sec (23.4-35.0)
[2024-12-24] MEDS: KCL 50 IV ×2 (12:20→13:30)
[2024-12-24 12:21] LABS: Blood Urea Nitrogen 23 mg/dl (9-20); Estimated Creatinine Clearance 114 ml/min; Glucose 119 mg/dl (70-99); Magnesium 2.8 mg/dl (1.6-2.3)
[2024-12-24] MEDS: ANCEF 10 IV ×3 (12:21→15:38)
[2024-12-24] MEDS: NSS 500 IV (12:23)
[2024-12-24] MEDS: LR 250 ML IV (12:46)
[2024-12-24 12:51] LABS: Glucose - Point of Care 157 mg/dl (70-99)
--- NOTE | 2024-12-24 13:08 | W.PN.ID1 ---
Date of Service
Date of Service: December 24, 2024
Today's Communication
Continue antibiotics.
Assessment / Plan
Endocarditis
Bacteremia with coag negative staph
L5-S1 discitis
Elevated CRP
Hx prior endocarditis (x 3)
Recommendations:
Blood cultures positive for Staph epidermidis, which match isolates recovered at OSH.
Staph. epi. noted to be MSSE.
Continue cefazolin 2 g IV every 8 hours. Patient will require 6-week course of therapy. Infusion sheet given to Police Manager
Monitor white count and temperature curve.
����������������������������������������������������������
Chief Complaint
-: Bacteremia and Other (Endocarditis; lumbar discitis)
Subjective / Review of Systems
Patient seen and examined. S/p aortic valve replacement, debridement of the anterior leaflet mitral valve and tricuspid valve replacement.
Vital Signs / Physical Exam
Vital Signs
Vital Signs
Temp Pulse Resp BP Pulse Ox
97.5 F 70 16 118/52 99
12/24/24 13:00 12/24/24 13:00 12/24/24 13:00 12/24/24 06:00 12/24/24 13:00
Physical Exam
Constitutional: Acutely Ill and Non-toxic
Head: Other (ET tube in place.)
Cardiovascular: S1/S2; Negative S3/S4
Gastrointestinal: Non Distended and Normal Bowel Sounds
Genito-Urinary: [place]
Skin: Warm and Dry; Negative Rash or Jaundice
Neurological: Other (Sedated)
Objective Data
Lab Data
Lab Results
12/24/24 11:51
ESR 34 mm/hour (0-20) H 12/18/24 05:08
PT 16.2 Sec (11.4-14.6) H 12/24/24 11:51
INR 1.25 12/24/24 11:51
APTT 36.5 Sec (23.4-35.0) H 12/24/24 11:51
Estimated Creat Clear 114 ml/min 12/24/24 11:51
Total Bilirubin 0.8 mg/dl (0.2-1.3) 12/21/24 03:50
AST 25 U/L (17-59) 12/21/24 03:50
ALT 28 U/L (0-50) 12/21/24 03:50
Alkaline Phosphatase 103 U/L (38-126) 12/21/24 03:50
C-Reactive Protein 52.60 mg/L (0.0-10.00) H 12/17/24 02:34
Most recent labs reviewed.
Micro Results:
12/24/24 08:50 Fungal Culture - Pending
Heart
12/24/24 08:50 Wound Culture - Pending
Valve Gram Stain - Pending
12/24/24 08:50 Anaerobic Culture - Pending
Heart
12/24/24 08:50 Fungal Culture - Pending
Heart
12/24/24 08:50 Wound Culture - Pending
Valve Gram Stain - Pending
12/24/24 08:50 Anaerobic Culture - Pending
Heart
12/23/24 17:02 Blood Culture - Pending
Blood/Venous
12/23/24 15:59 Blood Culture - Pending
Blood/Venous
12/16/24 23:46 Blood Culture - Final
Blood/Venous Staphylococcus epidermidis
Gram Stain - Final
12/19/24 16:26 Blood Culture - Preliminary
Blood/Venous Staphylococcus epidermidis
Gram Stain - Preliminary
12/19/24 08:32 Blood Culture - Preliminary
Blood/Venous Staphylococcus epidermidis
Gram Stain - Preliminary
12/16/24 22:52 Blood Culture - Final
Blood/Venous Staphylococcus epidermidis
Gram Stain - Final
12/16/24 20:09 MRSA Screen - Final
Nose No Methicillin Resistant Staphylococcus aureus isolated.
12/14/20241734
Blood/Venous Blood Culture :
Coag negative staph
12/14/2024 173
Blood/Venous Blood Culture :
Coag negative staph
Blood Culture 12/20/24-1015
1. Staphylococcus epidermidis
M.I.C. RX
--------- ---
Amoxicillin/Potas. Clavulanate <=4/2 S
Ampicillin <=2 R
Clindamycin <=0.5 S
Gentamicin <=4 S
Erythromycin >4 R
Levofloxacin <=1 S
--> Oxacillin <=0.25 S
Tetracycline <=4 S
Trimethoprim/Sulfamethoxazole 2/38 S
Vancomycin 1 S
Imaging:
12/18/2024 ECHO (LAURIE): EF approximately 45%. Trileaflet aortic valve with a large highly mobile echodensity noted also concern for anterior leaflet mitral valve vegetation. Please see full dictation for additional detail
12/18/2024 MRI thoracic and lumbar spine: In the thoracic spine there is no evidence of discitis or osteomyelitis. No epidural abscess or focal disc protrusion. On the lumbar MRI there is disc space narrowing at L5-S1 which is suspicious for
discitis and mild osteomyelitis. No epidural collection or abscess is noted.
12/17/2024 CT chest/abdomen/pelvis: Possible aortic valve vegetation. 2 splenic hypodense wedge-shaped areas suspicious for splenic infarcts. Pulmonary nodules also noted suspicious for possible septic emboli. Please see full dictation for
additional detail.
ECHO at [facility]: EF 37% with Severe AI and mod to severe TR with echodensity of AV and LVOT appearing adherent onto the ventricular side of the base of the anterior mitral valve leaflet
--- NOTE | 2024-12-24 13:30 | W.PN.CARDCBS ---
Addendum entered and electronically signed by King Ferrara MD 12/24/24 17:24:
Patient seen postop, extubated, only on insulin, awake, conversant. Complains of some discomfort but looks surprisingly well
99/65, pulse 70, respirations are 11, afebrile, sats are 99%, lungs are diminished in bases regular rate rhythm no rubs, incision well-healed, abdomen benign, no edema, pulses palpable
PMH/PSH: See below
Current meds: Reviewed
Chest x-ray chest tubes in place, normal-appearing lungs, endotracheal tube
Postop EKG: Sinus rhythm, right bundle branch block, anterior T wave inversions, PVCs with fusion, consider electrolyte abnormalities
Hemoglobin 11.3,
BUN and creatinine 23 and 0.9
Impression:
Status post 27 mm Valenzuela Inspiris Resilia aortic valve, 33 mm Valenzuela Inspiris Resilia mitral valve placed in tricuspid position, debridement of mitral valve, left atrial appendage clip 12/24/2024
Rest of diagnoses - see below, as per Lor. Reviewed in detail and agree, unless otherwise specified below
Plan:
He looks remarkably well status post complex valve surgery for endocarditis
Appreciate efforts of CT surgical team
Continue supportive care
We will continue to follow
Original Note:
Today's Communication / Plan
-
continue post op care
IV abx per ID
IV heparin to resume in AM
Impression / Plan
-
Primary Manager Mortgage: ATC
Assessment:
Presentation to [facility] with back pain
Leukocytosis
Left pulmonary embolus started on anticoagulation at [facility]
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
Severe AI and mod to severe TR with echodensity of AV and LVOT by echo at [facility] status post bioprosthetic SAVR, extensive debridement of anterior leaflet of mitral valve, chordal sparing bioprosthetic TVR, LENCHO clip 12/24/2024
Cardiomyopathy, EF 37% by echo at [facility]
History of endocarditis x3 ~2017, treated with IV abx
Clot in setting of above requiring thrombectomy
History of IVDA (heroin, sober since 06/2023)
Multiple dental extractions over last several months
Tobacco use
Daily ETOH use (2-3 beers daily)
ECHO at [facility]: EF 37% with Severe AI and mod to severe TR with echodensity of AV and LVOT appearing adherent onto the ventricular side of the base of the anterior mitral valve leaflet
ECHO 12/17/24: EF 45-50%, possible basal inferior hypokinesis, stage 1 diastolic dysfunction, mobile echodensities at junction of anterior leaflet of mitral valve in LVOT, mod sized highly mobile echodensity of NCC, severe AR, small mobile echodensity
suspicious for endocarditis on tricuspid valve with moderate to severe TR, PAP 30 mmHg
LAURIE 12/18/2024: EF 45 to 50%. Large highly mobile echodensity (1.5 cm x 0.6 cm) suspected to be vegetation near anterior leaflet of mitral valve. No mitral regurgitation. Also appears to have vegetation associated with aortic valve with leaflet
perforation at RCC and some involvement of the NCC associated with severe AI. Calcified ehodensity (0.9 cm x 0.3 cm) associated with the tricuspid valve is visualized. Suspect calcified vegetation. Severe tricuspid regurgitation.
Plan:
-39-year-old gentleman with history of prior IV drug abuse, sober since June 2023 presents with left-sided pulmonary embolism and MSSE bacteremia s/p LAURIE 12/18/24 with EF 45 to 50%, large highly mobile echodensity of aortic valve appears to be
associated with LVOT near anterior leaflet of mitral valve, no mitral valve regurgitation, another vegetation associated with aortic valve, leaflet perforation at RCC and also some involvement of NCC, severe AR, calcified echodensity associated of
tricuspid valve with severe TR
-status post bioprosthetic SAVR, extensive debridement of anterior leaflet of mitral valve, chordal sparing bioprosthetic TVR, LENCHO clip 12/24/2024
-intubated, sedated
-off pressors, on insulin @3.5
-CI 2.27
-EKG sinus rhythm with fusion complexes, PACs, aberrant conduction, right bundle branch block new compared to prior from 12/22
-continue post op care
-plan to resume IV heparin in AM for PE, eventual transition to eliquis
-continue IV abx. appreciate ID input
-Patient has a history of cardiomyopathy 45-50% by LAURIE 12/18, by intraop LAURIE EF 50-55%. Resume guideline directed medical therapy postoperatively as able
-spine MRI with evidence of possible discitis/mild osteomyelitis with no abscess. Neurosurgery evaluation appreciated. no surgical intervention at this time but continue treatment with IV abx. Recommended surveillance imaging studies MRI of lower
spine with and without contrast in 6 weeks to reassess presumed osteodiscitis.
-tobacco/ETOH cessation
-d/w nursing, CT surgery PROCESS CONTROL MANAGER
PREADMIT DATA:
-Patient presented to [facility] with back pain and was found to have leukocytosis. Then by imaging noted to have left PE with evidence of RV dysfunction out of proportion to degree of pulmonary embolus burden. Underwent echocardiogram
which showed EF of 37% as well as severe AI and moderate to severe TR with echodensity of aortic valve as well as left ventricular outflow tract. Patient was then transferred to [facility] for CT surgical evaluation for endocarditis.
Progress Note - Manager Mortgage
Subjective
Date of Service: December 24, 2024
intubated, sedated
Objective
Labs:
12/24/24 11:51
Labs
Hgb 10.4 g/dL (13.0-18.0) L D 12/24/24 11:51
Hct 29.1 % (39.0-52.0) L 12/24/24 11:51
Plt Count 169 10^3/uL (130-400) D 12/24/24 11:51
PT 16.2 Sec (11.4-14.6) H 12/24/24 11:51
INR 1.25 12/24/24 11:51
APTT 36.5 Sec (23.4-35.0) H 12/24/24 11:51
Sodium 139 mmol/L (135-145) 12/23/24 05:02
Potassium 4.4 mmol/L (3.5-5.1) 12/23/24 05:02
BUN 23 mg/dl (9-20) H 12/24/24 11:51
Creatinine 0.9 mg/dL (0.7-1.3) 12/24/24 11:51
Glucose 119 mg/dl (70-99) H 12/24/24 11:51
Vital Signs and I&O:
Vital Signs
Temp Pulse Resp BP Pulse Ox
97.5 F 70 16 118/52 99
12/24/24 13:00 12/24/24 13:00 12/24/24 13:00 12/24/24 06:00 12/24/24 13:00
Vital Signs
Temp Pulse Resp BP Pulse Ox
97.5 F 70 16 118/52 99
12/24/24 13:00 12/24/24 13:00 12/24/24 13:00 12/24/24 06:00 12/24/24 13:00
Intake & Output
12/22/24 12/23/24 12/24/24 12/25/24
07:59 07:59 07:59 07:59
Intake Total 1443 / 1443 600 / 600 414.6 / 414.6
Output Total 290 / 290
Balance 1443 / 1443 600 / 600 124.6 / 124.6
Physical Exam
Physical Exam
GEN: No distress, intubated, sedated
HEENT: supple, mmm
LUNGS: CTA B/L, no wheezes
CV: Reg, S1/S2, no murmur
EXT: No cyanosis, clubbing, edema
NEURO: Gross non-focal
SKIN: Warm, pink, dry. No rash. Sternotomy incision c/d/i. CTs in place
[2024-12-24 14:06] LABS: Glucose - Point of Care 107 mg/dl (70-99)
--- NOTE | 2024-12-24 14:25 | PTCARENOTE ---
index >2, BP stable off levo and dobut. precedex titrated down, pt arousing and following commands. placed on CPAP at 1425
[2024-12-24] MEDS: TYLENOL PO (14:36)
[2024-12-24 15:00] LABS: Glucose - Point of Care 118 mg/dl (70-99)
[2024-12-24 15:06] LABS: B.E. - POC 1.5 mmol/L; Blood Urea Nitrogen - POC 20 mg/dl (3-120); Chloride - POC 107 mmol/L (96-111); Creatinine - POC 0.81 mg/dl (0.3-1.0); Glucose - POC 90 mg/dl (70-99); HCO3 - POC 26 mmol/L (21-28); Hematocrit - POC 32 % PCV (42-52); Hemodilution- POC Yes; Hemoglobin Calculated - POC 10.7; Ionized Calcium - POC 1.15 mmol/L (1.15-1.33); Lactate - POC 1.28 mmol/L (0.36-0.75); O2 Saturation %Calculated-POC 99.6 % (94-98); PCO2 - POC 38 mmHg (35-48); PO2 - POC 180 mmHg (83-108); Sodium - POC 142 mmol/L (136-145); Specimen Type - POC Arterial; pH - POC 7.44 (7.35-7.45)
[2024-12-24] MEDS: TORADOL 15 MG IV (15:06)
[2024-12-24] MEDS: CALCIUM GLUCONATE 100 IV (15:08)
--- NOTE | 2024-12-24 15:12 | RESPNOTE ---
13:10 patient extubated and placed on 6L nasal cannula 98%
[2024-12-24 15:19] LABS: Hematocrit 31.2 % (39.0-52.0); Hemoglobin 11.3 g/dL (13.0-18.0); Platelet Count 209 10^3/uL (130-400)
--- NOTE | 2024-12-24 15:19 | PTCARENOTE ---
EPOC gas good, orders to extubate. extubated at 1505 to 6L NC w/o incident. pt able to speak name. complaining of thirst and pain, toradol given. education about introduction of ice chips and water provided. family now at bedside
[2024-12-24] MEDS: OFIRMEV 100 IV (15:36)
[2024-12-24 16:03] LABS: Glucose - Point of Care 122 mg/dl (70-99)
[2024-12-24] MEDS: LOW STRENGTH ASPIRIN 81 MG PO (16:09)
--- NOTE | 2024-12-24 16:09 | CM ---
Priced Eliquis thru patient's insurance plan, . Estimated cost of Eliquis is $0.
[2024-12-24] MEDS: PACERONE 200 MG PO ×2 (17:04→22:27)
[2024-12-24] MEDS: NEURONTIN 600 MG PO ×2 (17:05→22:27)
[2024-12-24] MEDS: ROXICODONE 5 MG PO (17:23)
--- NOTE | 2024-12-24 17:41 | PTCARENOTE ---
pt c/o severe pain, see mar for pain medicine administrations. Vital signs stable, no other change in assessment .
[2024-12-24 18:04] LABS: Glucose - Point of Care 114 mg/dl (70-99)
--- NOTE | 2024-12-24 18:07 | PTCARENOTE ---
index 2.14, Dobut started at [address] Pugh, to stay on overnight.
--- NOTE | 2024-12-24 19:11 | PTCARENOTE ---
BP elevated past 130s, CTPA notified, starting cardene per CTPA
[2024-12-24 20:05] LABS: Glucose - Point of Care 103 mg/dl (70-99)
[2024-12-24] MEDS: SENOKOT-S PO (20:56)
--- NOTE | 2024-12-24 21:35 | PTCARENOTE ---
report given to Citlali BRUCE
--- NOTE | 2024-12-24 22:00 | PTCARENOTE ---
Received patient from previous RN. AOx4, pleasant, drowsy. NSR on CM, AV wires present, see worklist for settings; box powered on, wires insulated; heart tones audible, rub auscultated, pulses palpable throughout, no edema. On 2LNC, clear on RA,
CTx2 to -20 cm wall suction, no air leak, tidaling, or crepitus noted. Abdomen SNT, normoactive, tolerating sips and chips. Appiah draining clear yellow urine. All surgical sites intact. RIJ Cordis/Chuy Keisha catheter at 45; L radial art line, PIV
x2, all applicable lines leveled, zeroed and flushed. On dobutamine, Cardene, KVOs, and insulin.
[2024-12-24 22:02] LABS: Glucose - Point of Care 135 mg/dl (70-99)
[2024-12-24] MEDS: TYLENOL 1000 MG PO (22:27)
[2024-12-25] VITALS (39 sets, daily range): BP systolic 82–116; BP diastolic 50–80; PULSE 86; O2SAT 95; BMI 26.1
[2024-12-25 00:28] LABS: Glucose - Point of Care 88 mg/dl (70-99)
[2024-12-25] MEDS: ROXICODONE 5 MG PO ×5 (00:31→21:38)
[2024-12-25] MEDS: ANCEF 10 IV ×3 (00:31→16:17)
[2024-12-25 02:07] LABS: Glucose - Point of Care 113 mg/dl (70-99)
[2024-12-25] MEDS: DILAUDID 0.5 MG IV ×5 (02:13→21:40)
[2024-12-25] MEDS: CARDENE 200 IV (02:23)
--- NOTE | 2024-12-25 04:00 | PTCARENOTE ---
Pain controlled per patient, resting comfortably in bed, attempting to sleep between care. Dobutamine off per CVPA, pending CO/CI in one hour.
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
[2024-12-25 04:09] LABS: Glucose - Point of Care 103 mg/dl (70-99)
[2024-12-25 04:39] LABS: Hematocrit 31.2 % (39.0-52.0); Hemoglobin 10.8 g/dL (13.0-18.0); Mean Corp Hgb Conc. 34.6 g/dL (33.0-37.0); Mean Corpuscular Hgb 31.9 pg (27.0-31.0); Platelet Count 232 10^3/uL (130-400); Red Blood Cell Count 3.39 10^6/uL (4.70-6.10); Red Cell Dist. Width 12.3 % (11.5-14.5); White Blood Cell Count 13.1 10^3/uL (4.8-10.8)
[2024-12-25 04:57] LABS: Blood Urea Nitrogen 22 mg/dl (9-20); Calcium 8.8 mg/dl (8.4-10.2); Carbon Dioxide 25 mmol/L (22-30); Chloride 106 mmol/L (98-107); Estimated Creatinine Clearance > 125 ml/min; Glucose 90 mg/dl (70-99); Magnesium 2.1 mg/dl (1.6-2.3); Potassium 4.5 mmol/L (3.5-5.1); Sodium 138 mmol/L (135-145); eGFR > 60.00
[2024-12-25] MEDS: TYLENOL 1000 MG PO ×3 (05:27→21:38)
[2024-12-25 06:08] LABS: Glucose - Point of Care 102 mg/dl (70-99)
--- NOTE | 2024-12-25 07:44 | W.PN.ANS.POP ---
Anesthesia Post Operative
- Anesthesia Post Op Note
Vital Signs Stable-See Nursing Note: Yes (Patient weaned from all vasoactive support)
Airway Patent: Yes (3L NC)
Adequate Pain Control: Yes (Pt verbalizes relief with IV pain medications )
Change in Mental Status: No
Current Postoperative Nausea & Vomiting: No (Denies c/o)
Anesthesia Complications: No
General Anesthetic Recall: No
Unplanned Admission: No
Post Op Hydration Adequate: Yes
--- NOTE | 2024-12-25 08:00 | PTCARENOTE ---
pt received from previous RN, oriented, in bed. SR on the monitor, HR 80s. A&V wires in place, insulated. SBP 90-110s. PAP 20s/10s, CVP ~10, CI >2. palpable pulses, trace ankle edema. pt on 2LNC, 100% POX. lungs diminished in bases. IS encouraged.
CTx2, no air leak or crepitus noted. pt abdomen s/n, denies n/v. tolerating clears. DTV post summers removal. sternal incision ETHANOL OPERATOR, approximated. chest tube site c/d/i. RIJ cordis/swan maintained. L radial Mariah positional, dampened. PIV x2. insulin
gtt running as ordered. see worklist for VS, I&O, and assessment.
--- NOTE | 2024-12-25 08:22 | W.PN.INTV ---
Today's Communication / Plan
Recommendations
Up OOB as tolerated
Pain control
Encourage status prominent
Antibiotics per ID
Amiodarone per cardiology
Aspirin + metoprolol
Nicotine patch
Being weaned off insulin drip today - maintain goal BG 110�140
Patient being prepared for downgrade to CVICU�telemetry status. No additional recommendations at this time. Reinsurance Claims Analyst/Pulmonary service will now sign off. Please reconsult if there are any additional questions/concerns, or if patient's
respiratory status deteriorates.
Assessment
-
Assessment: 39-year-old tobacco smoker male with a past medical history of alcohol abuse, IV drug abuse (no use since June 2023), and history of of endocarditis x 3 (last episode May 2017) presents with back pain X 2 weeks. 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 Went to urgent care and then was sent to [facility] on 12/12/2024. Patient also admitted to having shortness of breath with fatigue. CT chest at the time showed a left
subsegmental PE and IV heparin was started. LV appeared dilated and RV dysfunction was out of proportion to the pulmonary emboli clot burden. An echo was performed on 12/14/2024 showing an echodensity on the aortic valve as well as the LVOT, with
severe AI, moderate�severe TR and dilated LV with LVEF 37%. Blood cultures were positive in the <24 hours for GPC's. Apparently, the patient had his teeth pulled between April 2024 through August 2024 and was supposed to get dentures in the
near future. They also will plan to get an MRI of his spine at [facility] but this was never done. Vancomycin started and he was transferred to [facility] for further evaluation for valve replacement. Once he arrived, infectious disease was
consulted and he was continued on empiric vancomycin. Blood cultures drawn here between 12/16 and 12/19 grew Staphylococcus epidermidis. CTA chest, abdomen, pelvis on 12/17/2024 showed suspected aortic valve vegetations with a tiny pericardial effusion
vs pericardial thickening, with suspected to splenic infarcts, and pulmonary nodules with suspected septic emboli. MRI thoracic + lumbar spine imaging performed on 12/18/2024, with possible discitis/mild osteomyelitis of L5-S1, with no evidence for
discitis or OM of the thoracic spine. Transthoracic echo on 12/17/2024 showed an LVEF at 45-50% with suspected basal inferior hypokinesis, with normal RV size and function, with mobile echodensities at the junction of the anterior leaflet of the
mitral valve in the LVOT, as well as a moderately sized highly mobile vegetation on the noncoronary cusp of the aortic valve measuring 1.2 cm x 0.53 cm with severe AI, and also a small mobile echodensity on the tricuspid valve with moderate to
severe eccentric TR with a PASP of 30 mmHg. LAURIE on 12/18 confirmed a 1.5 cm x 0.6 cm large highly mobile echodensity on the aortic valve, which appeared to be associated with the LVOT, with severe AI and a calcified echodensity measuring 0.9 cm x 0.3
cm associated with the tricuspid valve, with severe TR. Cardiothoracic surgery reviewed these findings with the patient and on 12/24/2024, the pt underwent surgical aortic valve replacement with extensive debridement of the anterior leaflet of the
mitral valve on the ventricular aspect, chordal sparing tricuspid valve replacement and left atrial appendage exclusion. There were no complications, and he was transferred to the CVICU postoperatively with Reinsurance Claims Analyst services consulted for
additional management/recommendations.
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
Impression:
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
chordal sparing tricuspid valve replacement (33 mm bioprosthesis), surgical aortic valve replacement (27 mm bioprosthesis), and left atrial appendage exclusion with 50 mm device (POD #1)
#CONS bacteremia
#L5-S1 discitis
#Acute anemia due to above
#Acute on chronic systolic and diastolic congestive heart failure
#Osteomyelitis and splenic infarcts and abscess with suspected septic emboli/pulmonary nodules
#History of endocarditis x 3
#Acute PE of the left lung (diagnosed at [facility])
#Alcohol abuse
#History of IVDA
#Tobacco abuse
Plan:
Patient successfully extubated yesterday afternoon to 6 L/min nasal cannula, and is currently on room air, saturating 94% and breathing comfortably
Still has sternal/upper abdominal discomfort
Maintain SpO2 >90-94%
prn nebulized bronchodilators - not currently bronchospastic
Encourage incentive spirometer as tolerated, aiming for q1hr while awake
Removal of R�IJ cordis per CT surgery team
Pressors/antihypertensive/inotropes/diuretics will be provided as needed
Maintain MAP>65
Replete electrolytes with K>4, Mg>2
Continue with antibiotics as per ID
Continue ASA, metoprolol and amiodarone
Monitor chest tube output (mediastinal chest tubes x 2)
Monitor hemoglobin
Monitor platelet count and coags
Transfuse blood products as needed to maintain Hb>7g/dL, plt>50k (given post-operative status)
CT surgery managing chest tubes
Monitor blood sugar to maintain euglycemia with goal BG 110-140
Insulin drip per protocol � plan to stop later today, at which point can start ISS to maintain BG goal as above
Aspiration precautions
Nicotine patch
DVT prophylaxis
Early nutrition
Early mobilization
Patient stable for downgrade to CVICU�telemetry status. No additional recommendations at this time. Reinsurance Claims Analyst/Pulmonary service will now sign off. Thank you for allowing us to be involved in the care of this patient. Please reconsult if there
are any additional questions/concerns, or if patient's respiratory status deteriorates.
Total time spent today was 57 minutes for this encounter. Time includes reviewing laboratory test/imaging results, reviewing pertinent medical records, obtaining and reviewing medical history, performing an appropriate exam, ordering medications,
tests and procedures. Time also includes documentation of this encounter, coordinating patient care and communicating with other healthcare professionals. Total time does not include separately billed tests performed on this date of service.
Subjective Dataa
Subjective Data
Date of Service:
Date of Service: December 25, 2024
Chief Complaint: Reinsurance Claims Analyst Follow Up
Subjective:
Patient was seen and evaluated today at bedside. Currently on insulin drip at 2.3 units/h. Heart rate 78, BP 91/50. He endorses substernal chest pain plus upper abdominal pain. Being weaned off insulin drip today. R�IJ cordis in place. He
denies SOB, nausea, fevers or chills.
Review of Systems
General: Other (Negative unless mentioned above)
Objective Data
Data Reviewed
Vital Signs / I&O / Oxygen:
Vital Signs
Temp Pulse Resp BP Pulse Ox
98.9 F 85 24 102/71 94
12/25/24 08:00 12/25/24 09:15 12/25/24 09:15 12/25/24 09:12 12/25/24 09:15
Intake and Output
12/24/24 12/25/24 12/26/24
06:59 06:59 06:59
Intake Total 1767.8 / 1819.1 84.6 / 84.6
Output Total 2613 / 2628
Balance -845.2 / -808.9 69.6 / 69.6
SaO2 [SIMV] 99
SaO2 94
Nasal Cannula flow liters per 2
minute
Physical Exam
General: Respiratory Distress (negative), Chills (negative) and Sweats (negative)
HEENT: Normocephalic and Anicteric
Cardiovascular: S1-S2 and Peripheral Edema (negative)
Respiratory: Wheeze (negative), Crackles (Bibasilar (L >R)), Rhonchi (negative), Non-Labored Respirations, Stridor (negative) and Chest Tube (Mediastinal chest tubes x 2)
GI: Soft, Non Distended, Non Tender and Normal Bowel Sounds
Neurology: Awake, Alert and Tremors (negative)
Skin: Warm, Dry, Cyanosis (negative) and Jaundice (negative)
Labs/Micro/Reports
Lab Data
12/25/24 04:13
12/25/24 04:13
Laboratory Results
12/24/24
11:51
PT 16.2 H
INR 1.25
APTT 36.5 H
pH 7.39
pCO2 46
pO2 130 H
HCO3 27.8
O2 Delivery Level Not Reportable
Microbiology
12/23/24 17:02 Blood/Venous Blood Culture - Preliminary
No Growth in 24 hours- Final report to follow
12/23/24 15:59 Blood/Venous Blood Culture - Preliminary
No Growth in 24 hours- Final report to follow
12/24/24 08:50 Valve Gram Stain - Preliminary
12/24/24 08:50 Valve Gram Stain - Preliminary
12/16/24 23:46 Blood/Venous Blood Culture - Final
Staphylococcus epidermidis
12/16/24 23:46 Blood/Venous Gram Stain - Final
12/19/24 16:26 Blood/Venous Blood Culture - Preliminary
Staphylococcus epidermidis
12/19/24 16:26 Blood/Venous Gram Stain - Preliminary
12/19/24 08:32 Blood/Venous Blood Culture - Preliminary
Staphylococcus epidermidis
12/19/24 08:32 Blood/Venous Gram Stain - Preliminary
12/16/24 22:52 Blood/Venous Blood Culture - Final
Staphylococcus epidermidis
12/16/24 22:52 Blood/Venous Gram Stain - Final
[2024-12-25 08:33] LABS: Glucose - Point of Care 105 mg/dl (70-99)
[2024-12-25] MEDS: NEURONTIN 600 MG PO ×3 (08:56→21:38)
[2024-12-25] MEDS: LIDOCAINE 4% PATCH 1 PATCH TOPICAL (08:56)
[2024-12-25] MEDS: LOW STRENGTH ASPIRIN 81 MG PO (08:56)
[2024-12-25] MEDS: MAGNESIUM OXIDE 500 MG PO ×2 (08:56→20:34)
[2024-12-25] MEDS: LOPRESSOR 12.5 MG PO ×2 (08:56→20:33)
[2024-12-25] MEDS: PACERONE 200 MG PO ×3 (08:56→21:38)
[2024-12-25] MEDS: SENOKOT-S 1 TABLET PO ×2 (08:56→20:34)
[2024-12-25] MEDS: PROTONIX 40 MG PO (08:56)
[2024-12-25] MEDS: BACTROBAN 2% OINTMENT 1 APPLIC NASAL ×2 (08:57→20:33)
--- NOTE | 2024-12-25 09:46 | PTCARENOTE ---
L mary brunner dc'd as ordered, THI velasquez dc'd as ordered. pt OOB to chair x2 assist. IS encouraged.
[2024-12-25] MEDS: TORADOL 15 MG IV (10:02)
[2024-12-25 10:09] LABS: Glucose - Point of Care 115 mg/dl (70-99)
[2024-12-25] MEDS: NSS IV (11:03)
[2024-12-25 12:08] LABS: Glucose - Point of Care 111 mg/dl (70-99)
--- NOTE | 2024-12-25 12:30 | PTCARENOTE ---
pt VSS, insulin gtt dc'd as ordered. oral hygiene performed, face washed. pt washed w/ CHG wipes, gown and linens changed. chest tube dressing changed. A&V wires insulated as ordered.
[2024-12-25] MEDS: FERRLECIT 110 MG IV (14:01)
--- NOTE | 2024-12-25 14:22 | W.PN.UPDATE ---
Update Note
Progress Note Update
No pacing required. Two epicardial atrial and 1 bipolar ventricular wire removed without difficulty. Bedrest x 1 hour and BP q15min x 4. Will begin IV Heparin 12/26.
--- NOTE | 2024-12-25 14:22 | W.PN.CARDCBS ---
Addendum entered and electronically signed by Gamal Mckay MD 12/25/24 14:33:
I saw and examined the patient.
The TYPE INSPECTOR or PA's note was reviewed and I agree with the note.
Comment: General: Well developed, well nourished in NAD.
Neck: Supple, no JVD, HJR, carotids +2 B/L, no bruits bilaterally.
Heart: Non displaced PMI, RRR, no murmurs, No S3, S4, no rubs.
Lungs: Scattered rhonchi
Sternal dressings noted
Extremities: No clubbing, cyanosis or edema bilaterally.
Neuro: Grossly nonfocal, awake, alert and oriented x3.
Remains in sinus rhythm. Stable postop status post aortic valve replacement as well as tricuspid valve replacement. Continue IV antibiotics. IV heparin to resume in a.m. for pulm embolism.
Original Note:
Today's Communication / Plan
-
Repeat blood cultures. Continue IV antibiotics
IV heparin for PE to resume in a.m.
Continue postop care
Impression / Plan
-
Primary Signal Operator Technical: ATC
Assessment:
Presentation to [facility] with back pain
Leukocytosis
Left pulmonary embolus started on anticoagulation at [facility]
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
Severe AI and mod to severe TR with echodensity of AV and LVOT by echo at [facility] status post bioprosthetic SAVR, extensive debridement of anterior leaflet of mitral valve, chordal sparing bioprosthetic TVR, LENCHO clip 12/24/2024
Cardiomyopathy, EF 37% by echo at [facility]
History of endocarditis x3 ~2017, treated with IV abx
Clot in setting of above requiring thrombectomy
History of IVDA (heroin, sober since 06/2023)
Multiple dental extractions over last several months
Tobacco use
Daily ETOH use (2-3 beers daily)
ECHO at [facility]: EF 37% with Severe AI and mod to severe TR with echodensity of AV and LVOT appearing adherent onto the ventricular side of the base of the anterior mitral valve leaflet
ECHO 12/17/24: EF 45-50%, possible basal inferior hypokinesis, stage 1 diastolic dysfunction, mobile echodensities at junction of anterior leaflet of mitral valve in LVOT, mod sized highly mobile echodensity of NCC, severe AR, small mobile echodensity
suspicious for endocarditis on tricuspid valve with moderate to severe TR, PAP 30 mmHg
LAURIE 12/18/2024: EF 45 to 50%. Large highly mobile echodensity (1.5 cm x 0.6 cm) suspected to be vegetation near anterior leaflet of mitral valve. No mitral regurgitation. Also appears to have vegetation associated with aortic valve with leaflet
perforation at RCC and some involvement of the NCC associated with severe AI. Calcified ehodensity (0.9 cm x 0.3 cm) associated with the tricuspid valve is visualized. Suspect calcified vegetation. Severe tricuspid regurgitation.
Plan:
-39-year-old gentleman with history of prior IV drug abuse, sober since June 2023 presents with left-sided pulmonary embolism and MSSE bacteremia s/p LAURIE 12/18/24 with EF 45 to 50%, large highly mobile echodensity of aortic valve appears to be
associated with LVOT near anterior leaflet of mitral valve, no mitral valve regurgitation, another vegetation associated with aortic valve, leaflet perforation at RCC and also some involvement of NCC, severe AR, calcified echodensity associated of
tricuspid valve with severe TR
-status post bioprosthetic SAVR, extensive debridement of anterior leaflet of mitral valve, chordal sparing bioprosthetic TVR, LENCHO clip 12/24/2024
- Remains in sinus rhythm on review of telemetry overnight
- Repeat blood cultures drawn 12/25. Continue IV antibiotics per ID
- Plan for IV heparin in a.m. for PE. Eventual transition to Eliquis when okay per surgery
- Continue postop care
- Continue OOB/I-S
-Patient has a history of cardiomyopathy 45-50% by LAURIE 12/18, by intraop LAURIE EF 50-55%. Resume guideline directed medical therapy postoperatively as able
-spine MRI with evidence of possible discitis/mild osteomyelitis with no abscess. Neurosurgery evaluation appreciated. no surgical intervention at this time but continue treatment with IV abx. Recommended surveillance imaging studies MRI of lower
spine with and without contrast in 6 weeks to reassess presumed osteodiscitis.
-tobacco/ETOH cessation
-d/w nursing, CT surgery TYPE INSPECTOR
PREADMIT DATA:
-Patient presented to [facility] with back pain and was found to have leukocytosis. Then by imaging noted to have left PE with evidence of RV dysfunction out of proportion to degree of pulmonary embolus burden. Underwent echocardiogram
which showed EF of 37% as well as severe AI and moderate to severe TR with echodensity of aortic valve as well as left ventricular outflow tract. Patient was then transferred to [facility] for CT surgical evaluation for endocarditis.
Progress Note - Signal Operator Technical
Subjective
Date of Service: December 25, 2024
Reports postoperative pain, being managed.
Objective
Labs:
12/25/24 04:13
12/25/24 04:13
Labs
Hgb 10.8 g/dL (13.0-18.0) L 12/25/24 04:13
Hct 31.2 % (39.0-52.0) L 12/25/24 04:13
Plt Count 232 10^3/uL (130-400) 12/25/24 04:13
PT 16.2 Sec (11.4-14.6) H 12/24/24 11:51
INR 1.25 12/24/24 11:51
APTT 36.5 Sec (23.4-35.0) H 12/24/24 11:51
Sodium 138 mmol/L (135-145) 12/25/24 04:13
Potassium 4.5 mmol/L (3.5-5.1) 12/25/24 04:13
BUN 22 mg/dl (9-20) H 12/25/24 04:13
Creatinine 0.7 mg/dL (0.7-1.3) 12/25/24 04:13
Glucose 90 mg/dl (70-99) 12/25/24 04:13
Vital Signs and I&O:
Vital Signs
Temp Pulse Resp BP Pulse Ox
98.9 F 80 24 91/50 94
12/25/24 08:00 12/25/24 13:01 12/25/24 13:01 12/25/24 13:01 12/25/24 12:00
Vital Signs
Temp Pulse Resp BP Pulse Ox
98.9 F 80 24 91/50 94
12/25/24 08:00 12/25/24 13:01 12/25/24 13:01 12/25/24 13:01 12/25/24 12:00
Intake & Output
12/23/24 12/24/24 12/25/24 12/26/24
07:59 07:59 07:59 07:59
Intake Total 600 / 600 1819.1 / 1840.4 79.9 / 79.9
Output Total 2628 / 2628 225 / 225
Balance 600 / 600 -808.9 / -787.6 -145.1 / -145.1
Physical Exam
Physical Exam
GEN: No distress, awake, alert, oriented x3
HEENT: supple, anicteric, mmm, EOMI
LUNGS: CTA bilaterally, no wheezes/rales
CV: Reg, S1/S2, no murmur
ABD: soft, BS+, NT/ND
EXT: No cyanosis, clubbing. 1+ edema of bilateral lower extremity
NEURO: Gross non-focal
SKIN: Warm, pink, dry. No rash. Sternotomy incision clean dry and intact
--- NOTE | 2024-12-25 14:25 | W.PN.ID1 ---
Date of Service
Date of Service: December 25, 2024
Today's Communication
Continue antibiotics.
Assessment / Plan
Endocarditis
Bacteremia with coag negative staph
L5-S1 discitis
Elevated CRP
Hx prior endocarditis (x 3)
Recommendations:
Blood cultures positive for Staph epidermidis, which match isolates recovered at OSH.
Recovered Staphylococcus epidermidis is oxacillin sensitive.
Continue cefazolin 2 g IV every 8 hours. Patient will require 6-week course of therapy. Infusion sheet given to Optometrist President/Practice Owner
Monitor white count and temperature curve.
Blood cultures obtained day before admission remain negative at 24 hours. Intraoperative cultures pending.
Case discussed with CT Surgery. Will repeat one additional set of blood cultures to confirm clearance of bacteremia.
Check ESR and CRP in a.m. for baseline.
����������������������������������������������������������
Chief Complaint
-: Bacteremia and Other (Endocarditis; lumbar discitis)
Subjective / Review of Systems
Patient seen and examined. Reports feeling improved. Currently sitting up in chair. Pericardial drain remains in place.
Vital Signs / Physical Exam
Vital Signs
Vital Signs
Temp Pulse Resp BP Pulse Ox
98.9 F 80 24 91/50 94
12/25/24 08:00 12/25/24 13:01 12/25/24 13:01 12/25/24 13:01 12/25/24 12:00
Physical Exam
Constitutional: No Acute Distress, Comfortable and Non-toxic
Head: Other (ET tube in place.)
Eyes: Sclera Anicteric
Cardiovascular: S1/S2 and Murmur; Negative S3/S4
Pulmonary: Clear and Non Labored
Gastrointestinal: Soft, Non Tender, Non Distended and Normal Bowel Sounds
Genito-Urinary: Appiah
Skin: Warm and Dry; Negative Rash or Jaundice
Neurological: Awake, Alert and Other (Sedated)
Psychological: Calm
Objective Data
Lab Data
Lab Results
12/25/24 04:13
12/25/24 04:13
ESR 34 mm/hour (0-20) H 12/18/24 05:08
PT 16.2 Sec (11.4-14.6) H 12/24/24 11:51
INR 1.25 12/24/24 11:51
APTT 36.5 Sec (23.4-35.0) H 12/24/24 11:51
Estimated Creat Clear > 125 ml/min 12/25/24 04:13
Total Bilirubin 0.8 mg/dl (0.2-1.3) 12/21/24 03:50
AST 25 U/L (17-59) 12/21/24 03:50
ALT 28 U/L (0-50) 12/21/24 03:50
Alkaline Phosphatase 103 U/L (38-126) 12/21/24 03:50
C-Reactive Protein 52.60 mg/L (0.0-10.00) H 12/17/24 02:34
Most recent labs reviewed.
Micro Results:
12/25/24 13:51 Blood Culture - Pending
Blood/Venous
12/24/24 08:50 Anaerobic Culture - Preliminary
Heart Culture pending. Anaerobic cultures are examined after 3
days incubation. Additional information to follow.
12/24/24 08:50 Tissue Culture - Preliminary
Valve No Growth After 18-24 Hours
Gram Stain - Preliminary
12/24/24 08:50 Anaerobic Culture - Preliminary
Heart Culture pending. Anaerobic cultures are examined after 3
days incubation. Additional information to follow.
12/24/24 08:50 Tissue Culture - Preliminary
Valve Gram Stain - Preliminary
12/23/24 17:02 Blood Culture - Preliminary
Blood/Venous No Growth in 24 hours- Final report to follow
12/23/24 15:59 Blood Culture - Preliminary
Blood/Venous No Growth in 24 hours- Final report to follow
12/24/24 08:50 Fungal Culture - Pending
Heart
12/24/24 08:50 Fungal Culture - Pending
Heart
12/16/24 23:46 Blood Culture - Final
Blood/Venous Staphylococcus epidermidis
Gram Stain - Final
12/19/24 16:26 Blood Culture - Preliminary
Blood/Venous Staphylococcus epidermidis
Gram Stain - Preliminary
12/19/24 08:32 Blood Culture - Preliminary
Blood/Venous Staphylococcus epidermidis
Gram Stain - Preliminary
12/16/24 22:52 Blood Culture - Final
Blood/Venous Staphylococcus epidermidis
Gram Stain - Final
12/16/24 20:09 MRSA Screen - Final
Nose No Methicillin Resistant Staphylococcus aureus isolated.
12/14/2024 1735
Blood/Venous Blood Culture :
Coag negative staph
12/14/2024 1730
Blood/Venous Blood Culture :
Coag negative staph
Blood Culture 12/20/24-1015
1. Staphylococcus epidermidis
M.I.C. RX
--------- ---
Amoxicillin/Potas. Clavulanate <=4/2 S
Ampicillin <=2 R
Clindamycin <=0.5 S
Gentamicin <=4 S
Erythromycin >4 R
Levofloxacin <=1 S
--> Oxacillin <=0.25 S
Tetracycline <=4 S
Trimethoprim/Sulfamethoxazole 2/38 S
Vancomycin 1 S
Imaging:
12/18/2024 ECHO (LAURIE): EF approximately 45%. Trileaflet aortic valve with a large highly mobile echodensity noted also concern for anterior leaflet mitral valve vegetation. Please see full dictation for additional detail
12/18/2024 MRI thoracic and lumbar spine: In the thoracic spine there is no evidence of discitis or osteomyelitis. No epidural abscess or focal disc protrusion. On the lumbar MRI there is disc space narrowing at L5-S1 which is suspicious for
discitis and mild osteomyelitis. No epidural collection or abscess is noted.
12/17/2024 CT chest/abdomen/pelvis: Possible aortic valve vegetation. 2 splenic hypodense wedge-shaped areas suspicious for splenic infarcts. Pulmonary nodules also noted suspicious for possible septic emboli. Please see full dictation for
additional detail.
ECHO at [facility]: EF 37% with Severe AI and mod to severe TR with echodensity of AV and LVOT appearing adherent onto the ventricular side of the base of the anterior mitral valve leaflet
Care Review
Plan reviewed with: Other Provider (CT Surgery PA)
--- NOTE | 2024-12-25 14:39 | PTCARENOTE ---
pt placed back to bed, PRN Dilaudid given as ordered. CHIEF RISK OFFICER at bedside, A&V wires pulled, q15min VS completed.
--- NOTE | 2024-12-25 16:19 | CM ---
dc plans didierian lion with IV antibx. cm to finalize plans with [facility] saturday.
--- NOTE | 2024-12-25 16:30 | PTCARENOTE ---
pt VSS, resting between care. blood cultures drawn as ordered. pt OOB to chair for dinner. IS encouraged.
--- NOTE | 2024-12-25 20:00 | PTCARENOTE ---
Assumed care of the patient from day shift RN. Pt OOB to chair, AOx3. Heart tones audible, SR on CM, trace LE edema, pulses palpable, AV wire pull site dressing CDI. Lungs diminished throughout on RA, IS encouraged. Abdomen SNT, patient endorses
passing flatus, tolerating PO, voiding concentrated clear yellow urine without difficulty into urinal. MS UMM WOOD INSPECTOR. THI Hollis, PIVx2, patient updated on POC, in agreement, assessment of needs ongoing. Call mckee within reach.
[2024-12-26] VITALS (10 sets, daily range): BP systolic 98–118; BP diastolic 59–79; PULSE 70; O2SAT 94–95; BMI 27.0
--- NOTE | 2024-12-26 | PTCARENOTE ---
VSS, patient in bed, c/o 6-02/21 pain, management with PRNs, see MAR. Assessment otherwise unchanged.
[2024-12-26] MEDS: ANCEF 10 IV ×4 (00:07→23:37)
[2024-12-26] MEDS: DILAUDID 0.5 MG IV ×2 (01:01→08:10)
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
[2024-12-26] MEDS: TORADOL 15 MG IV (04:51)
[2024-12-26 04:55] LABS: Hematocrit 27.8 % (39.0-52.0); Hemoglobin 9.5 g/dL (13.0-18.0); Mean Corp Hgb Conc. 34.2 g/dL (33.0-37.0); Mean Corpuscular Hgb 32.1 pg (27.0-31.0); Mean Corpuscular Volume 93.9 fL (80.0-94.0); Mean Platelet Volume 9.1 fL (7.4-10.4); Platelet Count 204 10^3/uL (130-400); Red Blood Cell Count 2.96 10^6/uL (4.70-6.10); Red Cell Dist. Width 12.3 % (11.5-14.5); White Blood Cell Count 10.5 10^3/uL (4.8-10.8)
[2024-12-26 05:10] LABS: Erythrocyte Sed Rate 74 mm/hour (0-20)
[2024-12-26 05:20] LABS: Blood Urea Nitrogen 23 mg/dl (9-20); Calcium 8.5 mg/dl (8.4-10.2); Carbon Dioxide 28 mmol/L (22-30); Chloride 103 mmol/L (98-107); Estimated Creatinine Clearance 114 ml/min; Glucose 113 mg/dl (70-99); Magnesium 1.8 mg/dl (1.6-2.3); Potassium 4.3 mmol/L (3.5-5.1); Sodium 134 mmol/L (135-145); eGFR > 60.00
[2024-12-26] MEDS: TYLENOL 1000 MG PO ×3 (06:20→21:41)
[2024-12-26] MEDS: ROXICODONE 5 MG PO ×6 (06:20→23:56)
[2024-12-26] MEDS: PROTONIX 40 MG PO (08:17)
[2024-12-26] MEDS: LIDOCAINE 4% PATCH 1 PATCH TOPICAL (08:17)
[2024-12-26] MEDS: SENOKOT-S 1 TABLET PO ×2 (08:18→20:08)
[2024-12-26] MEDS: PACERONE 200 MG PO ×3 (08:18→21:41)
[2024-12-26] MEDS: MAGNESIUM OXIDE 500 MG PO ×2 (08:18→20:08)
[2024-12-26] MEDS: BACTROBAN 2% OINTMENT 1 APPLIC NASAL ×2 (08:18→20:08)
[2024-12-26] MEDS: NEURONTIN 600 MG PO ×3 (08:18→21:41)
[2024-12-26] MEDS: LOW STRENGTH ASPIRIN 81 MG PO (08:18)
[2024-12-26] MEDS: FLEXERIL 5 MG PO (08:18)
--- NOTE | 2024-12-26 08:30 | PTCARENOTE ---
Assumed care of patient. Walking rounds completed with previous RN. Pt assessed while he was sitting in the chair. Pt alert and oriented x4. Rates sternal pain 7/10-see MAR. Denies shortness of breath and nausea. SKY with equal strength throughout.
NSR on tele with rates in the 80s. BP 98/69. Bilateral radial and DP pulses weakly palpable. Trace generalized edema. POX 94% on RA. Lungs diminished in the bases. Mediastinal chest tubes x2 y-sited to 1 atrium to -20cm suction draining scant
amounts of serosanguineous fluid. No air leak, tidaling, crepitus noted. IS encouraged-1250mL achieved. Abdomen soft, nontender. Hypoactive BS. Pt due to void for this RN. Sternal incision approximated, POORNIMA. Chest tube sites covered, CDI. Right IJ
cordis intact infusing NSS KVO. PIV x2 intact. See MAR for medication administration. See worklist for complete nursing assessment. Plan of care reviewed and patient in agreement.
[2024-12-26] MEDS: LOPRESSOR 12.5 MG PO ×2 (09:24→20:08)
[2024-12-26] MEDS: NSS 500 IV (09:24)
--- NOTE | 2024-12-26 11:20 | PTCARENOTE ---
Pt reassessed. NSR on tele with rates in the 70s. BP 110/66. POX 98% on RA. Surgical sites stable. CT output WNL. C/O 12/22 sternal pain-see SEP. No other acute changes from previous assessment.
--- NOTE | 2024-12-26 11:37 | W.PN.ID1 ---
Date of Service
Date of Service: December 26, 2024
Today's Communication
Continue antibiotics.
Assessment / Plan
Endocarditis
Bacteremia with coag negative staph
L5-S1 discitis
Elevated ESR / CRP
Hx prior endocarditis (x 3)
Recommendations:
Blood cultures positive for Staph epidermidis, which match isolates recovered at OSH.
Recovered Staphylococcus epidermidis is oxacillin sensitive.
Continue cefazolin 2 g IV every 8 hours. Patient will require 6-week course of therapy. Infusion sheet given to Assembly Mechanic
Monitor white count and temperature curve.
Intraoperative tissue cultures pending. Postoperative blood cultures pending
����������������������������������������������������������
Chief Complaint
-: Bacteremia and Other (Endocarditis; lumbar discitis)
Subjective / Review of Systems
Review of Systems: No Fever and No Chills
Vital Signs / Physical Exam
Vital Signs
Vital Signs
Temp Pulse Resp BP Pulse Ox
98.1 F 73 16 110/66 98
12/26/24 11:21 12/26/24 11:21 12/26/24 11:21 12/26/24 11:13 12/26/24 11:21
Physical Exam
Constitutional: No Acute Distress, Comfortable and Non-toxic
Eyes: Sclera Anicteric
Cardiovascular: S1/S2, Murmur and Other (Pericardial drain remains in place); Negative S3/S4
Pulmonary: Clear and Non Labored
Gastrointestinal: Soft, Non Tender, Non Distended and Normal Bowel Sounds
Genito-Urinary: Appiah
Skin: Warm and Dry; Negative Rash or Jaundice
Neurological: Awake, Alert and Other (Sedated)
Psychological: Calm
Objective Data
Lab Data
Lab Results
12/26/24 04:33
12/26/24 04:33
ESR 74 mm/hour (0-20) H 12/26/24 04:33
PT 16.2 Sec (11.4-14.6) H 12/24/24 11:51
INR 1.25 12/24/24 11:51
APTT 36.5 Sec (23.4-35.0) H 12/24/24 11:51
Estimated Creat Clear 114 ml/min 12/26/24 04:33
Total Bilirubin 0.8 mg/dl (0.2-1.3) 12/21/24 03:50
AST 25 U/L (17-59) 12/21/24 03:50
ALT 28 U/L (0-50) 12/21/24 03:50
Alkaline Phosphatase 103 U/L (38-126) 12/21/24 03:50
C-Reactive Protein 152.70 mg/L (0.0-10.00) H 12/26/24 04:33
Most recent labs reviewed.
Micro Results:
12/24/24 08:50 Tissue Culture - Preliminary
Valve Gram Stain - Preliminary
12/24/24 08:50 Anaerobic Culture - Preliminary
Heart Culture pending. Anaerobic cultures are examined after 3
days incubation. Additional information to follow.
12/24/24 08:50 Tissue Culture - Preliminary
Valve Gram Stain - Preliminary
12/23/24 17:02 Blood Culture - Preliminary
Blood/Venous No Growth in 48 hours- Final report to follow
12/25/24 16:49 Blood Culture - Pending
Blood/Venous
12/25/24 16:53 Blood Culture - Pending
Blood/Venous
12/23/24 15:59 Blood Culture - Preliminary
Blood/Venous No Growth in 48 hours- Final report to follow
12/24/24 08:50 Anaerobic Culture - Preliminary
Heart Culture pending. Anaerobic cultures are examined after 3
days incubation. Additional information to follow.
12/24/24 08:50 Fungal Culture - Pending
Heart
12/24/24 08:50 Fungal Culture - Pending
Heart
12/16/24 23:46 Blood Culture - Final
Blood/Venous Staphylococcus epidermidis
Gram Stain - Final
12/19/24 16:26 Blood Culture - Preliminary
Blood/Venous Staphylococcus epidermidis
Gram Stain - Preliminary
12/19/24 08:32 Blood Culture - Preliminary
Blood/Venous Staphylococcus epidermidis
Gram Stain - Preliminary
12/16/24 22:52 Blood Culture - Final
Blood/Venous Staphylococcus epidermidis
Gram Stain - Final
12/16/24 20:09 MRSA Screen - Final
Nose No Methicillin Resistant Staphylococcus aureus isolated.
12/14/2024 1735
Blood/Venous Blood Culture :
Coag negative staph
12/14/2024 1730
Blood/Venous Blood Culture :
Coag negative staph
Blood Culture 12/20/24-1015
1. Staphylococcus epidermidis
M.I.C. RX
--------- ---
Amoxicillin/Potas. Clavulanate <=4/2 S
Ampicillin <=2 R
Clindamycin <=0.5 S
Gentamicin <=4 S
Erythromycin >4 R
Levofloxacin <=1 S
--> Oxacillin <=0.25 S
Tetracycline <=4 S
Trimethoprim/Sulfamethoxazole 2/38 S
Vancomycin 1 S
Imaging:
12/18/2024 ECHO ([facility]URIE): EF approximately 45%. Trileaflet aortic valve with a large highly mobile echodensity noted also concern for anterior leaflet mitral valve vegetation. Please see full dictation for additional detail
12/18/2024 MRI thoracic and lumbar spine: In the thoracic spine there is no evidence of discitis or osteomyelitis. No epidural abscess or focal disc protrusion. On the lumbar MRI there is disc space narrowing at L5-S1 which is suspicious for
discitis and mild osteomyelitis. No epidural collection or abscess is noted.
12/17/2024 CT chest/abdomen/pelvis: Possible aortic valve vegetation. 2 splenic hypodense wedge-shaped areas suspicious for splenic infarcts. Pulmonary nodules also noted suspicious for possible septic emboli. Please see full dictation for
additional detail.
ECHO at [facility]: EF 37% with Severe AI and mod to severe TR with echodensity of AV and LVOT appearing adherent onto the ventricular side of the base of the anterior mitral valve leaflet
[2024-12-26] MEDS: HEPARIN 25000 UNITS/250 ML IV (12:34)
[2024-12-26] MEDS: FERRLECIT 110 MG IV (14:02)
--- NOTE | 2024-12-26 14:08 | W.PN.CARDCBS ---
Today's Communication / Plan
-
IV antibiotics per infectious disease
Eliquis when okay with CT surgery
Postoperative care
Monitor on telemetry
Impression / Plan
-
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
Assessment:
Presentation to [facility] with back pain
Leukocytosis
Left pulmonary embolus started on anticoagulation at [facility]
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
Severe AI and mod to severe TR with echodensity of AV and LVOT by echo at [facility] status post bioprosthetic SAVR, extensive debridement of anterior leaflet of mitral valve, chordal sparing bioprosthetic TVR, LENCHO clip 12/24/2024
Cardiomyopathy, EF 37% by echo at [facility]
History of endocarditis x3 ~2017, treated with IV abx
Clot in setting of above requiring thrombectomy
History of IVDA (heroin, sober since 06/2023)
Multiple dental extractions over last several months
Tobacco use
Daily ETOH use (2-3 beers daily)
ECHO at [facility]: EF 37% with Severe AI and mod to severe TR with echodensity of AV and LVOT appearing adherent onto the ventricular side of the base of the anterior mitral valve leaflet
ECHO 12/17/24: EF 45-50%, possible basal inferior hypokinesis, stage 1 diastolic dysfunction, mobile echodensities at junction of anterior leaflet of mitral valve in LVOT, mod sized highly mobile echodensity of NCC, severe AR, small mobile echodensity
suspicious for endocarditis on tricuspid valve with moderate to severe TR, PAP 30 mmHg
LAURIE 12/18/2024: EF 45 to 50%. Large highly mobile echodensity (1.5 cm x 0.6 cm) suspected to be vegetation near anterior leaflet of mitral valve. No mitral regurgitation. Also appears to have vegetation associated with aortic valve with leaflet
perforation at RCC and some involvement of the NCC associated with severe AI. Calcified ehodensity (0.9 cm x 0.3 cm) associated with the tricuspid valve is visualized. Suspect calcified vegetation. Severe tricuspid regurgitation.
Plan:
-39-year-old gentleman with history of prior IV drug abuse, sober since June 2023 presents with left-sided pulmonary embolism and MSSE bacteremia s/p LAURIE 12/18/24 with EF 45 to 50%, large highly mobile echodensity of aortic valve appears to be
associated with LVOT near anterior leaflet of mitral valve, no mitral valve regurgitation, another vegetation associated with aortic valve, leaflet perforation at RCC and also some involvement of NCC, severe AR, calcified echodensity associated of
tricuspid valve with severe TR
-status post bioprosthetic SAVR, extensive debridement of anterior leaflet of mitral valve, chordal sparing bioprosthetic TVR, LENCHO clip 12/24/2024
- Remains in sinus rhythm on review of telemetry
- Repeat blood cultures drawn 12/25. Continue IV antibiotics per ID
- Plan for IV heparin in a.m. for PE. Transition to Eliquis when okay per surgery
- Continue postop care
- Continue OOB/I-S
-Patient has a history of cardiomyopathy 45-50% by LAURIE 12/18, by intraop LAURIE EF 50-55%. Resume guideline directed medical therapy postoperatively as able
-spine MRI with evidence of possible discitis/mild osteomyelitis with no abscess. Neurosurgery evaluation appreciated. no surgical intervention at this time but continue treatment with IV abx. Recommended surveillance imaging studies MRI of lower
spine with and without contrast in 6 weeks to reassess presumed osteodiscitis.
-tobacco/ETOH cessation
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
PREADMIT DATA:
-Patient presented to [facility] with back pain and was found to have leukocytosis. Then by imaging noted to have left PE with evidence of RV dysfunction out of proportion to degree of pulmonary embolus burden. Underwent echocardiogram
which showed EF of 37% as well as severe AI and moderate to severe TR with echodensity of aortic valve as well as left ventricular outflow tract. Patient was then transferred to [facility] for CT surgical evaluation for endocarditis.
Progress Note - Head Refrigerating Engineer
Subjective
Date of Service: December 26, 2024
Patient seen and examined. No acute events overnight. Patient reporting no discomfort at the site of incision. Denies shortness of breath, palpitations, or weakness.
Objective
Labs:
12/26/24 04:33
12/26/24 04:33
Labs
Hgb 9.5 g/dL (13.0-18.0) L 12/26/24 04:33
Hct 27.8 % (39.0-52.0) L 12/26/24 04:33
Plt Count 204 10^3/uL (130-400) 12/26/24 04:33
PT 16.2 Sec (11.4-14.6) H 12/24/24 11:51
INR 1.25 12/24/24 11:51
APTT 36.5 Sec (23.4-35.0) H 12/24/24 11:51
Sodium 134 mmol/L (135-145) L 12/26/24 04:33
Potassium 4.3 mmol/L (3.5-5.1) 12/26/24 04:33
BUN 23 mg/dl (9-20) H 12/26/24 04:33
Creatinine 0.9 mg/dL (0.7-1.3) 12/26/24 04:33
Glucose 113 mg/dl (70-99) H 12/26/24 04:33
Vital Signs and I&O:
Vital Signs
Temp Pulse Resp BP Pulse Ox
98.1 F 77 16 110/66 98
12/26/24 11:21 12/26/24 14:00 12/26/24 11:21 12/26/24 11:13 12/26/24 11:21
Vital Signs
Temp Pulse Resp BP Pulse Ox
98.1 F 77 16 110/66 98
12/26/24 11:21 12/26/24 14:00 12/26/24 11:21 12/26/24 11:13 12/26/24 11:21
Intake & Output
12/24/24 12/25/24 12/26/24 12/27/24
06:59 06:59 06:59 06:59
Intake Total 1767.8 / 1819.1 651.2 / 651.2 550 / 550
Output Total 2613 / 2628 1185 / 1185 700 / 700
Balance -845.2 / -808.9 -533.8 / -533.8 -150 / -150
Physical Exam
Physical Exam
GEN: No distress, awake, alert, oriented x3
HEENT: supple, anicteric, mmm, EOMI
LUNGS: CTA bilaterally, no wheezes/rales
CV: Reg, S1/S2, no murmur
ABD: soft, BS+, NT/ND
EXT: No cyanosis, clubbing. 1+ edema of bilateral lower extremity
NEURO: Gross non-focal
SKIN: Warm, pink, dry. No rash. Sternotomy incision clean dry and intact
Telemetry: Sinus rhythm
--- NOTE | 2024-12-26 17:00 | PTCARENOTE ---
Pt reassessed. Resting in bed. Rates sternal pain 02/21-see SEP. SR on tele with rates in the 70s. BP 111/71. POX 97% on RA. Surgical sites stable.
[2024-12-26 18:28] LABS: APTT 42.8 Sec (23.4-35.0)
--- NOTE | 2024-12-26 20:00 | PTCARENOTE ---
Received pt from [facility]. pt resting in chair. pt is POD 2 from AVR/TVR and MV debridement by Dr Pugh. pt is AAOx4, states pain is 8/10. NSR on monitor. VSS. heart sounds audible, radial and DP pulses palpable, trace generalized edema. lungs
diminished in b/l bases , spo2 95% on RA, x2 MS CT to -20 wall suction, no air leaks, no tidaling, no crepitus. +BS x4 quadrants, abdomen soft, non tender. pt voiding dark yellow urine. surgical sites maintained. right IJ cordis and PIV maintained,
right hand IV leaking and removed. heparin gtt infusing.
[2024-12-27] VITALS (7 sets, daily range): BP systolic 102–133; BP diastolic 65–80; BMI 27.0
--- NOTE | 2024-12-27 | PTCARENOTE ---
Pt assessment unchanged. NSR on monitor. VSS. ongoing pain management, see SEPChapincito mckee within reach. will continue to monitor.
[2024-12-27 00:26] LABS: APTT 47.7 Sec (23.4-35.0)
[2024-12-27] MEDS: ROXICODONE 5 MG PO ×2 (01:49→06:19)
--- NOTE | 2024-12-27 04:00 | PTCARENOTE ---
pt assessment unchanged. NSR on monitor. VSS. call mckee within reach.
[2024-12-27 04:37] LABS: Hematocrit 26.2 % (39.0-52.0); Mean Corp Hgb Conc. 34.4 g/dL (33.0-37.0); Mean Corpuscular Hgb 32.6 pg (27.0-31.0); Mean Corpuscular Volume 94.9 fL (80.0-94.0); Mean Platelet Volume 9.3 fL (7.4-10.4); Platelet Count 213 10^3/uL (130-400); Red Blood Cell Count 2.76 10^6/uL (4.70-6.10); Red Cell Dist. Width 12.3 % (11.5-14.5); White Blood Cell Count 7.6 10^3/uL (4.8-10.8)
[2024-12-27 04:56] LABS: Blood Urea Nitrogen 18 mg/dl (9-20); Calcium 8.3 mg/dl (8.4-10.2); Carbon Dioxide 29 mmol/L (22-30); Chloride 107 mmol/L (98-107); Estimated Creatinine Clearance > 125 ml/min; Glucose 103 mg/dl (70-99); Potassium 4.3 mmol/L (3.5-5.1); Sodium 139 mmol/L (135-145); eGFR > 60.00
[2024-12-27] MEDS: TYLENOL 1000 MG PO ×3 (05:20→21:15)
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
[2024-12-27] MEDS: FLEXERIL 5 MG PO (09:48)
[2024-12-27] MEDS: NEURONTIN 600 MG PO ×3 (09:48→21:14)
[2024-12-27] MEDS: PROTONIX 40 MG PO (09:48)
[2024-12-27] MEDS: SENOKOT-S 1 TABLET PO ×2 (09:48→19:48)
[2024-12-27] MEDS: LOW STRENGTH ASPIRIN 81 MG PO (09:49)
[2024-12-27] MEDS: ANCEF 10 IV ×3 (09:49→23:41)
[2024-12-27] MEDS: LOPRESSOR 12.5 MG PO ×2 (09:49→19:48)
[2024-12-27] MEDS: PACERONE 200 MG PO ×3 (09:49→21:15)
[2024-12-27] MEDS: ROXICODONE 10 MG PO ×4 (09:49→23:49)
[2024-12-27] MEDS: BACTROBAN 2% OINTMENT 1 APPLIC NASAL ×2 (09:50→21:14)
[2024-12-27] MEDS: MAGNESIUM OXIDE 500 MG PO ×2 (09:50→19:48)
[2024-12-27] MEDS: NSS 500 IV (09:50)
[2024-12-27] MEDS: LIDOCAINE 4% PATCH TOPICAL (09:51)
--- NOTE | 2024-12-27 10:08 | W.PN.ID1 ---
Date of Service
Date of Service: December 27, 2024
Today's Communication
Continue antibiotics.
Assessment / Plan
Endocarditis
Bacteremia with coag negative staph
L5-S1 discitis
Elevated ESR / CRP
Hx prior endocarditis (x 3)
Recommendations:
Blood cultures positive for Staph epidermidis, which match isolates recovered at OSH.
Recovered Staphylococcus epidermidis is oxacillin sensitive.
Continue cefazolin 2 g IV every 8 hours. Patient will require 6-week course of therapy. (through 02/04/25).
Monitor white count and temperature curve.
Intraoperative tissue cultures pending. Postoperative blood cultures pending.
����������������������������������������������������������
Chief Complaint
-: Bacteremia and Other (Endocarditis; lumbar discitis)
Subjective / Review of Systems
Patient seen and examined. Notes ongoing pain.
Review of Systems: No Fever and No Chills
Vital Signs / Physical Exam
Vital Signs
Vital Signs
Temp Pulse Resp BP Pulse Ox
98.2 F 67 16 111/71 97
12/27/24 09:48 12/27/24 09:48 12/27/24 09:48 12/27/24 09:48 12/27/24 09:48
Physical Exam
Constitutional: No Acute Distress, Comfortable and Non-toxic
Eyes: Sclera Anicteric
Cardiovascular: S1/S2, Murmur and Other (drain remains in place); Negative S3/S4
Pulmonary: Clear and Non Labored
Gastrointestinal: Soft, Non Tender, Non Distended and Normal Bowel Sounds
Genito-Urinary: [place]
Skin: Warm and Dry; Negative Rash or Jaundice
Neurological: Awake, Alert and Other (Sedated)
Psychological: Calm
Objective Data
Lab Data
Lab Results
12/27/24 04:11
12/27/24 04:11
ESR 74 mm/hour (0-20) H 12/26/24 04:33
PT 16.2 Sec (11.4-14.6) H 12/24/24 11:51
INR 1.25 12/24/24 11:51
APTT 48.0 Sec (23.4-35.0) H 12/27/24 06:55
Estimated Creat Clear > 125 ml/min 12/27/24 04:11
Total Bilirubin 0.8 mg/dl (0.2-1.3) 12/21/24 03:50
AST 25 U/L (17-59) 12/21/24 03:50
ALT 28 U/L (0-50) 12/21/24 03:50
Alkaline Phosphatase 103 U/L (38-126) 12/21/24 03:50
C-Reactive Protein 152.70 mg/L (0.0-10.00) H 12/26/24 04:33
Most recent labs reviewed.
Micro Results:
12/24/24 08:50 Tissue Culture - Preliminary
Valve Gram Stain - Preliminary
12/23/24 17:02 Blood Culture - Preliminary
Blood/Venous No Growth in 72 hours- Final report to follow
12/25/24 16:49 Blood Culture - Preliminary
Blood/Venous No Growth in 24 hours- Final report to follow
12/25/24 16:53 Blood Culture - Preliminary
Blood/Venous No Growth in 24 hours- Final report to follow
12/23/24 15:59 Blood Culture - Preliminary
Blood/Venous No Growth in 72 hours- Final report to follow
12/19/24 08:32 Blood Culture - Final
Blood/Venous Staphylococcus epidermidis
Gram Stain - Final
12/19/24 16:26 Blood Culture - Final
Blood/Venous Staphylococcus epidermidis
Gram Stain - Final
12/24/24 08:50 Tissue Culture - Preliminary
Valve Coagulase neg. staphylococcus
Gram Stain - Preliminary
12/24/24 08:50 Anaerobic Culture - Preliminary
Heart Culture pending. Anaerobic cultures are examined after 3
days incubation. Additional information to follow.
12/24/24 08:50 Anaerobic Culture - Preliminary
Heart Culture pending. Anaerobic cultures are examined after 3
days incubation. Additional information to follow.
12/24/24 08:50 Fungal Culture - Pending
Heart
12/24/24 08:50 Fungal Culture - Pending
Heart
12/16/24 23:46 Blood Culture - Final
Blood/Venous Staphylococcus epidermidis
Gram Stain - Final
12/16/24 22:52 Blood Culture - Final
Blood/Venous Staphylococcus epidermidis
Gram Stain - Final
12/16/24 20:09 MRSA Screen - Final
Nose No Methicillin Resistant Staphylococcus aureus isolated.
12/14/2024 173
Blood/Venous Blood Culture :
Coag negative staph
12/14/2024 1730
Blood/Venous Blood Culture :
Coag negative staph
Blood Culture 12/20/24-1015
1. Staphylococcus epidermidis
M.I.C. RX
--------- ---
Amoxicillin/Potas. Clavulanate <=4/2 S
Ampicillin <=2 R
Clindamycin <=0.5 S
Gentamicin <=4 S
Erythromycin >4 R
Levofloxacin <=1 S
--> Oxacillin <=0.25 S
Tetracycline <=4 S
Trimethoprim/Sulfamethoxazole 2/38 S
Vancomycin 1 S
Imaging:
12/18/2024 ECHO (LAURIE): EF approximately 45%. Trileaflet aortic valve with a large highly mobile echodensity noted also concern for anterior leaflet mitral valve vegetation. Please see full dictation for additional detail
12/18/2024 MRI thoracic and lumbar spine: In the thoracic spine there is no evidence of discitis or osteomyelitis. No epidural abscess or focal disc protrusion. On the lumbar MRI there is disc space narrowing at L5-S1 which is suspicious for
discitis and mild osteomyelitis. No epidural collection or abscess is noted.
12/17/2024 CT chest/abdomen/pelvis: Possible aortic valve vegetation. 2 splenic hypodense wedge-shaped areas suspicious for splenic infarcts. Pulmonary nodules also noted suspicious for possible septic emboli. Please see full dictation for
additional detail.
ECHO at [facility]: EF 37% with Severe AI and mod to severe TR with echodensity of AV and LVOT appearing adherent onto the ventricular side of the base of the anterior mitral valve leaflet
Care Review
Plan reviewed with: Nurse
--- NOTE | 2024-12-27 10:18 | PTCARENOTE ---
assumed care of pt from previous shift RN, sinus rhythm on tele, + peripheral pulses, trace edema. Lungs diminished, pox 97% on RA, coughing and deep breathing encouraged. +bs, tolerating PO intake, voids spontaneously. Mediastinal CTs w minimal
drainage. Cordis and PIV flush easily. pt medicated for pain. plan of care reviewed and questions encouraged.
[2024-12-27] MEDS: ELIQUIS 5 MG PO ×2 (11:09→19:48)
--- NOTE | 2024-12-27 12:38 | PTCARENOTE ---
eliquis administered as ordered, heparin drip discontinued. Mediastinal CTs removed.
[2024-12-27] MEDS: FERRLECIT 110 MG IV (14:04)
--- NOTE | 2024-12-27 16:59 | PTCARENOTE ---
pt refused to sit OOB or walk in [place]. VSS, sinus rhythm maintained on tele. Pain medication dosage increased by CT MAHI and administered as ordered.
--- NOTE | 2024-12-27 20:00 | PTCARENOTE ---
Received pt from [facility]. pt resting in bed. pt is POD 3 from AVR/TVR and MV debridement by Dr Pugh. pt is AAOx4, states pain is 7/10, and is withdrawn with staff, refuses to get out of bed. NSR on monitor. VSS. heart sounds audible, radial and DP
pulses palpable, trace generalized edema. lungs diminished with crackles auscultated in b/l bases, spo2 95% on RA, x2 MS CT were removed today by [facility]. +BS x4 quadrants, abdomen soft, non tender. pt voiding clear yellow urine. surgical sites
maintained. right IJ cordis and PIV maintained. call mckee within reach. will continue to monitor.
--- NOTE | 2024-12-27 22:53 | PTCARENOTE ---
Received pt from [facility]. pt resting in bed. pt is POD 3 from AVR/TVR and MV debridement by Dr Pugh. pt is AAOx4, states pain is 7/10, and is withdrawn with staff, refuses to get out of bed. NSR on monitor. VSS. heart sounds audible, radial and DP
pulses palpable, trace generalized edema. lungs diminished with crackles auscultated in b/l bases, spo2 95% on RA, x2 MS CT were removed today by [facility]. +BS x4 quadrants, abdomen soft, non tender. pt voiding clear yellow urine. surgical sites
maintained. right IJ cordis and PIV maintained, right hand IV leaking and removed. heparin gtt infusing.
--- NOTE | 2024-12-27 23:46 | PTCARENOTE ---
Pt assessment unchanged. NSR on monitor. VSS. pt resting in bed, states pain is 7/10, see MAR. call mckee within reach.
[2024-12-28] VITALS (10 sets, daily range): BP systolic 94–152; BP diastolic 64–108; PULSE 79; O2SAT 96; BMI 26.5
--- NOTE | 2024-12-28 04:00 | PTCARENOTE ---
pt assessment unchanged. NSR on monitor. VSS. pt stated that he dose not want to get out of bed in am. education provided on early mobilization. lbs drawn and sent.
[2024-12-28] MEDS: ROXICODONE 10 MG PO ×5 (04:04→21:45)
[2024-12-28 04:35] LABS: Hematocrit 27.9 % (39.0-52.0); Hemoglobin 9.6 g/dL (13.0-18.0); Mean Corp Hgb Conc. 34.4 g/dL (33.0-37.0); Mean Corpuscular Hgb 32.2 pg (27.0-31.0); Mean Corpuscular Volume 93.6 fL (80.0-94.0); Mean Platelet Volume 8.9 fL (7.4-10.4); Platelet Count 268 10^3/uL (130-400); Red Blood Cell Count 2.98 10^6/uL (4.70-6.10); Red Cell Dist. Width 11.9 % (11.5-14.5)
[2024-12-28 04:44] LABS: Blood Urea Nitrogen 15 mg/dl (9-20); Calcium 8.7 mg/dl (8.4-10.2); Carbon Dioxide 31 mmol/L (22-30); Chloride 104 mmol/L (98-107); Estimated Creatinine Clearance > 125 ml/min; Glucose 89 mg/dl (70-99); Magnesium 1.9 mg/dl (1.6-2.3); Potassium 4.3 mmol/L (3.5-5.1); Sodium 139 mmol/L (135-145); eGFR > 60.00
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
--- NOTE | 2024-12-28 08:00 | PTCARENOTE ---
Patient received from butter maker RN; AAOx3, spontaneously responds to RN and follows commands; Flat affect, withdrawn; VSS; NSR on monitor; Trace generalized edema; +1 DP and +2 radial pulses; Shallow respirations; SpO2 94-97% on RA; IS 1250 ml;
Lungs diminished at bases; Surgical sites intact; PIVx1; RIJ Cordis present; See nursing documentation for further information
[2024-12-28] MEDS: SENOKOT-S 1 TABLET PO (08:06)
[2024-12-28] MEDS: PROTONIX 40 MG PO (08:06)
[2024-12-28] MEDS: NEURONTIN 600 MG PO ×3 (08:06→21:45)
[2024-12-28] MEDS: MAGNESIUM OXIDE 500 MG PO ×2 (08:06→19:17)
[2024-12-28] MEDS: LOPRESSOR 12.5 MG PO (08:06)
[2024-12-28] MEDS: PACERONE 200 MG PO ×3 (08:06→21:45)
[2024-12-28] MEDS: TYLENOL 1000 MG PO ×3 (08:06→21:45)
[2024-12-28] MEDS: LOW STRENGTH ASPIRIN 81 MG PO (08:07)
[2024-12-28] MEDS: ANCEF 10 IV ×3 (08:07→23:03)
[2024-12-28] MEDS: ELIQUIS 5 MG PO ×2 (08:07→19:18)
[2024-12-28] MEDS: BACTROBAN 2% OINTMENT 1 APPLIC NASAL (08:08)
[2024-12-28] MEDS: LIDOCAINE 4% PATCH TOPICAL (08:08)
[2024-12-28] MEDS: KCL 20 MEQ PO (09:36)
[2024-12-28] MEDS: LASIX 40 MG PO (09:36)
[2024-12-28] MEDS: TOPROL XL 12.5 MG PO (09:36)
--- NOTE | 2024-12-28 10:52 | W.PN.ID1 ---
Date of Service
Date of Service: December 28, 2024
Today's Communication
Continue cefazolin.
Assessment / Plan
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
Bacteremia with Staphylococcus epidermidis
L5-S1 discitis
Elevated ESR / CRP
Hx prior endocarditis (x 3)
Recommendations:
Blood cultures positive for Staph epidermidis, which match isolates recovered at OSH.
Recovered Staphylococcus epidermidis is oxacillin sensitive.
Blood cultures from 12/23 remain negative (24 hours prior to valve surgery). Blood cultures from 12/25 also negative.
Continue cefazolin 2 g IV every 8 hours. Patient will require 6-week course of therapy. (through 02/04/25).
- Will follow weekly labs including CBC with differential, BMP, ESR and CRP.
����������������������������������������������������������
Chief Complaint
-: Bacteremia and Other (Endocarditis; lumbar discitis)
Subjective / Review of Systems
Review of Systems: No Fever and No Chills
Vital Signs / Physical Exam
Vital Signs
Vital Signs
Temp Pulse Resp BP Pulse Ox
98.5 F 81 16 112/77 95
12/28/24 07:52 12/28/24 10:00 12/28/24 07:52 12/28/24 09:59 12/28/24 08:00
Physical Exam
Constitutional: No Acute Distress, Comfortable and Non-toxic
Eyes: Sclera Anicteric
Cardiovascular: S1/S2 and Murmur; Negative S3/S4
Pulmonary: Clear and Non Labored
Gastrointestinal: Soft, Non Tender, Non Distended and Normal Bowel Sounds
Genito-Urinary: [place]
Skin: Warm and Dry; Negative Rash or Jaundice
Neurological: Awake, Alert and Other (Sedated)
Psychological: Calm
Objective Data
Lab Data
Lab Results
12/28/24 04:09
12/28/24 04:09
ESR 74 mm/hour (0-20) H 12/26/24 04:33
PT 16.2 Sec (11.4-14.6) H 12/24/24 11:51
INR 1.25 12/24/24 11:51
APTT Cancelled 12/27/24 16:00
Estimated Creat Clear > 125 ml/min 12/28/24 04:09
Total Bilirubin 0.8 mg/dl (0.2-1.3) 12/21/24 03:50
AST 25 U/L (17-59) 12/21/24 03:50
ALT 28 U/L (0-50) 12/21/24 03:50
Alkaline Phosphatase 103 U/L (38-126) 12/21/24 03:50
C-Reactive Protein 152.70 mg/L (0.0-10.00) H 12/26/24 04:33
Most recent labs reviewed.
Micro Results:
12/23/24 17:02 Blood Culture - Preliminary
Blood/Venous No Growth in 4 days- Final report to follow
12/25/24 16:53 Blood Culture - Preliminary
Blood/Venous No Growth in 48 hours- Final report to follow
12/25/24 16:49 Blood Culture - Preliminary
Blood/Venous No Growth in 48 hours- Final report to follow
12/23/24 15:59 Blood Culture - Preliminary
Blood/Venous No Growth in 4 days- Final report to follow
12/24/24 08:50 Tissue Culture - Preliminary
Valve Staphylococcus epidermidis
Gram Stain - Preliminary
12/24/24 08:50 Anaerobic Culture - Preliminary
Heart Culture pending. Anaerobic cultures are examined after 3
days incubation. Additional information to follow.
12/24/24 08:50 Anaerobic Culture - Preliminary
Heart Culture pending. Anaerobic cultures are examined after 3
days incubation. Additional information to follow.
12/24/24 08:50 Tissue Culture - Preliminary
Valve Coagulase neg. staphylococcus
Gram Stain - Preliminary
12/19/24 08:32 Blood Culture - Final
Blood/Venous Staphylococcus epidermidis
Gram Stain - Final
12/19/24 16:26 Blood Culture - Final
Blood/Venous Staphylococcus epidermidis
Gram Stain - Final
12/24/24 08:50 Fungal Culture - Pending
Heart
12/24/24 08:50 Fungal Culture - Pending
Heart
12/16/24 23:46 Blood Culture - Final
Blood/Venous Staphylococcus epidermidis
Gram Stain - Final
12/16/24 22:52 Blood Culture - Final
Blood/Venous Staphylococcus epidermidis
Gram Stain - Final
12/16/24 20:09 MRSA Screen - Final
Nose No Methicillin Resistant Staphylococcus aureus isolated.
12/14/2024 1735
Blood/Venous Blood Culture :
Coag negative staph
12/14/2024 1730
Blood/Venous Blood Culture :
Coag negative staph
Blood Culture 12/20/24-1015
1. Staphylococcus epidermidis
M.I.C. RX
--------- ---
Amoxicillin/Potas. Clavulanate <=4/2 S
Ampicillin <=2 R
Clindamycin <=0.5 S
Gentamicin <=4 S
Erythromycin >4 R
Levofloxacin <=1 S
--> Oxacillin <=0.25 S
Tetracycline <=4 S
Trimethoprim/Sulfamethoxazole 2/38 S
Vancomycin 1 S
Imaging:
12/18/2024 ECHO (LAURIE): EF approximately 45%. Trileaflet aortic valve with a large highly mobile echodensity noted also concern for anterior leaflet mitral valve vegetation. Please see full dictation for additional detail
12/18/2024 MRI thoracic and lumbar spine: In the thoracic spine there is no evidence of discitis or osteomyelitis. No epidural abscess or focal disc protrusion. On the lumbar MRI there is disc space narrowing at L5-S1 which is suspicious for
discitis and mild osteomyelitis. No epidural collection or abscess is noted.
12/17/2024 CT chest/abdomen/pelvis: Possible aortic valve vegetation. 2 splenic hypodense wedge-shaped areas suspicious for splenic infarcts. Pulmonary nodules also noted suspicious for possible septic emboli. Please see full dictation for
additional detail.
ECHO at [facility]: EF 37% with Severe AI and mod to severe TR with echodensity of AV and LVOT appearing adherent onto the ventricular side of the base of the anterior mitral valve leaflet
Care Review
Plan reviewed with: Other Provider (CT surgery extenders)
[2024-12-28] MEDS: NSS IV (10:54)
--- NOTE | 2024-12-28 10:59 | CM ---
pt going home to home after dc for a few days : [address] , [facility]. [facility] aware.
--- NOTE | 2024-12-28 11:00 | W.PN.CARDCBS ---
Addendum entered and electronically signed by Lisa Shaffer DO 12/28/24 13:09:
I saw and examined the patient.
The [employer]'s note was reviewed and I agree with the note.
Comment: Patient seen and examined ambulating around room and feeling well. Anxious for discharge. Denies chest pain or pressure, shortness of breath or dizziness. No fevers.
GEN: No distress, awake, Ox3, sitting in bed
HEENT:mmm
LUNGS: CTA, no wheezes/rales
CV: Reg, S1/S2, no murmur, rub or gallop
Chest: Sternotomy stable, incision well-approximated, no evidence of infection, no rocking or clicking
ABD: soft, BS+, NT/ND
EXT: No edema
Plan:
39-year-old gentleman with history of prior IV drug abuse, sober since June 2023 presents with left-sided pulmonary embolism and MSSE bacteremia s/p LAURIE 12/18/24 with EF 45 to 50%, large highly mobile echodensity of aortic valve appears to be
associated with LVOT near anterior leaflet of mitral valve, no mitral valve regurgitation, another vegetation associated with aortic valve, leaflet perforation at RCC and also some involvement of NCC, severe AR, calcified echodensity associated of
tricuspid valve with severe TR
-status post bioprosthetic SAVR, extensive debridement of anterior leaflet of mitral valve, chordal sparing bioprosthetic TVR, LENCHO clip 12/24/2024
- Remains in sinus rhythm on review of telemetry. Patient continues on amiodarone 200 mg 3 times daily while inpatient per CTS protocol
- Blood cultures from 12/23 remain negative (24 hours prior to valve surgery). Blood cultures from 12/25 also negative x 48 hours (12/28)
- Per ID Continue cefazolin 2 g IV every 8 hours. Patient will require 6-week course of therapy. (through 02/04/25). PICC line today
- Chest tubes removed 12/27/2024 and transitioned back to Eliquis 5 mg twice daily on 12/27/2024
- Continue postop care
- Continue OOB/IS
- Outpatient ID follow-up
- Discussed the importance of strict abstinence of illicit drugs, tobacco and alcohol
Subsegmental PE this admission - off IV heparin, Eliquis started 12/28
History of cardiomyopathy 45-50% by LAURIE 12/18, by intraop LAURIE EF 50-55%.
-Resume guideline directed medical therapy postoperatively as able
-Eventual cardiac rehab as outpatient
Osteomyelitis secondary to Staphylococcus epidermidis bacteremia
- spine MRI with evidence of L5-S1 discitis/mild osteomyelitis with no abscess.
-Neurosurgery evaluation appreciated. no surgical intervention at this time but continue treatment with IV abx.
-Recommended surveillance imaging studies MRI of lower spine with and without contrast in 6 weeks to reassess presumed osteodiscitis.
Outpatient cardiac follow-up with [facility] arranged
Will sign off, recall if needed
�
Original Note:
Today's Communication / Plan
-
Started back on Eliquis 12/27/2024
PICC line later today
Per ID will need continued IV antibiotics with cefazolin 2 g IV every 8 hours. Patient will require 6-week course of therapy. (through 02/04/25)
Weekly labs including CBC, BMP, sed rate and CRP per ID
Check EKG for QTc monitoring with ongoing amiodarone
Anticipate discharge within 24 hours once PICC line has been performed
Outpatient cardiology follow-up has been arranged
Impression / Plan
-
Primary Cafe Lead: URVASHI, Dr. Abel
Assessment:
Presentation to [facility] with back pain
Leukocytosis
Left pulmonary embolus started on anticoagulation at [facility]
Endocarditis and bacteremia secondary to Staphylococcus epidermidis, is oxacillin sensitive.
Severe AI and mod to severe TR with echodensity of AV and LVOT by echo at [facility]
status post bioprosthetic SAVR [27 mm bioprosthesis], extensive debridement of anterior leaflet of mitral valve, chordal sparing bioprosthetic TVR [33 mm bioprosthesis], LENCHO clip [50 mm device] 12/24/2024
L5-S1 discitis
Cardiomyopathy, EF 37% by echo at [facility]
History of endocarditis x3 ~2017, treated with IV abx
History of IVDA (heroin, sober since 06/2023)
History of left-sided pulmonary embolism clot in setting of above requiring thrombectomy
Multiple dental extractions over last several months
Tobacco use
Daily ETOH use (2-3 beers daily)
ECHO at [facility]: EF 37% with Severe AI and mod to severe TR with echodensity of AV and LVOT appearing adherent onto the ventricular side of the base of the anterior mitral valve leaflet
ECHO 12/17/24: EF 45-50%, possible basal inferior hypokinesis, stage 1 diastolic dysfunction, mobile echodensities at junction of anterior leaflet of mitral valve in LVOT, mod sized highly mobile echodensity of NCC, severe AR, small mobile echodensity
suspicious for endocarditis on tricuspid valve with moderate to severe TR, PAP 30 mmHg
LAURIE 12/18/2024: EF 45 to 50%. Large highly mobile echodensity (1.5 cm x 0.6 cm) suspected to be vegetation near anterior leaflet of mitral valve. No mitral regurgitation. Also appears to have vegetation associated with aortic valve with leaflet
perforation at RCC and some involvement of the NCC associated with severe AI. Calcified ehodensity (0.9 cm x 0.3 cm) associated with the tricuspid valve is visualized. Suspect calcified vegetation. Severe tricuspid regurgitation.
Plan:
-39-year-old gentleman with history of prior IV drug abuse, sober since June 2023 presents with left-sided pulmonary embolism and MSSE bacteremia s/p LAURIE 12/18/24 with EF 45 to 50%, large highly mobile echodensity of aortic valve appears to be
associated with LVOT near anterior leaflet of mitral valve, no mitral valve regurgitation, another vegetation associated with aortic valve, leaflet perforation at RCC and also some involvement of NCC, severe AR, calcified echodensity associated of
tricuspid valve with severe TR
-status post bioprosthetic SAVR, extensive debridement of anterior leaflet of mitral valve, chordal sparing bioprosthetic TVR, LENCHO clip 12/24/2024
- Remains in sinus rhythm on review of telemetry. Patient continues on amiodarone 200 mg 3 times daily. Would check EKG for QT surveillance monitoring
- Blood cultures from 12/23 remain negative (24 hours prior to valve surgery). Blood cultures from 12/25 also negative x 48 hours (12/28)
- Per ID Continue cefazolin 2 g IV every 8 hours. Patient will require 6-week course of therapy. (through 02/04/25).
-Chest tubes removed 12/27/2024 and transitioned back to Eliquis 5 mg twice daily on 12/27/2024
- Continue postop care
- Continue OOB/IS
- Patient has a history of cardiomyopathy 45-50% by LAURIE 12/18, by intraop LAURIE EF 50-55%. Resume guideline directed medical therapy postoperatively as able
-Eventual cardiac rehab as outpatient
- spine MRI with evidence of L5-S1 discitis/mild osteomyelitis with no abscess. Neurosurgery evaluation appreciated. no surgical intervention at this time but continue treatment with IV abx. Recommended surveillance imaging studies MRI of lower
spine with and without contrast in 6 weeks to reassess presumed osteodiscitis.
-tobacco/ETOH cessation
-d/w nursing, CT surgery HAM BONER
PREADMIT DATA:
-Patient presented to [facility] with back pain and was found to have leukocytosis. Then by imaging noted to have left PE with evidence of RV dysfunction out of proportion to degree of pulmonary embolus burden. Underwent echocardiogram
which showed EF of 37% as well as severe AI and moderate to severe TR with echodensity of aortic valve as well as left ventricular outflow tract. Patient was then transferred to [facility] for CT surgical evaluation for endocarditis.
Progress Note - Cafe Lead
Subjective
Date of Service: December 28, 2024
Patient seen and examined. Patient sitting comfortably in bed and reports overall he is feeling well. He was able to work with PT OT today without difficulty and walk up steps.
Continues on IV antibiotics per ID
Objective
Labs:
12/28/24 04:09
12/28/24 04:09
Labs
Hgb 9.6 g/dL (13.0-18.0) L 12/28/24 04:09
Hct 27.9 % (39.0-52.0) L 12/28/24 04:09
Plt Count 268 10^3/uL (130-400) D 12/28/24 04:09
PT 16.2 Sec (11.4-14.6) H 12/24/24 11:51
INR 1.25 12/24/24 11:51
APTT Cancelled 12/27/24 16:00
Sodium 139 mmol/L (135-145) 12/28/24 04:09
Potassium 4.3 mmol/L (3.5-5.1) 12/28/24 04:09
BUN 15 mg/dl (9-20) 12/28/24 04:09
Creatinine 0.8 mg/dL (0.7-1.3) 12/28/24 04:09
Glucose 89 mg/dl (70-99) 12/28/24 04:09
Vital Signs and I&O:
Vital Signs
Temp Pulse Resp BP Pulse Ox
98.5 F 81 16 112/77 95
12/28/24 07:52 12/28/24 10:00 12/28/24 07:52 12/28/24 09:59 12/28/24 08:00
Vital Signs
Temp Pulse Resp BP Pulse Ox
98.5 F 81 16 112/77 95
12/28/24 07:52 12/28/24 10:00 12/28/24 07:52 12/28/24 09:59 12/28/24 08:00
Intake & Output
12/26/24 12/27/24 12/28/24 12/29/24
06:59 06:59 06:59 06:59
Intake Total 651.2 / 651.2 620 / 620
Output Total 1185 / 1185 2019 2725 / 2725 550 / 550
Balance -533.8 / -533.8 -1400 / -1400 -2706 / -2706 -550 / -550
Physical Exam
Physical Exam
GEN: No distress, awake, Ox3, sitting in bed
HEENT: supple, anicteric, mmm
LUNGS: CTA, no wheezes/rales
CV: Reg, S1/S2, no murmur, rub or gallop
Chest: Sternotomy stable, incision well-approximated, no evidence of infection, no rocking or clicking
ABD: soft, BS+, NT/ND
EXT: No edema, clubbing or cyanosis
NEURO: Gross non-focal
SKIN: No rash, warm, dry, pink
--- NOTE | 2024-12-28 12:52 | CM ---
Addendum entered by Katelynn Petersen 12/28/24 18:00:
change in plans, pt will get 8am dose of iv antibx here and then go to [facility] infusion room in [place] for teaching . he is agreeable to this plan
Original Note:
confirmed with [facility], they will be able to come to do a bedside teach tomorrow for the 4pm dose. pt aware.
--- NOTE | 2024-12-28 13:39 | PTCARENOTE ---
Steps done with cardiac rehab; Echo completed at bedside; EKG completed by RN
--- NOTE | 2024-12-28 16:47 | PTCARENOTE ---
PICC line inserted by VAT; 2-view CXR completed following procedure
--- NOTE | 2024-12-28 16:48 | CM ---
spoke to [facility] rehabilitation therapy aide, Spencer Newton. discussed this pt going home on IV antibx with remote hx (jun 2023) of IV drug abuse. he stated he did not have any objections to this pt being dc'ed to home with the IV antibx and a PICC line.
[2024-12-28] MEDS: SENOKOT-S PO (19:18)
[2024-12-28] MEDS: TOPROL XL 25 MG PO (19:18)
--- NOTE | 2024-12-28 20:00 | PTCARENOTE ---
Received pt from [facility]. pt resting in bed. pt is POD 4 from AVR/TVR and MV debridement by Dr Pugh. pt is AAOx4, withdrawn. NSR on monitor. VSS. heart sounds audible, radial and DP pulses palpable, trace generalized edema. lungs diminished with
crackles auscultated in b/l bases, spo2 96% on RA. +BS x4 quadrants, abdomen soft, non tender. pt voiding clear yellow urine. surgical sites maintained. double lumen PICC placed today, PIV and PICC maintained. call mckee within reach. will continue
to monitor.
--- NOTE | 2024-12-29 | PTCARENOTE ---
pt assessment unchanged. pt resting in bed. NSR on monitor. VSS. ongoing pain management. call mckee within reach. will continue to monitor.
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
[2024-12-29] MEDS: ROXICODONE 10 MG PO ×2 (02:56→07:36)
[2024-12-29 02:58] VITALS: BP 113/83
[2024-12-29 03:07] VITALS: BMI 26.2
[2024-12-29 03:32] LABS: Hematocrit 28.6 % (39.0-52.0); Hemoglobin 10.3 g/dL (13.0-18.0); Mean Corpuscular Hgb 32.7 pg (27.0-31.0); Mean Corpuscular Volume 90.8 fL (80.0-94.0); Mean Platelet Volume 8.6 fL (7.4-10.4); Platelet Count 299 10^3/uL (130-400); Red Blood Cell Count 3.15 10^6/uL (4.70-6.10); White Blood Cell Count 7.1 10^3/uL (4.8-10.8)
[2024-12-29 03:39] LABS: Blood Urea Nitrogen 19 mg/dl (9-20); Carbon Dioxide 28 mmol/L (22-30); Chloride 105 mmol/L (98-107); Estimated Creatinine Clearance > 125 ml/min; Glucose 107 mg/dl (70-99); Potassium 4.6 mmol/L (3.5-5.1); Sodium 140 mmol/L (135-145); eGFR > 60.00
--- NOTE | 2024-12-29 04:00 | PTCARENOTE ---
Pt assessment unchanged. NSR on monitor. VSS. call mckee within reach.
[2024-12-29] MEDS: TYLENOL PO (06:50)
[2024-12-29 07:29] VITALS: BP 108/77
[2024-12-29] MEDS: SENOKOT-S PO (07:31)
[2024-12-29] MEDS: LIDOCAINE 4% PATCH TOPICAL (07:31)
[2024-12-29] MEDS: PROTONIX 40 MG PO (07:36)
[2024-12-29] MEDS: PACERONE 200 MG PO (07:37)
[2024-12-29] MEDS: ELIQUIS 5 MG PO (07:37)
[2024-12-29] MEDS: LOW STRENGTH ASPIRIN 81 MG PO (07:37)
[2024-12-29] MEDS: NEURONTIN 600 MG PO (07:37)
[2024-12-29] MEDS: TOPROL XL 25 MG PO (07:37)
[2024-12-29] MEDS: MAGNESIUM OXIDE 500 MG PO (07:37)
[2024-12-29] MEDS: ANCEF 10 IV (07:42)
--- NOTE | 2024-12-29 08:04 | PTCARENOTE ---
Patient received from power and recovery shift engineer RN; AAOx3, spontaneously responds to RN and follows commands; Flat affect, withdrawn; VSS; NSR on monitor; Trace generalized edema; +1 DP and +2 radial pulses; Shallow respirations; SpO2 94-97% on RA; IS 1250 ml;
Lungs diminished at bases; Surgical sites intact; PIVx1 removed; Right PICC line intact; PRN Oxycodone given accordingly for pain; See nursing documentation for further information
[2024-12-29] MEDS: LASIX 40 MG PO (08:47)
[2024-12-29] MEDS: KCL 20 MEQ PO (08:47)
--- NOTE | 2024-12-29 08:51 | W.DCSUMMARY ---
Discharge Summary
Discharge Data
Date of Admission: 12/16/24
Date of Discharge: 12/29/24
Total time spent discharging patient (in min): 45
-
Pending Results: No
Hospital Course
Primary care physician:
None
Outpatient latexer:
Dr. Arias
Inpatient consultants:
DCA, heat and frost insulator, ID, anesthesia
Procedures:
1. Surgical aortic valve replacement [27 mm bioprosthesis], Extensive debridement of the anterior leaflet of the mitral valve on the ventricular aspect,Chordal sparing tricuspid valve replacement [33 mm bioprosthesis], Left atrial appendage
exclusion [50 mm device]
Primary Diagnosis:
1. 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
Secondary Diagnoses:
1. Acute postop coagulopathy - s/p 2 FFPs
2. Acute on chronic systolic and diastolic congestive heart failure with a EF of approximately 25% that recovered to 45% preoperatively
3. Osteomyelitis and splenic infarcts and abscess
4. History of endocarditis x 3
5. Acute pulmonary embolism of the left lung
6. EtOH abuse
7. History of IVDA
8. Tobacco abuse
HPI: 39-year-old male with a history of IVDA and endocarditis x 3. He presents with a dilated left ventricle reduced left trickle ejection fraction that was acute on chronic and severe aortic valve insufficiency and severe tricuspid valve
insufficiency secondary to endocarditis. He initially presented to [facility] and was transferred to [facility] for surgery with Dr. Pugh.
Hospital course: Patient initially presented to [facility] after having 12 days of severe back pain. While at [facility] patient was found to have aortic valve and tricuspid valve endocarditis therefore he was transferred to [facility]
on 12/17 for possible valvular surgery with Dr. Pugh. An MRI performed on 12/17 was suspicious for osteomyelitis neurosurgery was consulted but no surgery was recommended. He was started on gabapentin for pain management and eventually blood cultures
grew Staph epidermidis and patient was started on cefazolin 2 g every 8 hours. Blood cultures eventually cleared and patient was taken to the CV OR on 12/[address] Pugh where he received an aortic valve replacement mitral valve debridement and a
tricuspid valve replacement. He returned to CVICU on Levophed, nitroglycerin, and Precedex infusions. Dobutamine was on in the OR and was weaned off. Patient was resuscitated with 500 mL of lactated Ringer's and dobutamine was resumed at 1 and
maintained overnight. On 12/25 postoperative day 1, patient's dobutamine was turned off Deford-Keisha catheter at epicardial wires were removed. On 12/26 postoperative day 2, heparin drip was started and he was started on beta-blockers. On 12/27
postoperative day 3 heparin drip was transitioned to Eliquis and chest tubes were removed. On 12/28 postoperative day 4, patient's PICC line was placed repeat echocardiogram showed an EF of 45-50% and he was diuresed with 40 mg of IV Lasix.
Beta-blockers were also increased. On 12/29 postoperative day 5, patient was deemed stable for discharge. Home antibiotics will set up and he was recommended to go to a pain management doctor.
Home medication changes:
see below
Discharge Plan
-
Patient Disposition: Home (Routine Discharge)
Discharge Diagnosis/Procedures: Bacterial Endocarditis s/p AVR & TVR with eLAA with Dr. Pugh on 12/24/24
Condition: Good
Diet: Regular
Activity: As tolerated and No strenuous activity
Driving Restrictions: Not until seen by your Dr
Bathing Restrictions: OK to Shower
Other Services: Cardiac Rehab
Specialty Instructions: Weigh Daily- Call MD for wt gain/loss 3 lbs overnight/5 lbs in 1 week
Activity Restrictions/Additional Instructions:
Please call [facility]iac [facility] to get scheduled. P: [phone]
ACTIVITY:
-No strenuous activity: no heavy lifting, pushing, pulling anything over 15 pounds for one month
-continue to use stairs as tolerated
DRIVING RESTRICTIONS:
-No driving for one month or until approved by your surgeon
WOUND CARE:
-Shower daily. Use soap & water.
-No lotions, creams or powders on incision area.
DIET:
-continue a low fat/low cholesterol diet.
-IF you are diabetic, continue carb controlled diet.
CARDIAC REHAB:
-Please make appointment to start in 5-6 weeks with your local hospital program. (See Cardiac Rehabilitation Discharge Booklet).
SPECIALTY INSTRUCTIONS:
-Weigh yourself daily. Call your physician for any weight gain/loss of 3 lbs overnight or 5 lbs in one week.
-REPORT any clicking noise or uneven appearance of your sternum to your surgeon immediately.
-If you smoke, you are instructed to quit. The [place] smoking hotline phone number is [phone]
Referrals:
CT Transitional Care Nurse [Outside]
Referral Note: The Cardiothoracic Transitional Care Nurse will call you to set up a visit in 1-2 days.
[facility] [Outside]
Madan Arias MD [Active, Cardiology] - 02/04/25 2:00 pm
Ab Boss MD [Active, Anesthesiology] - in two to three days
Referral Note: Pain management
Brandon Pugh MD [Active, Cardiac Surgery] - 01/19/25 2:00 pm
UNKNOWN - PT DOES,NOT KNOW [Family Provider]
Prescriptions:
New
cefazolin 10 gram Recon Soln
2 g IV Q8H Qty: 0 0RF
cyclobenzaprine 10 mg Tablet
5 mg PO Q8HPRN PRN (Reason: muscle spasm) Qty: 30 0RF
acetaminophen 325 mg Tablet
650 mg PO Q4HPRN PRN (Reason: mild pain,headache,temp >101F ) Qty: 0 0RF
gabapentin 300 mg Capsule
600 mg PO TID Qty: 30 1RF
aspirin 81 mg Tablet,Chewable
81 mg PO DAILY Qty: 0 0RF
metoprolol succinate 25 mg Tablet Extended Release 24 Hr
25 mg PO BID Qty: 60 0RF
Eliquis 5 mg Tablet
5 mg PO BID Qty: 60 1RF
oxycodone 5 mg Tablet
5 mg PO Q8H PRN (Reason: moderate to severe pain) Qty: 10 0RF
Discharge Orders:
Discharge Patient (As Directed); Ordered 12/29/24
Ordered By: Verónica Garza
Care Plan Goals
Care Plan Goals:
Problem: Readiness for enhanced knowledge related to diagnosis and treatment plan
Goal: Understand your diagnosis and treatment plan needs, including medications if applicable.
Instructions: Know your diagnosis, underlying causes and treatment plan options, including medications if applicable. Consult with your health care team to learn about your diagnosis and treatment plan, including medications if applicable.
Discharge Date and Time
Print Language: CENTRAL AFRICAN
[2024-12-29] MEDS: NSS IV (09:05)
[2024-12-29 09:06] VITALS: BP 118/94
[2024-12-29 09:12] VITALS: BP 103/66
[2024-12-29 09:14] VITALS: BP 103/66; BP 118/94; PULSE 89
--- NOTE | 2024-12-29 10:21 | CM ---
CM following for DC planning needs.
Patient for DC to home today.
Plan is for home w/ IV ABT + CT Transitional Care RN.
I have placed call to Christie @ [facility]. She has confirmed that services are in place. Plan is for patient to go to [place] [facility] office on 12/29 at 5PM for his second dose today. The supplies + medication have been delivered there. He will
do his dosing at 12PM at home.
I have reviewed this with patient, provided phone and address for [facility] + 24 h number.
CT Transitional Care RN to visit patient tomorrow.
Plan is for home today with IV ABT thru [facility] + CT Transitional Care RN.
--- NOTE | 2024-12-29 11:09 | PTCARENOTE ---
Patient took CHG shower; Telemetry pack and PIVx1 removed; PICC line dressing redressed by VAT; Patient states full understanding of discharge instructions and has no further questions at this time; VSS; Confirmed outpatient [facility] appointment
location for patient's antibiotics and antibiotic supply delivery; Patient belongings taken with patient; Patient taken to significant other's vehicle in wheelchair by volunteer
== END 2024-12-29 11:49 | disposition home or self-care (01) | DRG 219 ==
LOC: CVICU 19:03
PROVIDERS: Anesthesiology; Clinical Nurse Specialist Acute Care; Hospitalist; Internal Medicine; Nurse Practitioner; Physician Assistant Medical; ADMITTING PHYSICIAN Internal Medicine; ATTENDING PHYSICIAN Thoracic Surgery (Cardiothoracic Vascular Surgery); CONSULT PHYSICIAN Internal Medicine Critical Care Medicine; CONSULT PHYSICIAN Internal Medicine Infectious Disease; OTHER PHYSICIAN Internal Medicine Cardiovascular Disease; OTHER PHYSICIAN Neurological Surgery
PROC: B24BZZ4 Ultrasonography of Heart with Aorta, Transesophageal (ICD-10-PCS; 2024-12-18)
PROC: 02RF08Z Replacement of Aortic Valve with Zooplastic Tissue, Open Approach (ICD-10-PCS; 2024-12-24)
PROC: 02BG0ZZ Excision of Mitral Valve, Open Approach (ICD-10-PCS; 2024-12-24)
PROC: 30233K1 Transfusion of Nonautologous Frozen Plasma into Peripheral Vein, Percutaneous Approach (ICD-10-PCS; 2024-12-24)
PROC: 02RJ08Z Replacement of Tricuspid Valve with Zooplastic Tissue, Open Approach (ICD-10-PCS; 2024-12-24)
PROC: 02L70CK Occlusion of Left Atrial Appendage with Extraluminal Device, Open Approach (ICD-10-PCS; 2024-12-24)
PROC: 5A1221Z Performance of Cardiac Output, Continuous (ICD-10-PCS; 2024-12-24)
PROC: 02HV33Z Insertion of Infusion Device into Superior Vena Cava, Percutaneous Approach (ICD-10-PCS; 2024-12-28)
DX: I33.0 Acute and subacute infective endocarditis (principal); I26.93 Single subsegmental thrombotic pulmonary embolism without acute cor pulmonale; I50.43 Acute on chronic combined systolic (congestive) and diastolic (congestive) heart failure; I42.0 Dilated cardiomyopathy; R78.81 Bacteremia; D68.8 Other specified coagulation defects; M46.27 Osteomyelitis of vertebra, lumbosacral region; D62 Acute posthemorrhagic anemia; J98.11 Atelectasis; I76 Septic arterial embolism; F11.10 Opioid abuse, uncomplicated; F17.210 Nicotine dependence, cigarettes, uncomplicated; B95.7 Other staphylococcus as the cause of diseases classified elsewhere; I08.2 Rheumatic disorders of both aortic and tricuspid valves; F10.10 Alcohol abuse, uncomplicated; D73.5 Infarction of spleen; M46.47 Discitis, unspecified, lumbosacral region; E86.1 Hypovolemia; M48.07 Spinal stenosis, lumbosacral region; Z86.79 Personal history of other diseases of the circulatory system
CPT/HCPCS: 88305; 88311; 93308; 70355; 71045; 71046; 71275; 72157; 72158; 74174; 80048; 80053; 80202; 80306; 80307; 81003; 81015; 82330; 82565; 82805; 82810; 82947; 82962; 83036; 83735; 83880; 84132; 84302; 84443; 84520; 85014; 85018; 85025; 85027; 85049; 85610; 85652; 85730; 86140; 86706; 86803; 86850; 86900; 86901; 86920; 87040; 87070; 87075; 87102; 87147; 87150; 87176; 87186; 87205; 87340; 87389; 93005; 93306; 93312; 93320; 93321; 93325; 93880; 94002; 99406; A9575; J2916; P9059; Q9967

== ENCOUNTER 2025-03-07 19:14 | Inpatient (IN) | payer OTHER, SELFPAY ==
[2025-03-07] VITALS (16 sets, daily range): BP systolic 131–162; BP diastolic 82–123; BMI 26.9; BMI 26.6
[2025-03-07 14:24] LABS: Hematocrit 46.4 % (39.0-52.0); Hemoglobin 16.5 g/dL (13.0-18.0); Mean Corp Hgb Conc. 35.6 g/dL (33.0-37.0); Mean Corpuscular Volume 89.2 fL (80.0-94.0); Nucleated Red Blood Cells % 0 % (-); Platelet Count 282 10^3/uL (130-400); Red Cell Dist. Width 13.2 % (11.5-14.5)
[2025-03-07] MEDS: TORADOL 15 MG IV (14:44)
--- NOTE | 2025-03-07 14:44 | ED.GENMED ---
History of Present Illness
General
Chief Complaint: Breathing Problem
Source: patient
Time Seen by Provider: 03/07/25 14:28
History of Present Illness
History of Present Illness:
40-year-old male presents to the emergency room complaining of left-sided chest pain. Also complaining of shortness of breath. Patient began feeling unwell about 2 to 3 days ago. The pain on the left side of the chest is worse with breathing and
taking deep breaths. No fever or chills. Patient states the discomfort is making it quite difficult for him to breathe. Patient had aortic valve replacement, mitral and tricuspid valve repair performed here at [facility] in December.
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 Patient was discharged on Eliquis. He states he has been compliant with Eliquis and has not missed any doses.
Phy Exam
Physical Exam
Physical Exam:
General: Awake, Alert, Oriented X3. Appears to have some discomfort with deep breaths.
Vitals: unremarkable
Head: Atraumatic
Eyes: Pupils equal, EOMI
Throat: Airway intact, no exudates
Neck: Trachea midline
Chest: Sternal incision which appears well-healed, chest tube site left chest which appear well-healed.
Lungs: Clear and equal b/l
Heart: Regular rate, no murmurs
Abd: Soft, Nontender, No pulsatile mass
Neuro: Nonfocal
Skin: Warm, dry, no rash
Extremities: pulses equal b/l, no edema
Course
Orders/Labs/Results
Orders:
Orders
03/07/25 13:55
EKG [Electrocardiogram (*1)] Urgent
Reason for Study: Shortness of Breath
EKG- Treatment ONCE
CR Chest - 2 Views Urgent
Comment:
Reason For Exam: SOB
03/07/25 14:11
Complete Blood Count/With Diff Urgent
Comprehensive Metabolic Panel Urgent
Prothrombin Time Urgent
03/07/25 14:40
CT Chest PE Study Urgent
Comment:
Reason For Exam: left sided pleuritic chest pain
Ketorolac [Toradol] 15 mg IV NOW STA
03/07/25 15:17
NT-proBNP Urgent
Troponin I Urgent
03/07/25 15:21
HYDROmorphone [Dilaudid] 0.5 mg IV NOW STA
03/07/25 17:55
Cefepime HCl [Maxipime] 2,000 mg IV NOW STA
Vancomycin [Vancocin] 2,000 mg 0.9% Sodium Chloride 500 ml [Nss] 500 ml IV NOW
03/07/25 17:56
COVID-19 Antigen Urgent
Source: Nasal Swab
03/07/25 17:57
0.9% Sodium Chloride 1000 ml [Nss] 1,000 ml IV BOLUS
03/07/25 18:00
Lactic Acid Q4H
Comment: CANCEL 2nd LACTIC ACID IF 1st LACTIC ACID IS LESS THAN 2
Blood Culture Q30M
FRANKIE Source: Blood/Venous
Specimen Description:
03/07/25 18:30
Blood Culture Q30M
FRANKIE Source: Blood/Venous
Specimen Description:
03/07/25 22:00
Lactic Acid Q4H
Comment: CANCEL 2nd LACTIC ACID IF 1st LACTIC ACID IS LESS THAN 2
Abnormal Lab Results
03/07/25
14:11
WBC 12.0 H 10^3/uL
(4.8-10.8)
MCH 31.7 H pg
(27.0-31.0)
Abs Immat Gran (auto) 0.1 H 10^3/uL
(0-0.05)
Absolute Neuts (auto) 9.0 H 10^3/uL
(1.4-6.5)
Absolute Monos (auto) 0.9 H 10^3/uL
(0.1-0.6)
Lymphocytes % 16.5 L %
(20.5-51.1)
PT 16.5 H Sec
(11.4-14.6)
BUN 6 L mg/dl
(9-20)
Glucose 106 H mg/dl
(70-99)
Total Bilirubin 1.4 H mg/dl
(0.2-1.3)
03/07/25 14:11
03/07/25 14:11
Vital Signs
Initial and Last Documented VS:
Initial Vital Signs
Temp Pulse Resp BP Pulse Ox
97.7 F 96 18 162/123 100
03/07/25 13:52 03/07/25 13:52 03/07/25 13:52 03/07/25 13:52 03/07/25 13:52
Last Documented Vital Signs
Temp Pulse Resp BP Pulse Ox
98.8 F 75 28 135/99 100
03/07/25 15:08 03/07/25 17:00 03/07/25 17:00 03/07/25 17:00 03/07/25 17:00
MDM/Problems Addressed
Differential Diagnosis Includes:
PE, pneumothorax, pleurisy, hemothorax, pneumonia
MDM/Problems Addressed:
Patient presents with fairly significant left-sided chest pain particular deep breath. #1 concern was a PE. CT shows no PE. He does have some atelectasis and associated effusion on the left. Radiologist raises the possible concern of pneumonia
with effusion empyema. His white count is mildly elevated. I queried the patient he has developed a cough recently. He is afebrile. His white count is mildly elevated. Unclear if he truly has a pneumonia but given the way he looks in his high
risk history will cover with IV antibiotics and hospitalize.
*Radiology
Radiology exam reviewed: radiology read reviewed
*Pulse Oximetry
SaO2: 100
Oxygen Mode of Delivery: Room air
Patient hypoxic: no
*EKG
Interpreted by ED Provider?: Yes
Heart Rate: 92
Rate: normal
Rhythm: sinus
[place]: normal axis
Interval: normal interval
QRS Pattern: normal QRS and left vent hypertrophy
Ischemia: non-specific ST changes
*Oil Gauger Interpretation
Rate: normal
Interpretation: normal
Rhythm: sinus
*Critical Care Note
Total Time (30-74mins, 75-104mins- exclusive of procedures): 33 min
comment:
Critical care statement: A total of 33 minutes of critical care time was provided for this patient. This includes management of unstable vital signs, evaluation of the patient at bedside, reviewing the patient's pertinent medical records, discussion
with consultants, review of old EKGs and review of pertinent medical records. This time with separate from time utilized to perform the aforementioned documented procedures
Data Reviewed
Review of Other/Old Records Reveals: Radiology Studies, Operative Reports and Discharge Summary
ED Attending Note
-
Portions of this chart may have been created with voice recognition software.� Occasional wrong word or��sound alike� substitutions may have occurred due to the inherent limitations of voice recognition software.
Discharge Plan
Departure
Prescriptions:
No Action
acetaminophen 325 mg Tablet
650 mg PO Q4HPRN PRN (Reason: mild pain,headache,temp >101F ) Qty: 0 0RF
metoprolol succinate 25 mg Tablet Extended Release 24 Hr
25 mg PO BID Qty: 60 0RF
Eliquis 5 mg Tablet
5 mg PO BID Qty: 60 1RF
Referrals:
SAMMIE YU MD [Family Provider, Family Practice]
Interventions
Interventions:
*Risk Screen - Suicide Last Done: 03/07/25 13:54
*General Assessment Last Done: 03/07/25 13:54
*Neglect/Abuse Screening Last Done: 03/07/25 13:54
*ED- Fall Risk Assessment Last Done: 03/07/25 14:17
*ED COVID-19 Vaccine History Last Done: 03/07/25 13:54
ED- Cardiac Assessment Last Done: 03/07/25 14:17
ED- Pulmonary Assessment Last Done: 03/07/25 14:17
Discharge Date and Time
Print Language: WOLOF
[2025-03-07 14:45] LABS: INR 1.31; PT 16.5 Sec (11.4-14.6)
[2025-03-07 14:48] LABS: ALT (SGPT) 15 U/L (0-50); AST (SGOT) 28 U/L (17-59); Albumin 4.6 g/dl (3.5-5.0); Alkaline Phosphatase 124 U/L (38-126); Blood Urea Nitrogen 6 mg/dl (9-20); Calcium 9.5 mg/dl (8.4-10.2); Carbon Dioxide 25 mmol/L (22-30); Chloride 105 mmol/L (98-107); Estimated Creatinine Clearance > 125 ml/min; Glucose 106 mg/dl (70-99); Potassium 4.0 mmol/L (3.5-5.1); Sodium 140 mmol/L (135-145); Total Protein 8.0 g/dl (6.3-8.2); eGFR > 60.00
[2025-03-07] MEDS: DILAUDID 0.5 MG IV (15:25)
[2025-03-07 15:51] LABS: Troponin I 0.020 ng/ml
--- NOTE | 2025-03-07 18:09 | HPS.HSE ---
Family Physician
-
Family Physician: SAMMIE YU MD
Chief Complaint
-
left-sided chest pain
History of Present Illness
Patient is a 40-year-old male with past medical history significant for HFrEF, Hx IVDA, infectious endocarditis x3 and alcohol abuse who presented to [facility] ED for evaluation of left-sided chest pain. Patient reports symptoms started on (4
days ago) and was sharp in nature with shortness of breath and dry cough. Denies fever and chills. He also reports discomfort to right groin and right testicle, has remote history of hernia repair at age 18.
Medical History
Past Medical History
Past Medical History: Reports Other
Additional Past Medical History:
HFrEF
alcohol abuse
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
Hx infectious endocarditis x3
Hx pulmonary embolism
Hx IV drug abuse
Past Surgical History: Reports Other
Additional Past Surgical History:
Right tibia fracture with ORIF
27 mm Valenzuela Inspiris [place] aortic valve
33 mm Valenzuela Inspiris [place] mitral valve placed in tricuspid position
debridement of mitral valve
left atrial appendage clip
Social History
Tobacco: Smoker
Alcohol: Daily (1-2 drinks daily )
Drug: Former User (last use 06/2023 )
Personal:
Living: With Family
Family History
Family History: Not pertinent
Allergies / Home Medications
Allergies reflects when Allergies were last updated in [employer].
Home Medications with original date entered in [employer]
Allergy/Medication List:
Allergies
Allergy/AdvReac Type Severity Reaction Status Date / Time
No Known Allergies Allergy Verified 03/07/25 15:11
Home Medications
acetaminophen 325 mg tablet 650 mg (2 x 325 mg) PO Q4HPRN PRN mild pain,headache,temp >101F #0 tabs 12/29/24
apixaban 5 mg tablet (Eliquis) 5 mg PO BID Blood clot prevention/tx #60 tabs 12/29/24
metoprolol succinate 25 mg tablet,extended release 24 hr 25 mg PO BID Blood pressure #60 tabs 12/29/24
Review of Systems
-
History Source: Patient
Constitutional: Reports No Symptoms
EENT: Reports No Symptoms
Respiratory: Reports Cough and Trouble Breathing (shortness of breath, left side sharp pain with breathing )
Cardiac: Reports No Symptoms
Abdomen/GI: Reports No Symptoms
: Reports No Symptoms
Musculoskeletal: Reports No Symptoms
Skin: Reports No Symptoms
Neurological: Reports No Symptoms
Endocrine: Reports No Symptoms
Hematologic/Lymphatic: Reports No Symptoms
Psych: Reports No Symptoms
Physical Exam
Vital Signs
Vital Signs
Temp Pulse Resp BP Pulse Ox
98.8 F 75 28 135/99 100
03/07/25 15:08 03/07/25 17:00 03/07/25 17:00 03/07/25 17:00 03/07/25 17:00
Physical Exam
General: Well Developed, Well Nourished and No Apparent Distress
HEENT: NormoCephalic, Moist mucous membranes and Atraumatic
Respiratory: Clear and Non Labored Respirations
Cardiac: S1/S2 and Regular Rhythm; No Murmur
Breast: Deferred by me
GI: Soft, Non Tender, Non Distended and Normal Bowel Sounds; No Organomegaly
Rectal: Deferred by Provider
Genito-urinary: Deferred by me
Musculoskeletal: No Clubbing, No Cyanosis and No Edema
Skin: Warm and IV/Catheter Site
Neuro: Awake, AO x 3 and Nonfocal/grossly intact
Hematologic/Lymphatic: No Lymphadenopathy
Psych: Calm and Intact Judgment/Insight
Laboratory Results
-
03/07/25 14:11
03/07/25 14:11
Laboratory Results
PT 16.5 Sec (11.4-14.6) H 03/07/25 14:11
INR 1.31 03/07/25 14:11
Total Bilirubin 1.4 mg/dl (0.2-1.3) H 03/07/25 14:11
AST 28 U/L (17-59) 03/07/25 14:11
ALT 15 U/L (0-50) 03/07/25 14:11
Alkaline Phosphatase 124 U/L (38-126) 03/07/25 14:11
Troponin I 0.020 ng/ml 03/07/25 15:17
Data Reviewed
-
Diagnostic Radiology: Report Reviewed by me (CXR: No acute cardiopulmonary abnormality.)
CT Scan: Report Reviewed by me (Chest: 1. No evidence of pulmonary embolism. 2. Postoperative changes of aortic and tricuspid valve replacements. Small pericardial effusion. 3. There is a small, loculated left pleural effusion with adjacent left
basilar atelectasis. An empyema with adjacent pneumonia is possible although considere)
Lab Data: Labs Reviewed by me (WBC 12.0, pBNP 4390)
Impression/Plan
-
IMPRESSION/PLAN:
#left-side chest discomfort likely 2/2 empyema
EKG: NORMAL SINUS RHYTHM
POSSIBLE LEFT ATRIAL ENLARGEMENT
LEFT VENTRICULAR HYPERTROPHY WITH REPOLARIZATION ABNORMALITY ( Sokolow-Malave , Romhilt-Trammell )
CXR: No acute cardiopulmonary abnormality.
Chest CT: 1. No evidence of pulmonary embolism.
2. Postoperative changes of aortic and tricuspid valve replacements. Small pericardial effusion.
3. There is a small, loculated left pleural effusion with adjacent left basilar atelectasis. An empyema with adjacent pneumonia is possible although considered slightly less likely.
4. Mild apical emphysematous changes.
5. Mild heterogeneity along the posterior aspect of the spleen which is similar in prior and may be sequelae of prior infarction.
6. Scattered pulmonary nodules measuring up to 7 mm in the left upper lobe. The majority appear present on prior. A follow-up may be considered.
- Admit to telemetry
- Consult IR for thoracentesis
- IV Zosyn
- supportive care
#right groin and testicle discomfort
- CT Abd/Pel with IV contrast
#HFrEF
- daily weights
- I & Os
- continue metoprolol
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
s/p 27 mm Valenzuela Inspiris [place] aortic valve, 33 mm Valenzuela Inspiris [place]ilia mitral valve placed in tricuspid position, debridement of mitral valve, left atrial appendage clip
- continue Eliquis
#alcohol abuse
#Hx infectious endocarditis x3
#Hx pulmonary embolism
#Hx IV drug abuse
Code status: full code
DVT prophylaxis: Eliquis
[2025-03-07] MEDS: NSS 1000 IV (19:14)
[2025-03-07] MEDS: MAXIPIME 2000 MG IV (19:16)
[2025-03-07 19:30] LABS: COVID-19 Antigen Negative (Negative)
[2025-03-07] MEDS: MORPHINE SULFATE 2 MG IV (19:40)
--- NOTE | 2025-03-07 19:40 | W.PN.UPDATE ---
Update Note
Progress Note Update
This is an addendum to H&P written by Aura Sullivan on 02/22/2025. �Patient seen and examined independently with NAIL SETTER.
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
mitral valve, bioprosthetic tricuspid valve replacement, cardiomyopathy, L5-S1 discitis, splenic infarct/abscess, pulmonary embolism of left lung on Eliquis, prior endocarditis x 3, alcohol use disorder, 3 of IV drug abuse, history of right inguinal
hernia surgery when 18, tobacco use, presenting for left-sided pleuritic chest pain and shortness of breath for 2 to 3 days. �No fevers or chills. No recent drug use.
Also complains of pain in his right lower groin radiating down to his testicle. �No prior history of kidney stones.
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
anterior leaflet of mitral valve, bioprosthetic tricuspid valve replacement as well as acute pulmonary embolism of the left lung.
Vital signs normal.
Labs show leukocytosis. �Cardiac BNP 4300 from 800 previously.
Chest x-ray shows no acute cardiopulmonary abnormality. �CT PE shows postoperative changes of aortic/tricuspid valve replacements, small pericardial effusion. �There is small loculated pleural effusion with adjacent left basilar atelectasis. �An
empyema with adjacent pneumonia is possible although slightly less likely.
Patient with pleuritic chest pain and cough likely secondary to small loculated pleural effusion, clinically could be empyema. �Check blood cultures, Zosyn. �IR consulted for thoracentesis.
Patient also with right groin pain seems like a hernia although no palpable hernia. Check nonurgent CT abdomen pelvis.
[2025-03-07] MEDS: VANCOCIN 540 MG IV (19:47)
[2025-03-07] MEDS: TOPROL XL 25 MG PO (21:39)
[2025-03-07] MEDS: ELIQUIS 5 MG PO (21:40)
[2025-03-07] MEDS: TORADOL 10 MG IV (23:02)
[2025-03-08] MEDS: ZOSYN 50 IV ×5 (00:05→23:19)
[2025-03-08] MEDS: MORPHINE SULFATE 2 MG IV ×6 (00:05→22:09)
[2025-03-08 03:16] VITALS: BP 132/90
[2025-03-08 07:00] VITALS: BP 135/86
[2025-03-08 07:08] LABS: Hematocrit 40.3 % (39.0-52.0); Hemoglobin 13.9 g/dL (13.0-18.0); Mean Corp Hgb Conc. 34.5 g/dL (33.0-37.0); Mean Corpuscular Volume 89.8 fL (80.0-94.0); Platelet Count 206 10^3/uL (130-400); Red Cell Dist. Width 13.2 % (11.5-14.5)
[2025-03-08] MEDS: TOPROL XL 25 MG PO ×2 (07:28→19:49)
[2025-03-08] MEDS: ELIQUIS 5 MG PO ×2 (07:28→19:49)
[2025-03-08 07:37] LABS: Blood Urea Nitrogen 13 mg/dl (9-20); Calcium 8.3 mg/dl (8.4-10.2); Carbon Dioxide 25 mmol/L (22-30); Chloride 110 mmol/L (98-107); Estimated Creatinine Clearance > 125 ml/min; Glucose 91 mg/dl (70-99); Potassium 4.0 mmol/L (3.5-5.1); Sodium 140 mmol/L (135-145); eGFR > 60.00
[2025-03-08] MEDS: OMNIPAQUE 50 ML PO (08:24)
[2025-03-08] MEDS: TYLENOL 650 MG PO (09:49)
[2025-03-08 11:00] VITALS: BP 148/103
[2025-03-08 15:00] VITALS: BP 137/88
--- NOTE | 2025-03-08 15:37 | W.PN.HOSP.TC ---
Today's Communication/Plan
-
consult ID
cont zosyn
follow cultures
Assessment / Plan
Assessment / Plan
pt is a 40 year old male
left-side chest discomfort --unclear cause--pt had lactic acid 2.1 on admission and does appear to be warm with chills/shakes?--concern for infection--thoughts include empyema but unclear if amt of fluid able to be drained--would matthews culture if not
already done--cont zosyn--ID consult--? splenic infarct, abscess as cause of symptoms--plan for thoracentesis by IR tomorrow 03/09/25
right groin and testicle discomfort--? resolved--did not c/o to me--CT scan without abnormalities in that regard
HFrEF-no acute exacerbation - daily weights, I/Os--cont metoprolol--consider cards
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
Hx alcohol abuse
Hx infectious endocarditis x3
Hx pulmonary embolism
Hx IV drug abuse
Code status-- full code
DVT proph-- Eliquis
Anticipated Discharge: > 48 hours
Subjective/Interval History
-
Date of Service: March 08, 2025
pt denies c/o
Objective Data
-
Labs:
Laboratory Results
03/08/25
06:30
WBC 6.6
Hgb 13.9
Hct 40.3
Plt Count 206 D
Sodium 140
Potassium 4.0
Chloride 110 H
Carbon Dioxide 25
BUN 13
Creatinine 0.8
Glucose 91
Calcium 8.3 L
Vital Signs:
max temp for 24 hours
03/08/25
15:00
Temp 98.0 F
Vital Signs
Temp Pulse Resp BP Pulse Ox
98.0 F 59 19 137/88 99
03/08/25 15:00 03/08/25 15:00 03/08/25 15:00 03/08/25 15:00 03/08/25 15:00
Review of Systems
-
All other systems: Reviewed and negative
Physical Exam
-
General: Well Developed, Well Nourished and Other (ill appearing, SOB, feels hot, and shaking)
HEENT: Normocephalic and Atraumatic; Negative Oxygen
Respiratory: Decreased Breath Sounds (left base)
Cardiac: Regular Rhythm and S1/S2; Negative Murmur
GI: Soft, Nontender, Nondistended and Normal Bowel Sounds
Musculoskeletal: No Clubbing, No Cyanosis and No Edema
Neuro: Awake
--- NOTE | 2025-03-08 16:52 | CM ---
Patient seen at bedside on . Patient stated that he lives in a boarding home. Patient indicated that he was having issues with bills, CM provided information on resources. CM will continue to follow for discharge planning needs.
Plan; home with girlfriend
[2025-03-08 19:11] VITALS: BP 131/88
[2025-03-08] MEDS: FLUSH (NSS) 3 FLUSH IV (22:10)
[2025-03-08] MEDS: FLUSH (NSS) 2 FLUSH IV (23:20)
[2025-03-08 23:43] VITALS: BP 132/88
[2025-03-09] VITALS (7 sets, daily range): BP systolic 54–159; BP diastolic 80–101; BMI 26.9
[2025-03-09] MEDS: MORPHINE SULFATE 2 MG IV ×5 (03:34→23:04)
[2025-03-09] MEDS: FLUSH (NSS) 5 FLUSH IV (03:35)
[2025-03-09] MEDS: ZOSYN 50 IV (05:10)
[2025-03-09] MEDS: FLUSH (NSS) 4 FLUSH IV (05:10)
[2025-03-09 07:25] LABS: Hematocrit 37.1 % (39.0-52.0); Hemoglobin 13.0 g/dL (13.0-18.0); Mean Corp Hgb Conc. 35.0 g/dL (33.0-37.0); Mean Corpuscular Volume 90.5 fL (80.0-94.0); Platelet Count 237 10^3/uL (130-400); Red Cell Dist. Width 13.2 % (11.5-14.5)
[2025-03-09] MEDS: TOPROL XL 25 MG PO ×2 (07:25→20:42)
[2025-03-09] MEDS: ELIQUIS PO (07:30)
[2025-03-09 07:44] LABS: ALT (SGPT) 13 U/L (0-50); AST (SGOT) 21 U/L (17-59); Albumin 3.4 g/dl (3.5-5.0); Alkaline Phosphatase 88 U/L (38-126); Blood Urea Nitrogen 10 mg/dl (9-20); Calcium 8.2 mg/dl (8.4-10.2); Carbon Dioxide 25 mmol/L (22-30); Chloride 108 mmol/L (98-107); Estimated Creatinine Clearance 113 ml/min; Glucose 88 mg/dl (70-99); Potassium 4.0 mmol/L (3.5-5.1); Sodium 139 mmol/L (135-145); Total Protein 6.0 g/dl (6.3-8.2); eGFR > 60.00
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
--- NOTE | 2025-03-09 13:56 | W.PN.HOSP.TC ---
Today's Communication/Plan
-
await IR eval
cont abx per ID--apprec input
Assessment / Plan
Assessment / Plan
pt is a 40 year old male
left-side chest discomfort --unclear cause--pt had lactic acid 2.1 on admission and does appear to be warm with chills/shakes?--concern for infection--thoughts include empyema but unclear if amt of fluid able to be drained--would matthews culture if not
already done--cont zosyn--ID consult--? splenic infarct, abscess as cause of symptoms--plan for thoracentesis by IR 03/09/25
right groin and testicle discomfort--? resolved--did not c/o to me--CT scan without abnormalities in that regard
HFrEF-no acute exacerbation - daily weights, I/Os--cont metoprolol--consider cards
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
Hx alcohol abuse
Hx infectious endocarditis x3
Hx pulmonary embolism
Hx IV drug abuse
Code status-- full code
DVT proph-- Eliquis
Anticipated Discharge: 24 - 48 hours
Subjective/Interval History
-
Date of Service: March 09, 2025
pt looks better to me today--nursing reports asking for IV morphine every 4 hours regularly
Objective Data
-
Labs:
Laboratory Results
03/09/25
06:07
WBC 6.1
Hgb 13.0
Hct 37.1 L
Plt Count 237
Sodium 139
Potassium 4.0
Chloride 108 H
Carbon Dioxide 25
BUN 10
Creatinine 0.9
Glucose 88
Calcium 8.2 L
Total Bilirubin 0.6
AST 21
ALT 13
Alkaline Phosphatase 88
Vital Signs:
max temp for 24 hours
03/08/25
19:11
Temp 98.4 F
Vital Signs
Temp Pulse Resp BP Pulse Ox
97.3 F 66 19 128/86 99
03/09/25 11:00 03/09/25 11:00 03/09/25 11:00 03/09/25 11:00 03/09/25 11:00
I&O
03/08/25 03/09/25 03/10/25
06:59 06:59 06:59
Intake Total 2440 / 2440
Balance 2440 / 2440
Review of Systems
-
All other systems: Reviewed and negative
Physical Exam
-
General: Well Developed, Well Nourished and No Apparent Distress
HEENT: Normocephalic and Atraumatic
Respiratory: Clear to Auscultation; Negative Wheezes or Rhonchi
Cardiac: Regular Rhythm and S1/S2; Negative Murmur
GI: Soft, Nontender, Nondistended and Normal Bowel Sounds
Musculoskeletal: No Clubbing, No Cyanosis and No Edema
Skin: Warm
Neuro: Awake
Psych: Calm
--- NOTE | 2025-03-09 14:12 | CM ---
Patient seen at bedside in [facility] with physician. Patient states he feels somewhat better. CM will continue to follow for discharge planning needs.
Plan; home with no needs vs home with VN
--- NOTE | 2025-03-09 14:22 | W.PN.UPDATE ---
Update Note
Progress Note Update
US performed, there is a tiny left pleural effusion, too small for thoracentesis. No procedure performed.
[2025-03-09] MEDS: ELIQUIS 5 MG PO (20:42)
[2025-03-10 03:04] VITALS: BP 150/103
[2025-03-10 05:48] VITALS: BMI 26.7
[2025-03-10] MEDS: MORPHINE SULFATE 2 MG IV ×2 (06:20→10:42)
[2025-03-10 06:51] LABS: Hematocrit 38.2 % (39.0-52.0); Hemoglobin 13.3 g/dL (13.0-18.0); Mean Corp Hgb Conc. 34.8 g/dL (33.0-37.0); Mean Corpuscular Volume 88.8 fL (80.0-94.0); Platelet Count 256 10^3/uL (130-400); Red Cell Dist. Width 13.2 % (11.5-14.5)
[2025-03-10 07:08] LABS: ALT (SGPT) 13 U/L (0-50); AST (SGOT) 21 U/L (17-59); Albumin 3.6 g/dl (3.5-5.0); Alkaline Phosphatase 88 U/L (38-126); Blood Urea Nitrogen 9 mg/dl (9-20); Calcium 8.7 mg/dl (8.4-10.2); Carbon Dioxide 25 mmol/L (22-30); Chloride 109 mmol/L (98-107); Estimated Creatinine Clearance > 125 ml/min; Glucose 92 mg/dl (70-99); Magnesium 2.0 mg/dl (1.6-2.3); Potassium 4.3 mmol/L (3.5-5.1); Sodium 139 mmol/L (135-145); Total Protein 6.2 g/dl (6.3-8.2); eGFR > 60.00
[2025-03-10 07:30] VITALS: BP 154/99
[2025-03-10] MEDS: ELIQUIS 5 MG PO ×2 (07:57→22:39)
[2025-03-10] MEDS: TOPROL XL 25 MG PO ×2 (07:58→22:39)
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
[2025-03-10 11:30] VITALS: BP 100/73
[2025-03-10 12:17] LABS: Procalcitonin < 0.05 ng/ml (0.0-0.25)
--- NOTE | 2025-03-10 13:27 | W.PN.HOSP.TC ---
Today's Communication/Plan
-
d/c tomorrow if stable
Assessment / Plan
Assessment / Plan
pt is a 40 year old male
left-side chest discomfort --unclear cause--pt had lactic acid 2.1 on admission--concern for infection--not enough fluid to tap on US by IR--would matthews culture if not already done-- zosyn stopped--apprec ID--? splenic infarct, as cause of
symptoms--change IV morphine to oral oxycodone Q6H
right groin and testicle discomfort--resolved--did not c/o to vt--CT scan without abnormalities in that regard
HFrEF-no acute exacerbation - daily weights, I/Os--cont metoprolol--consider cards
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
Hx alcohol abuse
Hx infectious endocarditis x3
Hx pulmonary embolism
Hx IV drug abuse
Code status-- full code
DVT proph-- Eliquis
Anticipated Discharge: Within 24 hours
Subjective/Interval History
-
Date of Service: March 10, 2025
pt doing ok but nursing reports using IV morphine every 4 hours religiously
Objective Data
-
Labs:
Laboratory Results
03/10/25
06:16
WBC 6.5
Hgb 13.3
Hct 38.2 L
Plt Count 256
Sodium 139
Potassium 4.3
Chloride 109 H
Carbon Dioxide 25
BUN 9
Creatinine 0.7
Glucose 92
Calcium 8.7
Total Bilirubin 0.4
AST 21
ALT 13
Alkaline Phosphatase 88
Vital Signs:
max temp for 24 hours
03/09/25
19:21
Temp 98.0 F
Vital Signs
Temp Pulse Resp BP Pulse Ox
97.6 F 64 16 100/73 98
03/10/25 11:30 03/10/25 11:30 03/10/25 11:30 03/10/25 11:30 03/10/25 11:30
I&O
03/09/25 03/10/25 03/11/25
06:59 06:59 06:59
Intake Total 2440 / 2440 1740 / 1740
Balance 2440 / 2440 1740 / 1740
Review of Systems
-
All other systems: Reviewed and negative
Physical Exam
-
General: Well Developed, Well Nourished and No Apparent Distress
HEENT: Normocephalic and Atraumatic; Negative Oxygen
Respiratory: Clear to Auscultation; Negative Wheezes or Rhonchi
Cardiac: Regular Rhythm and S1/S2; Negative Murmur
GI: Soft, Nontender, Nondistended and Normal Bowel Sounds
Musculoskeletal: No Clubbing, No Cyanosis and No Edema
Neuro: Awake and Alert
Psych: Calm
--- NOTE | 2025-03-10 14:02 | CM ---
Addendum entered by Gela Sherman 03/10/25 15:15:
[facility] spoke with patient and indicated that patient has the needed resources and no further intervention is needed at this time, per Kirk at [facility].
Original Note:
Patient seen at bedside on with physician. Patient updated by physician plan for discharge tomorrow. Patient consented to talking to [facility] and CM called to [facility] and Kirk is to come to talk to patient per brittani Rodriguez. Patient indicated
that he would have a ride tomorrow. CM will continue to follow for discharge planning needs.
Plan; home with [facility] support as needed.
[2025-03-10] MEDS: TYLENOL 650 MG PO ×2 (15:23→22:39)
[2025-03-10 15:45] VITALS: BP 134/86
[2025-03-10 19:05] VITALS: BP 138/84
[2025-03-10 23:04] VITALS: BP 131/80
[2025-03-11] MEDS: TYLENOL PO ×3 (00:35→12:00)
[2025-03-11 06:00] VITALS: BMI 26.2
[2025-03-11 07:44] VITALS: BP 140/90
[2025-03-11] MEDS: TYLENOL 650 MG PO (09:34)
[2025-03-11] MEDS: ELIQUIS 5 MG PO (09:35)
[2025-03-11] MEDS: TOPROL XL 25 MG PO (09:35)
--- NOTE | 2025-03-11 09:44 | CM ---
Patient seen at bedside with physician on . Patient for discharge today. Patient spoke with [facility] and per Kirk all information, resources were provided. CM confirmed patient has a ride and plan is for home with no needs at this time. CM will
continue to follow for discharge planning needs.
Plan; home with no needs.
--- NOTE | 2025-03-11 09:47 | W.PN.HOSP.TC ---
Today's Communication/Plan
-
D/C
Assessment / Plan
Assessment / Plan
pt is a 40 year old male
ok for D/C
left-side chest discomfort --unclear cause--pt had lactic acid 2.1 on admission--no further concern for infection, procalcitonin neg--not enough fluid to tap on US by IR--cultures negative-- zosyn stopped--apprec ID--? splenic infarct, as cause of
symptoms--changed IV morphine to oral oxycodone Q6H (did not take any)
right groin and testicle discomfort--resolved--did not c/o to me--CT scan without abnormalities in that regard
HFrEF-no acute exacerbation - daily weights, I/Os--cont metoprolol--consider cards
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
Hx alcohol abuse
Hx infectious endocarditis x3
Hx pulmonary embolism
Hx IV drug abuse
Code status-- full code
DVT proph-- Eliquis
Anticipated Discharge: Today
Subjective/Interval History
-
Date of Service: March 11, 2025
pt ready for d/c
Objective Data
-
Vital Signs:
max temp for 24 hours
03/10/25
15:45
Temp 98.2 F
Vital Signs
Temp Pulse Resp BP Pulse Ox
97.5 F 56 16 140/90 99
03/11/25 07:44 03/11/25 07:44 03/11/25 07:44 03/11/25 07:44 03/11/25 07:44
I&O
03/10/25 03/11/25 03/12/25
06:59 06:59 06:59
Intake Total 1740 / 1740 1040 / 1760 720 / 720
Balance 1740 / 1740 1040 / 1760 720 / 720
Review of Systems
-
All other systems: Reviewed and negative
Physical Exam
-
General: Well Developed, Well Nourished and No Apparent Distress
HEENT: Normocephalic and Atraumatic
Respiratory: Clear to Auscultation; Negative Wheezes or Rhonchi
Cardiac: Regular Rhythm and S1/S2; Negative Murmur
GI: Soft, Nontender, Nondistended and Normal Bowel Sounds
Musculoskeletal: No Clubbing, No Cyanosis and No Edema
Neuro: Awake
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
[2025-03-11 11:59] VITALS: BP 136/82
--- NOTE | 2025-03-12 07:08 | W.DCSUMMARY ---
Discharge Summary
Discharge Data
Date of Admission: 03/07/25
Date of Discharge: 03/11/25
-
Pending Results: No
Hospital Course
Primary care physician : Sakina Yu
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
Chronic Discharge diagnosis : Heart failure with reduced ejection fraction without exacerbation, endocarditis status post valve replacement December 2024, history of alcohol abuse, history of pulmonary embolism, history of IV drug use
Hospital Course : Patient is a 40-year-old male who had a significant history for infectious endocarditis x 3 with recent valve replacement in December 2024 who presented with left-sided chest pain. Symptoms started 4 days prior to admission, was not
sharp in nature, with associated shortness of breath and dry cough. He denied fevers or chills. He also reported discomfort in his right groin and testicle which resolved. Patient was admitted.
Problem #1: Left-sided chest discomfort. Patient was admitted and seen in consultation by ID. He was started on IV Zosyn. CAT scan of the abdomen and pelvis showed decreased size of hypodense foci within the anterior and posterior aspect of the
spleen which were favored to represent infarctions. There is also a small left loculated pleural effusion with mild left basilar opacities which may have represented pneumonia or parapneumonic effusion. Patient was seen in consultation by IR.
Ultrasound was done which showed trace left-sided pleural effusion and not enough to tap. Procalcitonin was negative. Patient was taken off IV Zosyn. Cultures were negative. It was thought that his presentation was consistent with pain from the
splenic infarcts.
Problem #2: All other medical issues. These include Heart failure with reduced ejection fraction without exacerbation, endocarditis status post valve replacement December 2024, history of alcohol abuse, history of pulmonary embolism, history of IV drug
use. These medical issues were stable during his hospitalization. Medications were continued as able.
Patient is stable for discharge home at this time off antibiotics. If there are any questions regarding this dictation or his hospital stay, please do not hesitate to call. Our office number is [phone].
Important imaging findings :
CT SCAN ABDOMEN/PELVIS IMPRESSION:
There are decreased size of the hypodense foci within the anterior and posterior aspect of the spleen which are favored to represent evolving infarctions. Abscesses are possible although considered less likely.
Small left loculated pleural effusion with mild left basilar opacities which may represent atelectasis with an adjacent effusion although pneumonia with parapneumonic effusion is possible.
There is scarring along the interpole of the right kidney as well as minimal scarring in the superior pole the left kidney, similar to prior.
Discharge Plan
-
Patient Disposition: Home (Routine Discharge)
Discharge Diagnosis/Procedures: Left-sided chest discomfort thought splenic infarcts as likely cause, right groin and testicle discomfort resolved, heart failure with reduced ejection fraction no exacerbation, endocarditis status post valve
replacement December 2024, pulmonary embolism, history of IV drug use, history of alcohol use
Condition: Good
Diet: As tolerated, Regular and 2 Gram Sodium
Activity: No restrictions and As tolerated
Driving Restrictions: As prior to admission
Bathing Restrictions: None
Referrals:
SAKINA YU MD [Family Provider, Family Practice] - in less than 1 week
Prescriptions:
Continued
acetaminophen 325 mg Tablet
650 mg PO Q4HPRN PRN (Reason: mild pain,headache,temp >101F ) Qty: 0 0RF
metoprolol succinate 25 mg Tablet Extended Release 24 Hr
25 mg PO BID Qty: 60 0RF
Eliquis 5 mg Tablet
5 mg PO BID Qty: 60 1RF
Discharge Orders:
Discharge Patient (As Directed); Ordered 03/11/25
Ordered By: Jerri Gonazlez
Discharge Date and Time
Discharge Date/Time: 03/11/25 13:30
Print Language: [id number]
== END 2025-03-11 13:30 | disposition home or self-care (01) | DRG 814 ==
LOC: 3 WEST ACU 19:14
PROVIDERS: Emergency Medicine; Nurse Practitioner Family; ADMITTING PHYSICIAN Hospitalist; ATTENDING PHYSICIAN Internal Medicine; EMERGENCY PHYSICIAN Emergency Medicine; FAMILY PHYSICIAN Family Medicine; OTHER PHYSICIAN Internal Medicine Infectious Disease
DX: D73.5 Infarction of spleen (principal); I33.0 Acute and subacute infective endocarditis; I50.22 Chronic systolic (congestive) heart failure; F10.11 Alcohol abuse, in remission; Z86.711 Personal history of pulmonary embolism; F19.11 Other psychoactive substance abuse, in remission; F17.210 Nicotine dependence, cigarettes, uncomplicated; Z95.2 Presence of prosthetic heart valve; Z11.52 Encounter for screening for COVID-19
CPT/HCPCS: 71046; 71275; 74177; 76604; 80048; 80053; 83605; 83735; 83880; 84145; 84484; 85025; 85027; 85610; 87040; 87070; 87811; 93005; 96374; 96375; 99291; 99406; Q9967